=== PATIENT | female | born 1935 | race Caucasian/White ===

== ENCOUNTER 2016-10-31 17:08 | Inpatient (IN) | payer OTHER, MEDICARE ==
[~2016-10-31] VITALS: Ht 172.7 cm; Wt 87.2 kg
--- NOTE | 2016-10-31 17:15 | NUR ---
PT TO ED WITH DAUGHTER FOR EVAL OF LEFT FOOT WOUND, HYPOTENSION AND ADVANCING DIABETIC NEUROPATHY. SENT IN BY DR OCONNOR. PT HAS HAD 30 LB WEIGHT LOSS. BP 85/50, PT TAKEN TO POD 3 VIA W/C FOR PROVIDER EVAL. PT IS HARD OF HEARING.
--- NOTE | 2016-10-31 17:28 | NUR ---
APPRECIATE TRIAGE NOTE. PT TO ROOM 21 VIA WHEELCHAIR AND ASISTED ONTO STRETCHER. PT APPEARS PALE AND REPORTS WEAKNESS, REPOSITIONED FOR COMFORT. AWAITING PROVIDER EVAL AT THIS TIME.
--- NOTE | 2016-10-31 17:49 | NUR ---
PA BLACK TO BEDSIDE TO DISCUSS RESULTS AND POC.
--- NOTE | 2016-10-31 17:58 | ED ANKLE/FOOT INJURY COMPLAINT ---
History of Present Illness General Chief Complaint: General Adult Stated Complaint: SENT BY DR ELVIN MATTHEWS FOR EVAL OF L FOOT Source: patient, family Exam Limitations: no limitations Vital Signs & Intake/Output Vital Signs & Intake/Output Vital Signs Date Time Temp Pulse Resp B/P B/P Pulse O2 O2 Flow FiO2 Mean Ox Delivery Rate 11/01 0007 92 16 108/62 95 Room Air 10/31 2059 96.4 96 20 105/52 95 Room Air 10/31 1907 95 124/65 10/31 1807 98.5 92 18 109/57 98 Room Air Room Air 10/31 1712 98.2 98 20 85/50 97 Room Air ED Intake and Output 11/01 0000 10/31 1200 Intake Total 1000 Output Total 80 Balance 920 Intake, IV 1000 Output, Urine 80 Patient 158 lb Weight Weight Estimated Measurement Method Allergies Coded Allergies: No Known Allergies (10/31/16) Triage Note: PT TO ED WITH DAUGHTER FOR EVAL OF LEFT FOOT WOUND, HYPOTENSION AND ADVANCING DIABETIC NEUROPATHY. SENT IN BY DR OCONNOR. PT HAS HAD 30 LB WEIGHT LOSS. BP 85/50, PT TAKEN TO POD 3 VIA W/C FOR PROVIDER EVAL. PT IS HARD OF HEARING. Triage Nurses Notes Reviewed? yes Occurred: last week Duration: week(s): (1), constant, continues in ED, getting worse Timing: single episode today Severity: moderate, severe Severity Numbers: 10 Pain/Injury Location: Left: Foot. Method of Injury: unknown No Modifying Factors: none Associated Symptoms: swelling, redness LMP (ages 10-50): post menopausal : No Patient currently breastfeeds: No HPI: 80-year-old female with past medical history of diabetes, CHF, A. fib on Eliquis and hypotension sent in by her primary care doctor for evaluation of left foot cellulitis. Patient reports that over the last week she has noticed an ulceration on her left foot that has become red and swollen and painful. Pain is located on the dorsum of the left foot and is worse with movement or touching the area. She rates the pain as a 10 out of 10 and states the pain radiates up her leg. Associated soft tissue swelling in the left lower leg. She also reports swelling in the right lower leg and open lesions on the right foot. She denies any chest pain, shortness of breath, abdominal pain, fevers, dizziness, headaches, syncope, hemoptysis recent surgery, recent travel, estrogen use. She was seen by her doctor earlier today and was going to be started on Levaquin but she came right to the emergency department. Her daughter reports that one week ago she had a ultrasound of the bilateral lower extremities that was negative for DVT. Additionally patient's daughter reports that patient has been increasing her Lasix due to worsening lower extremity edema. She usually takes 20 mg once daily but has now been taking 40 mg. (SANTIAGO MANRIQUE PA-C) Reconcile Medications Apixaban (Eliquis) 2.5 MG TABLET 1 TAB PO BID BLOOD THINNER (Reported) Diltiazem HCl (Cardizem Cd) 240 MG CAP.ER.24H 1 CAP PO QHS HEART/BP (Reported ) Furosemide 20 MG TABLET 1 TAB PO EOD DIURETIC (Reported) Furosemide (Lasix) 40 MG TABLET 1 TAB PO AD DIURETIC (Reported) Levofloxacin (Unknown Strength) TABLET (Unknown Dose) UNKNOWN (Reported) Metformin HCl 500 MG TABLET 1 TAB PO QAM DM (Reported) Metformin HCl 500 MG TABLET 2 TAB PO QPM DM (Reported) Multivitamin (Multi-Day Vitamins) 1 EACH TABLET 1 TAB PO DAILY SUPPLEMENT ( Reported) Omeprazole 40 MG CAPSULE.DR 1 CAP PO DAILY AC GI (Reported) Oxycodone HCl/Acetaminophen (Oxycodone-Acetaminophen 5-325) 5 MG-325 MG TABLET 1 TAB PO 4XDAILY PRN PAIN (Reported) Ramipril 10 MG CAPSULE 1 CAP PO QAM BP (Reported) Simvastatin (Zocor*) 20 MG TABLET 1 TAB PO QPM CHOLESTEROL (Reported) (SALOME LÓPEZ,WIN) Past History Travel History Traveled to [place] past 21 day No Medical History Any Pertinent Medical History? see below for history Neurological: peripheral neuropathy Cardiovascular: AFIB, hypotension Endocrine: diabetes Blood Disorders: anemia Surgical History Surgical History: none Psychosocial History What is your primary language [place] Citizen Tobacco Use: Quit >30 days ago ETOH Use: denies use Illicit Drug Use: denies illicit drug use Family History Hx Contributory? Yes (SANTIAGO MANRIQUE PA-C) Review of Systems Review of Systems Constitutional: Reports: see HPI, malaise, weakness, unexplained weight loss. EENTM: Reports: no symptoms. Respiratory: Reports: no symptoms. Cardiovascular: Reports: no symptoms. GI: Reports: no symptoms. Genitourinary: Reports: no symptoms. Musculoskeletal: Reports: see HPI, joint pain, joint swelling, muscle pain. Skin: Reports: see HPI, lesions. Neurological/Psychological: Reports: no symptoms. Hematologic/Endocrine: Reports: no symptoms. Immunologic/Allergic: Reports: no symptoms. All Other Systems: Reviewed and Negative (HILARIA MCNALLY,SANTIAGO) Physical Exam Physical Exam General Appearance: well developed/nourished, alert, awake, anxious, moderate distress Head: atraumatic, normal appearance Eyes: Bilateral: normal appearance, PERRL, EOMI. Ears, Nose, Throat: normal pharynx, normal ENT inspection Neck: normal inspection, supple, full range of motion, no midline tenderness Cardiovascular/Respiratory: normal breath sounds, normal peripheral pulses, regular rate/rhythm, no respiratory distress Back: normal inspection, normal range of motion, no vertebral tenderness Leg/Knee/Thigh Left: normal range of motion Leg/Knee/Thigh Right: normal range of motion, normal inspection Ankle Left: normal range of motion, soft tissue tenderness, swelling Ankle Right: normal range of motion, soft tissue tenderness, swelling Foot Left: normal range of motion, infection, nail injury (great toe nail missing), soft tissue tenderness, swelling, there is a superficial ulceration approximately 2 cm in diameter located on the dorsum of the foot. There is some surrounding soft tissue swelling and erythema. No focal fluctuant areas or discharge. There are also multiple other smaller ulcerations located on the dorsum of the foot. Neurovascular supply is intact. No lymphatic streaking. Foot Right: normal range of motion, soft tissue tenderness, swelling, there are multiple superficial ulcerations and abrasions located on the right foot. No surrounding erythema or edema. Neurovascular supply is intact. Reflexes: 2+: knee (R), knee (L). Neuro/Vascular: normal motor function, normal sensation Tendon: normal tendon function Psychiatric: awake, alert, oriented x 3 Skin: intact, normal color, warm/dry (HILARIA MCNALLY,SANTIAGO) Progress Differential Diagnosis: DVT, cellulitis, septic arthritis, gout, fracture, dislocation, sprain, contusion, sepsis, septic shock, hypotension, dehydration Plan of Care: Orders Procedure Date/time Status PHOSPHORUS 11/01 599 Active MAGNESIUM 11/01 599 Active CBC WITHOUT DIFFERENTIAL 11/01 599 Active CALCIUM 11/01 599 Active BASIC ELECTROLYTES PLUS BUN&CR 07/04 0600 Active ECHOCARDIOGRAM 07/04 0600 Active LACTIC ACID 11/01 0143 Active LACTIC ACID 11/01 0000 Active Admit to inpatient 10/31 2157 Active Lab Add-on Test 10/31 2134 Active Lab Add-on Test 10/31 2133 Active Pathway - chart 11/01 2123 Active House Staff 11/01 2123 Active Patient Data 11/01 2123 Active Code Status 11/01 2123 Active Patient Data 10/31 2117 Active LACTIC ACID 10/31 205 Complete EKG 10/31 205 Active BLOOD CULTURE 10/31 181 Active VIT D 25 HYDROXY 10/31 181 Active PHOSPHORUS 10/31 181 Active MAGNESIUM 10/31 181 Active GLYCOSYLATED HGB 10/31 181 Active Telemetry/Computer Game Programmer 10/31 175 Active BLOOD CULTURE 10/31 175 Active URINALYSIS 10/31 175 Complete LACTIC ACID 10/31 175 Active C-REACTIVE PROTEIN 10/31 175 Active COMPREHENSIVE METABOLIC PANEL 10/31 175 Active CBC WITHOUT DIFFERENTIAL 10/31 175 Complete B-TYPE NATRIURETIC PEP (BNP) 10/31 1757 Active Intake & Output 10/31 1750 Active Weight 10/31 UNK Active VTE Mechanical Prophylaxis 10/31 UNK Active MISTAKE 10/31 UNK Active Intake & Output 10/31 UNK Active FingerStick- Glucose 10/31 UNK Active Howard, Insertion/Removal/Asses 10/31 UNK Active Elevate 10/31 UNK Active Current Medications Sig/Abundio Start time Last Medication Dose Stop Time Status Admin Diltiazem HCl 240 MG AT BEDTIME 11/01 2200 AC (Cardizem CD) Atorvastatin Calcium 20 MG 1700 11/01 1700 AC (Lipitor) Insulin Aspart 0 TIDAC 11/01 0800 AC (NovoLOG) Omeprazole 40 MG DAILY AC 11/01 0700 AC (Prilosec) Cefazolin Sodium 1,000 MG IQ8 11/01 0000 AC 11/01 (Kefzol-Ancef Inj) 0007 Apixaban 2.5 MG BID 10/31 2301 UNVr (Eliquis) Magnesium Sulfate 2 GM Q2H 10/31 2245 UNVr 11/01 (Mag Sulfate in D5) 11/01 0244 0023 Dextrose/Water 100 ML (D5W) Sodium Chloride 1,000 ML Q13H 10/31 2245 AC 10/31 (Normal Saline 0.9%) 2253 Acetaminophen 650 MG Q6P PRN 10/31 2129 AC (Tylenol) Acetaminophen/ 1 TAB Q6P PRN 10/31 2129 AC Hydrocodone Bitart (Vicodin) Hydromorphone HCl 1 MG Q6P PRN 10/31 2129 AC (Dilaudid) Laboratory Tests 10/31/167: Urine Color YEL, Urine Clarity HAZY H, Urine pH 6.0, Ur Specific [place] 1.020, Urine Protein 30 H, Urine Ketones TRACE H, Urine Nitrite NEG, Urine Bilirubin NEG, Urine Urobilinogen 0.2, Ur Leukocyte Esterase MOD H, Ur Microscopic SEDIMENT EXAMINED, Urine RBC 3-5, Urine WBC > 75 H, Ur Epithelial Cells FEW, Urine Bacteria PACKD H, Urine Hemoglobin SMALL H, Urine Glucose NEG 10/31/162054: Lactic Acid 6.6 H 10/31/161809: Anion Gap 18 H, Estimated GFR 23 L, BUN/Creatinine Ratio 10.5, Glucose 129 H, Hemoglobin A1c Pending, Lactic Acid 8.7 H, Calcium 6.2 L, Phosphorus 4.7 H, Magnesium 0.6 *L, Total Bilirubin 0.6, AST 32, ALT 32, Alkaline Phosphatase 101, C-Reactive Prot, Quant < 0.5, Mnm-W-Kfzmiijcydt Pept 3460 H, Total Protein 5.4 L, Albumin 2.5 L, Globulin 2.9, Albumin/Globulin Ratio 0.9 L, 25-OH Vitamin D Total 10.9 L, CBC w Diff NO MAN DIFF REQ, RBC 2.92 L, MCV 98.5, MCH 32.3 H, RDW 14.5, MPV 8.0, Gran % 80.5 H, Lymphocytes % 14.3 L, Monocytes % 5.0, Eosinophils % 0, Basophils % 0.2, Absolute Granulocytes 6.9 H, Absolute Lymphocytes 1.2, Absolute Monocytes 0.4, Absolute Eosinophils 0, Absolute Basophils 0, PUBS MCHC 32.8 L Microbiology 10/31 1818 BLOOD: Blood Culture - RECD 10/31 1809 BLOOD: Blood Culture - RECD 10/31 1756 BLOOD: Blood Culture - CAN Cancelled: Cancelled via OE: WRONG 6 PM: Patient seen and evaluated. There are multiple erythematous ulcerations located on the bilateral feet. She is hypotensive to the 80s over 50s. We'll give her a liter of normal saline an effort to bring up her blood pressure. Possible that her blood pressure may be so low due to increased Lasix. Blood cultures drawn lactic acid basic blood work. We'll then start her on ceftriaxone IV. Blood pressure is too low for pain medication. She'll be reassessed after a fluid bolus. 8PM: Pressure responded well to a fluid bolus. Last blood pressure was 120s over 60s. Lactic acid came back at 8.7 which may be due to the hypotension. Patient doesn't have a white blood cell count, she is afebrile, and left lower cellulitis does not look severe. It is unlikely that patient was in septic shock. Hypotension responded very well to fluids and was likely the result of increasing Lasix over the past few days. Calcium is also low and BUN and creatinine are elevated compared to previous. DISCUSSED findings with patient. Recommended patient be admitted for IV antibiotics, gentle hydration, serial labs, blood pressure monitoring, calcium repletion. As well as paged. Case discussed with Dr. Oconnor and she agrees the plan. (SANTIAGO MANRIQUE PA-C) Departure Departure Disposition: STILL A PATIENT Condition: Stable Clinical Impression Primary Impression: Hypotension Qualifiers: Hypotension type: unspecified hypotension type Qualified Code: I95.9 - Hypotension, unspecified Secondary Impressions: Foot ulcer, left Qualifiers: Non-pressure ulcer stage: limited to breakdown of skin Qualified Code: L97.521 - Non-pressure chronic ulcer of other part of left foot limited to breakdown of skin Hypocalcemia Lactic acidemia Referrals: ELVIN LÓPEZ,CELE Rivers (PCP/Family) Departure Forms: Customer Survey General Discharge Information Admission Note Spoke With: SHABNAM LÓPEZ,DALE Documentation of Exam: Documentation of any treatments & extenuating circumstances including Concerns Regarding Discharge (functional status, medication knowledge or non-compliance, living conditions, etc.) that warrant an admission rather than observation: Patient requires admission due to hypotension, hypocalcemia, lactic acidosis, and foot ulcerations. [Patient requires gentle iv hydration, serial labs, infectious disease consult, cardiology consult, calcium repletion, monitoring of vital signs, iv antibiotics] (SANTIAGO MANRIQUE PA-C) PA/MATE SHIP Co-Sign Statement Statement: ED Attending supervision documentation- [X] I saw and evaluated the patient. I have also reviewed all the pertinent lab results and diagnostic results. I agree with the findings and the plan of care as documented in the PA's/MATE SHIP's documentation. [X] I have reviewed the ED Record and agree with the PA's/MATE SHIP's documentation. [] Additions or exceptions (if any) to the PAs/MATE SHIP's note and plan are summarized below: [] (SALOME LÓPEZ,WIN)
--- NOTE | 2016-10-31 18:14 | NUR ---
BLOOD DRAWN AND SENT TO LAB. LAV,SST,BLUE,DUMONT, 1ST SET OF BLOOD CULTURES.
--- NOTE | 2016-10-31 18:27 | NUR ---
#22 EST. AND NS IVF BOLUS ADMINISTERED PER ORDER.
[2016-10-31 18:35] LABS: ABSOLUTE BASOPHIL COUNT 0 /CUMM (0.0-0.2); ABSOLUTE EOSINOPHIL COUNT 0 /CUMM (0.0-0.7); ABSOLUTE GRANULOCYTE CT 6.9 /CUMM (1.4-6.5); ABSOLUTE LYMPH COUNT 1.2 /CUMM (1.2-3.4); ABSOLUTE MONOCYTE COUNT 0.4 /CUMM (0.10-0.60); BASOPHIL % 0.2 % (0.0-2.0); EOSINOPHIL % 0 % (0-5); GRANULOCYTE % 80.5 % (42.2-75.2); HEMATOCRIT 28.7 % (37-47); MEAN CORPUSCULAR HGB 32.3 PG (27.0-31.0); MEAN CORPUSCULAR HGB CONC 32.8 G/DL (33.0-37.0); MEAN CORPUSCULAR VOLUME 98.5 FL (81.0-99.0); PLATELET COUNT 229 /CUMM (130-400); RBC DISTRIBUTION WIDTH 14.5 % (11.5-14.5); RED BLOOD CELL CT 2.92 /CUMM (4.20-5.40); WHITE BLOOD CELL COUNT 8.6 /CUMM (4.8-10.8)
--- NOTE | 2016-10-31 18:40 | NUR ---
PA BLACK TO BEDSIDE TO DISCUSS PLAN OF CARE
--- NOTE | 2016-10-31 19:06 | NUR ---
MED WITH ROCEPHIN PER eMAR. XEROFORM WOUND TO LEFT FOOT COVERED AND WRAPPED. R LATERAL FOOT ULCER RED, WARM AND ALSO COVERED
--- NOTE | 2016-10-31 19:46 | NUR ---
CRITICAL TEST RESULTS [id number] CATHERINE LEAL 80 F TESTS AND RESULTS: LACTIC 8.7 Results received and read back by: MARY URBANO Results received date and time: 10/31/161945 The following provider was notified of the results, and read the results back: YENNY HENDERSON Notified date and time: 10/31/16 at 1947
--- NOTE | 2016-10-31 19:55 | NUR ---
DR. MCMAHON TO BEDSIDE FOR EVALUATION.
--- NOTE | 2016-10-31 20:59 | NUR ---
REPEAT LACTIC ACID ORDAZ
--- NOTE | 2016-10-31 21:20 | NUR ---
RADIOLOGY TO BEDSIDE FOR PCXY.
--- NOTE | 2016-10-31 21:40 | History & Physical ---
GERARDO YANG MD 10/31/16 4542: General Information and HPI MD Statement: I have seen and personally examined CATHERINE LEAL and documented this H&P. The patient is a 80 year old F who presented with a patient stated chief complaint of left foot redness and pain. Presents with acute renal failure and hypotension. Source of Information: patient, family, old records Exam Limitations: no limitations History of Present Illness: 80 year old female with PMH of Afib on eliquis, DM with neuropathy, CHF with no recent cardiology follow up, presents to ER for hypotension after being evaluated at the doctors office for left foot cellulitis/wound care and her BP was in the 80s systolic. Patient has been complaining off lightheadedness intermittently for several weeks and complaints of increasing lower extremity edema. Her lasix dose was doubled from 20mg to 40mg four days ago. Otherwise, review of systems is negative. Patient is independent and lives alone. Former smoker. Allergies/Medications Allergies: Coded Allergies: No Known Allergies (10/31/16) Home Med list Apixaban (Eliquis) 2.5 MG TABLET 1 TAB PO BID BLOOD THINNER (Reported) Diltiazem HCl (Cardizem Cd) 240 MG CAP.ER.24H 1 CAP PO QHS HEART/BP (Reported ) Furosemide 20 MG TABLET 1 TAB PO EOD DIURETIC (Reported) Furosemide (Lasix) 40 MG TABLET 1 TAB PO AD DIURETIC (Reported) Levofloxacin (Unknown Strength) TABLET (Unknown Dose) UNKNOWN (Reported) Metformin HCl 500 MG TABLET 1 TAB PO QAM DM (Reported) Metformin HCl 500 MG TABLET 2 TAB PO QPM DM (Reported) Multivitamin (Multi-Day Vitamins) 1 EACH TABLET 1 TAB PO DAILY SUPPLEMENT ( Reported) Omeprazole 40 MG CAPSULE.DR 1 CAP PO DAILY AC GI (Reported) Oxycodone HCl/Acetaminophen (Oxycodone-Acetaminophen 5-325) 5 MG-325 MG TABLET 1 TAB PO 4XDAILY PRN PAIN (Reported) Ramipril 10 MG CAPSULE 1 CAP PO QAM BP (Reported) Simvastatin (Zocor*) 20 MG TABLET 1 TAB PO QPM CHOLESTEROL (Reported) Compliance With Home Meds: GOOD Past History Travel History Traveled to [place] past 21 day No Medical History Neurological: peripheral neuropathy Cardiovascular: AFIB, hypotension Endocrine: diabetes Blood Disorders: anemia Surgical History Surgical History: none Past Family/Social History Psychosocial History ETOH Use: denies use Illicit Drug Use: denies illicit drug use Review of Systems Review of Systems Constitutional: Reports: chills, unexplained weight loss (10 pounds in 5 months). Denies: fever , malaise. Cardiovascular: Reports: edema, peripheral edema. Denies: chest pain. Respiratory: Denies: no symptoms. GI: Denies: abdominal pain, diarrhea, nausea. Genitourinary: Denies: no symptoms. Musculoskeletal: Denies: no symptoms. Exam & Diagnostic Data Last 24 Hrs of Vital Signs/I&O Vital Signs Date Time Temp Pulse Resp B/P B/P Pulse O2 O2 Flow FiO2 Mean Ox Delivery Rate 10/31 2058 96.4 96 20 105/52 95 Room Air 10/31 1907 95 124/65 10/31 1807 98.5 92 18 109/57 98 Room Air Room Air 10/31 1712 98.2 98 20 85/50 97 Room Air Physical Exam General Appearance Alert, Oriented X3, Cooperative, No Acute Distress Skin breakdown on feet, loss of toenails Skin Temp/Moisture Exam: Warm/Dry Sepsis Skin Exam (color): Pale HEENT Atraumatic, PERRLA, EOMI, Mucous Membr. moist/pink Neck Supple, No JVD Lymphatic Cervical nl Cardiovascular irregular rhythm 2/6 systolic murmur Lungs Clear to Auscultation, Normal Air Movement Abdomen Normal Bowel Sounds, Soft, large midline abdominal mass/reported as hernia? Neurological Normal Speech, Normal Tone, Cranial Nerves 3-12 NL, diminished foot sensation Extremities 2+ pitting edema to knees b/l Body Front and Back (Adult) 1) LLE cellulitis 2) Left foot wound 3) no toenail Last 24 Hrs of Labs/Carlos: Laboratory Tests 10/31/162054: Lactic Acid 6.6 H 10/31/16 1810: Anion Gap 18 H, Estimated GFR 23 L, BUN/Creatinine Ratio 10.5, Glucose 129 H, Hemoglobin A1c Pending, Lactic Acid 8.7 H, Calcium 6.2 L, Phosphorus 4.7 H, Magnesium 0.6 *L, Total Bilirubin 0.6, AST 32, ALT 32, Alkaline Phosphatase 101, C-Reactive Prot, Quant < 0.5, [id number] Pept 3460 H, Total Protein 5.4 L, Albumin 2.5 L, Globulin 2.9, Albumin/Globulin Ratio 0.9 L, 25-OH Vitamin D Total Pending, CBC w Diff NO MAN DIFF REQ, RBC 2.92 L, MCV 98.5, MCH 32.3 H, RDW 14.5, MPV 8.0, Gran % 80.5 H, Lymphocytes % 14.3 L, Monocytes % 5.0, Eosinophils % 0, Basophils % 0.2, Absolute Granulocytes 6.9 H, Absolute Lymphocytes 1.2, Absolute Monocytes 0.4, Absolute Eosinophils 0, Absolute Basophils 0, PUBS MCHC 32.8 L Microbiology 10/31 1818 BLOOD: Blood Culture - RECD 10/31 1809 BLOOD: Blood Culture - RECD 10/31 175 BLOOD: Blood Culture - CAN Cancelled: Cancelled via OE: WRONG Diagnostic Data EKG Results atrial fibrillation and qs waves in v1 v2 CXR Results cardiomegaly and left lung base opacity Assessment/Plan Assessment: 80 year old female with PMH of Afib, CHF, DM presents to ER for hypotension after evaluation for left foot cellulitis/wound care at PCP. 1. Hypotension: patient had lasix dose recently doubled, hypotension secondary to hypovolemia and improved with IV fluid hydration. Admit to general medicine. Monitor vitals qshift 2. Acute Renal Failure: likely prerenal with history of recently increased diuretic, will place patel to rule out post renal causes and obtain urinalysis. NS@75cc/hr Follow up AM labs to reassess renal function 3. Lactic Acidosis: also related to hypovolemia and hypotension, inadequate perfusion in the setting of overdiuresis. Trend lactate levels and continue gentle IV fluid hydration until normal. 4. Atrial Fibrillation: Continue rate control with diltiazem XL 240mg QHs Eliquis 2.5mg BID for anticoagulation 5. CHF: patient has not followed up with cardiology, currently lungs are clear and clinically patient is hypovolemic rather than fluid overload, continue IV hydration cautiously, repeat CXR tomorrow. Check echocardiogram Consider cardiology consultation Check daily weights 6. Electrolyte disturbances: calcium repleted in the ER, Magnesium 2g IV x 2 ordered, critical value 0.6 7. Cellulitis-start IV Ancef follow up blood cultures drawn in ER Consider wound care consultation 8. Diabetes: Accucheck TIDAC/HS Sliding insulin scale Check hemoglobin a1c 9. Abdominal mass: patient is reluctant to have what she reports as a large hernia for many years investigated or repaired, will reassess if any GI symptoms or complaints of abdominal pain Diabetic diet DVT ppx-eliquis Full code-patient doesn't desire prolonged resuscitative effort As Ranked By This Provider Problem List: 1. Foot ulcer, left Qualifiers Non-pressure ulcer stage: limited to breakdown of skin Qualified Code: L97.521 - Non-pressure chronic ulcer of other part of left foot limited to breakdown of skin 2. Hypocalcemia 3. Hypotension Qualifiers Hypotension type: unspecified hypotension type Qualified Code: I95.9 - Hypotension, unspecified 4. Acute renal failure 5. Atrial fibrillation, chronic Core Measures/Miscellaneous Acute Coronary Syndrome ACS Diagnosis: No Cerebrovascular Accident CVA/TIA Diagnosis: No Congestive Heart Failure CHF Diagnosis: No VTE (View Protocol) VTE Risk Factors: Acute medical illness, Age > 40 No [facility] VTE prophylaxis d/t: No contraindications No VTE Pharm Prophylaxis d/t: No contraindications VTE Diagnosis: No VTE Type: NONE VTE Confirmed by (Test): NONE Sepsis (View Protocol) Severe Sepsis Present: No Septic Shock Septic Shock Present: No Miscellaneous Documentation Attending Case Discussed With: DALE HAQUE MD Primary Care Physician: CELE OCONNOR MD Patient sees these Specialists none Level of Patient Care: General Medicine PERRY LUDWIG 10/31/16 2300: Resident Review Statement Resident Statement: examined this patient, discussed with internet project manager, agreed with internet project manager Other Findings: Patient is 80-year-old female with past medical history significant for diabetes with diabetic neuropathies, hypertension, vitamin B12 deficiency anemia, atrial fibrillation and congestive heart failure came with chief complaint of worsening lower extremity edema and left lower extremity edema with being wounds for last couple of days. Patient endorses that she was very tired and noticed worsening lower extremity edema last 3 weeks. She had history of off-and-on lower extremity wounds and severe peripheral neuropathies but her left lower extremity wound was weeping for last couple of days for which she went to see her PCP and was advised to go to ER for evaluation of left lower extremity cellulitis and hypotension. Because of worsening lower extremity edema she was placed on high dose of Lasix than usual. She had intermittent lightheadedness but denies any fall or syncopal episode. She denied chest pain, palpitations, headache, fever, chills, cough, any urinary or bowel complaints. She is compliant with her medications and denied any polyuria lately. She does loss almost 10 pounds in 5-6 months. He hasn't been seen any tube inspector for a long time. She lives alone at home and independent with her ADLs and IADLs. Uses walker at home for ambulation. Vital signs on admission were temperature 98.2, pulse 88, respiratory rate 20, blood pressure 85/50. Her on 105/52, oxygen saturation 97% on room air. Labs were significant for WBC count 8.6, hemoglobin 9.4, hematocrit 28.7, platelet count 229, sodium 139, potassium 4.4, BUN/creatinine 22, creatinine 2.1 , lactic acid 8.7 came down to 6.6, calcium 6.2 corrected 7.0, phosphorus 4.7, magnesium 0.6, proBNP 3460, albumin 2.5. Had recent lower extremity Doppler on October 13 showed no evidence of DVT. X-ray showed cardiomegaly with intermediate patchy opacity of left lung base. ED showed atrial fibrillation with no acute ST-T wave changes Physical examination She is alert and oriented 3 Head atraumatic Neck supple no JVD Chest clear to auscultate CVS S1 and S2 normal with irregularly irregular heart rate Abdomen soft to prevent with large abdominal hernia/mass freely mobile, no suprapubic tenderness or fullness, normal bowel sounds Lower extremities showed bilateral moderate lower extremity edema up to knees, multiple small wounds with absent left big toenail, open wound 2X2cm dorsal surface of left foot covered with dressing and lower extremity was wrapped in Levi bandages. On neurological examination decreased sensations of bilateral lower extremities with loss of position sense Suspect and plan 80-year-old female with history of severe peripheral neuropathies with diabetes, atrial fibrillation, CHF, hypertension and worsening lower extremity edema with left-sided lower extremity erythema most likely cellulitis and acute kidney injury most likely due to dehydration and recent increase in her diuretics. Admit patient on general medical floor and will take care for the following problems Problem #1 worsening bilateral lower extremity edema with left lower extremity cellulitis 1. We'll start patient on cefazolin and will change it to Keflex later. 2. Leg elevation 3. Daily weight and intake output record 4. We'll consider 1 consultation in a.m. and daily dressings 4. Echocardiogram in a.m. Problem #2 lactic acidosis most likely due to hypotension 1. We'll hydrate patient with normal saline 2. Will trend lactic acidosis Problem #3 hypotension most likely due to increase in her diuretics 1. We will check orthostatics 2. IV hydration Problem #4 hypomagnesemia most likely due to increasing diuretics We will replete magnesium with 2 g IV magnesium time to use and will repeat back in a.m. Problem #5 hypocalcemia most likely chronic She had calcium of 6.2 with corrected 7.0 and was given oral calcium for now we will consider giving oral calcium on discharge but given her history of AK I we will hold further calcium for now Problem #6 abdominal hernia/mass Patient refused to consider any further workup including CAT scan/any imaging study. Problem #7 acute kidney injury most likely due to increase in her dose of Lasix and dehydration We will place Patel's catheter for intake output record and rule out any post renal obstruction We will hydrate patient and check kidney functions in a.m. Problem #8 history of atrial fibrillation We'll continue her home dose of Eliquis Will continue her diltiazem Problem #9 history of hypertension We will hold her lisinopril and Lasix Problem #10 history of diabetes We will hold her oral hypoglycemics Accu-Cheks We'll start her on NovoLog according to sliding scale Problem #11 history of peripheral/diabetic neuropathies Given her oxycodone when necessary Diabetic diet Pharmacological DVT prophylaxis with Eliquis Patient is full code SHABNAM LÓPEZ, [facility] 11/01/16 0503: Attending MD Review Statement Attending Statement Attending MD Statement: examined this patient, discuss w/resident/PA/EDITORIAL CARTOONIST, agreed w/resident/PA/EDITORIAL CARTOONIST, discussed with family Attending Assessment/Plan: 80 yo F with h/o Afib on eliquis, T2DM w/ neuropathy, HTN, B12 def anemia, CHF, is brought in for evaluation of hypotension. History as provided by daughter, who reports ongoing bilateral LE edema for the past 3 weeks associated with leg pain and left foot wounds. She was advised to double up on the dose of lasix by her PCP, so patient has been taking 40 mg daily for past 3-4 days. He also prescribed levofloxacin for left foot cellulitis, but this has not been initiated yet. Today, at PCP's office, patient was noted to have a BP 80/65 and was sent in for evaluation to [facility]. Patient reports fatigue, exertional dyspnea and intermittent lightheadedness in the past few days. Denies chest pain , LOC or palpitations. Of note, daughter reports about 30 lbs weight lostt over past 6 months. Vitals: afebrile, BP 85/50 --> 124/65 --> 105/52. Exam: AAO, pallor+, dry mucous membranes, Chest clear, Abdo: soft, NT, midline soft globular mass ?hernia of unclear etiology, LE: b/l 2+ pitting edema with open wounds to left foot dorsal aspect with surrounding erythema, left great toenail absent. Labs: no leukocytosis, H/H 9.4/28.7 (baseline), bicarb 15, AG 18, BUN 22, creat 2.1 ( baseline 0.9), glucose 129, lactic acid 8.7 --> 6.6 --> 5.8, Calcium 6.2 ( corrected calcium 7.4), Mag 0.6, vit D 10.9. Orthostats negative. EKG: Afib. CXR : cardiomegaly with patchy opacity left lung base. LE dopplers (October 13) were negative for DVT. 1. Hypotension with resultant lactic acidosis, MISTY with high AG metabolic acidosis in the setting of recent diuretic use. BP has responded to IV fluids. GM admit, continue IV fluids, monitor for fluid overload, trend lactic acid and renal functions. Hold lasix, metformin and ramipril. Patel placement to rule out urinary obstruction/post renal cause. Strict I/O's. If renal functions does not improve, would consider renal ultrasound and nephro consult. 2. B/l LE edema with left foot cellulitis and nonhealing ulcer. Elevate LE, panculture, IV cefazolin, wound consult. Obtain echo to assess LV function. Unclear cause for worsening LE edema in the past 3 weeks. 3. Hypomagnesemia. Replete and recheck. 4. Abdominal mass of unclear etiology. Patient refuses to undergo further investigation with CT imaging, reports no discomfort that it has been there for many years now. 5. B12 deficiency anemia. Patient is being followed by Dr. Najma Weston and is on repletion. DVT ppx Eliquis. Full code.
--- NOTE | 2016-10-31 21:45 | NUR ---
PT MEDICATED PER EMAR.
--- NOTE | 2016-10-31 21:54 | RADIOLOGY REPORT ---
EXAMINATION: XR PORTABLE CHEST CLINICAL INFORMATION: Shortness of breath with lower extremity edema. COMPARISON: 01/06/2006. TECHNIQUE: Portable frontal view of the chest was obtained. FINDINGS: The heart appears mildly enlarged with a tortuous descending thoracic aorta. There is patchy nodular opacity identified lateral to the left heart margin at the left lung base indeterminate in etiology. An evolving infiltrate and pneumonia in the proper clinical setting could have this appearance. An underlying pulmonary nodule and neoplasm is not excluded. The lungs and pleural spaces otherwise appear clear without evidence of congestion, consolidation, or significant appearing effusion or atelectasis. There is no evidence of pneumothorax or pulmonary edema. Included osseous structures appear largely unremarkable. IMPRESSION: Cardiomegaly with indeterminate patchy opacity left lung base for which follow-up imaging is recommended to clearing.
--- NOTE | 2016-10-31 21:58 | NUR ---
HOUSE STAFF TO BEDSIDE FOR EVALUATION.
[2016-10-31] MEDS ORDERED: FUROSEMIDE20 M1 PO (22:00)
[2016-10-31] MEDS ORDERED: METFORMIN HCL500 M3 PO ×2 (22:00)
[2016-10-31] MEDS ORDERED: ELIQUIS2.5 M1 PO (22:00)
[2016-10-31] MEDS ORDERED: CARDIZEM CD240 M1 PO (22:01)
[2016-10-31] MEDS ORDERED: OMEPRAZOLE40 M1 PO (22:01)
[2016-10-31] MEDS ORDERED: ZOCOR20 M1 PO (22:01)
[2016-10-31] MEDS ORDERED: MULTI-DAY VITA1 EACH PO (22:01)
[2016-10-31] MEDS ORDERED: RAMIPRIL10 M1 PO (22:02)
[2016-10-31] MEDS ORDERED: OXYCODONE-ACET1 EACH PO (22:02)
[2016-10-31] MEDS ORDERED: LEVOFLOXACIN500 M1 (22:05)
[2016-10-31] MEDS ORDERED: LASIX40 M1 PO (22:07)
--- NOTE | 2016-10-31 22:12 | NUR ---
CRITICAL TEST RESULTS [id number] CATHERINE LEAL 80 F TESTS AND RESULTS: MAGNESIUM 0.6 Results received and read back by: KAITLIN GARCIA Results received date and time: 10/31/16 2212 The following provider was notified of the results, and read the results back: HOUSE STAFF Notified date and time: 10/31/16 at 2212
--- NOTE | 2016-10-31 22:45 | NUR ---
CRITICAL TEST RESULTS [id number] CATHERINE LEAL 80 F TESTS AND RESULTS: LACTIC 6.6 Results received and read back by: KAITLIN GARCIA Results received date and time: 10/31/16 2300 The following provider was notified of the results, and read the results back: HOUSE STAFF Notified date and time: 10/31/16 at 2245
--- NOTE | 2016-10-31 22:48 | NUR ---
PT BED ASSIGNMENT 229-2
--- NOTE | 2016-10-31 22:53 | NUR ---
UNABLE TO GIVE REPORT AT THIS TIME. PER MINISTER OF RELIGION RN'S ARE IN REPORT AT THIS TIME.
--- NOTE | 2016-10-31 23:40 | NUR ---
MAGNESIUM 2G INFUSING PER EMAR. PT TOLERATING WELL. PT WAITING FOR RN REPORT TO BE TRANSPORTED UPSTAIRS.
--- NOTE | 2016-11-01 00:29 | NUR ---
REPORT CALLLED TO MIKAYLA DIXON
[2016-11-01 01:22] VITALS: BP 100/50
--- NOTE | 2016-11-01 05:03 | Admission Certification ---
Admission Certification Certification Statement - As attending physician, I certify that at the time of - admission, based on clinical presentation, severity of - symptoms, need for further diagnostic testing and - therapeutic interventions, and risk of adverse outcomes - without in-hospital treatment, in my clinical assessment, - this patient requires an acute hospital stay for a minimum - of two nights or longer. I have also considered psychsocial - factors such as support system, advanced age, financial - issues, cognitive issues, and failed out-patient treatments, - past re-admission history, safety of patient, and lack of - compliance as applicable. Specific rationale supporting this admission is: Hypotension, MISTY, lactic acidosis.
[2016-11-01 06:54] VITALS: BP 108/80
[2016-11-01 08:14] LABS: ABSOLUTE BASOPHIL COUNT 0 /CUMM (0.0-0.2); ABSOLUTE EOSINOPHIL COUNT 0 /CUMM (0.0-0.7); ABSOLUTE GRANULOCYTE CT 6.2 /CUMM (1.4-6.5); ABSOLUTE LYMPH COUNT 1.7 /CUMM (1.2-3.4); ABSOLUTE MONOCYTE COUNT 0.5 /CUMM (0.10-0.60); BASOPHIL % 0.2 % (0.0-2.0); EOSINOPHIL % 0.5 % (0-5); GRANULOCYTE % 73.9 % (42.2-75.2); HEMATOCRIT 27.2 % (37-47); MEAN CORPUSCULAR HGB 32.8 PG (27.0-31.0); MEAN CORPUSCULAR HGB CONC 33.5 G/DL (33.0-37.0); MEAN CORPUSCULAR VOLUME 97.9 FL (81.0-99.0); MEAN PLATELET VOLUME 8.2 FL (7.4-10.4); PLATELET COUNT 186 /CUMM (130-400); RBC DISTRIBUTION WIDTH 14.1 % (11.5-14.5); RED BLOOD CELL CT 2.78 /CUMM (4.20-5.40); WHITE BLOOD CELL COUNT 8.4 /CUMM (4.8-10.8)
--- NOTE | 2016-11-01 08:53 | PN- Housestaff ---
GILLIAN LÓPEZ,MONICA 11/01/16 0849: Subjective Follow-up For: Hypotension in the setting of diuretic use MISTY with anion gap acidosis Multiple electrolyte abnormalities Subjective: I saw and examined the patient today morning She is doing well, reports significant pain on both her lower extremities (leg region), denies any lightheadedness, dizziness. She reports intense fatigue and unable to sleep overnight otherwise stable. Review of Systems Constitutional: Reports: see HPI. Objective Last 24 Hrs of Vital Signs/I&O Vital Signs Date Time Temp Pulse Resp B/P B/P Pulse O2 O2 Flow FiO2 Mean Ox Delivery Rate 11/01 0654 97.7 79 20 108/80 94 Room Air 11/01 0122 97.8 83 20 100/50 93 Room Air 11/01 0007 92 16 108/62 95 Room Air 10/31 2059 96.4 96 20 105/52 95 Room Air 10/31 1907 95 124/65 10/31 1807 98.5 92 18 109/57 98 Room Air Room Air 10/31 1712 98.2 98 20 85/50 97 Room Air Intake & Output 11/01 1600 11/01 0800 11/01 0000 Intake Total 1400 1000 Output Total 500 80 Balance 900 920 Intake, IV 1300 1000 Intake, Oral 100 Number 1 1 Bowel Movements Output, Urine 500 80 Patient 73.936 kg 71.668 kg Weight Weight Estimated Estimated Measurement Method Physical Exam General Appearance: Alert, Oriented X3, Cooperative, No Acute Distress Skin: No Rashes, No Breakdown HEENT: Atraumatic, PERRLA, EOMI Neck: Supple Cardiovascular: Normal S1, Normal S2, systolic murmur present Lungs: Clear to Auscultation, Normal Air Movement, minimal basal crackles present Abdomen: Normal Bowel Sounds, Soft, No Tenderness Neurological: Normal Speech, Sensation Intact, Cranial Nerves 3-12 NL Extremities: No Clubbing, No Cyanosis, 4+ pitting edema right > left Current Medications: Current Medications Sig/Abundio Start time Last Medication Dose Route Stop Time Status Admin Acetaminophen 650 MG Q6P PRN 10/31 2130 AC PO Acetaminophen/ 1 TAB Q6P PRN 10/31 2130 AC Hydrocodone Bitart PO Apixaban 2.5 MG BID 11/01 0130 AC 11/01 PO 1047 Atorvastatin Calcium 20 MG 1700 11/01 1700 AC PO Calcium 600 MG BID 11/01 1000 AC 11/01 PO 11/01 2201 1047 Calcium Carbonate 1,250 MG ONCE ONE 10/31 2014 DC 10/31 PO 10/31 2016 2144 Cefazolin Sodium 0 .STK-MED ONE 11/01 0008 DC .ROUTE Cefazolin Sodium 1,000 MG IQ8 / 0000 AC 11/01 IV 0847 Ceftriaxone Sodium 0 .STK-MED ONE 10/31 1858 DC .ROUTE Ceftriaxone Sodium 1,000 MG ONCE ONE 10/31 1815 DC 10/31 IV 10/31 1816 1850 Diltiazem HCl 240 MG AT BEDTIME 11/01 2200 AC PO Heparin Sodium 0 .STK-MED ONE 10/31 2308 DC (Porcine) .ROUTE Heparin Sodium 5,000 UNIT Q8 10/31 2200 DC 10/31 (Porcine) SC 2254 Hydromorphone HCl 1 MG Q6P PRN 10/31 2130 AC 11/01 IV 0556 Insulin Aspart 0 TIDAC 11/01 0800 AC SC Magnesium Chloride 64 MG BID 11/01 1000 AC 11/01 PO 11/01 2201 1047 Magnesium Sulfate 1 GM ONCE ONE 11/01 0900 AC 11/01 Dextrose/Water 100 ML IV 11/01 1259 1047 Magnesium Sulfate 2 GM Q2H 10/31 2245 DC 11/01 Dextrose/Water 100 ML IV 11/01 0244 0023 Omeprazole 40 MG DAILY AC 11/01 0700 AC 11/01 PO 0552 Oxycodone/ 0 .STK-MED ONE 10/31 2145 DC Acetaminophen PO Oxycodone/ 1 TAB ONCE ONE 10/31 2100 DC 10/31 Acetaminophen PO 10/31 2101 2144 Potassium Chloride 40 MEQ ONCE ONE 11/01 0900 DC 11/01 PO 11/01 0901 1047 Sodium Chloride 1,000 ML Q13H 10/31 2245 AC 11/01 IV 0130 Sodium Chloride 1,000 ML BOLUS ONE 10/31 1815 DC 10/31 IV 10/31 1914 1825 Last 24 Hrs of Lab/Carlos Results Last 24 Hrs of Labs/Mics: Laboratory Tests 11/01/16 1110: Lactic Acid Pending 11/01/16 0640: Lactic Acid 3.6 H 11/01/16 0640: Anion Gap 13, Estimated GFR 29 L, BUN/Creatinine Ratio 11.2, Calcium 5.4 *L, Phosphorus 3.7, Magnesium 1.1 L, PTH Intact 184.6 H, CBC w Diff NO MAN DIFF REQ, RBC 2.78 L, MCV 97.9, MCH 32.8 H, RDW 14.1, MPV 8.2, Gran % 73.9, Lymphocytes % 19.7 L, Monocytes % 5.7, Eosinophils % 0.5, Basophils % 0.2, Absolute Granulocytes 6.2, Absolute Lymphocytes 1.7, Absolute Monocytes 0.5, Absolute Eosinophils 0, Absolute Basophils 0, PUBS MCHC 33.5 11/01/16 0300: Lactic Acid Cancelled 11/01/16 0143: Lactic Acid Cancelled 11/01/16 0050: Lactic Acid 5.8 H 10/31/16 2327: Urine Color YEL, Urine Clarity HAZY H, Urine pH 6.0, Ur Specific Odum 1.020, Urine Protein 30 H, Urine Ketones TRACE H, Urine Nitrite NEG, Urine Bilirubin NEG, Urine Urobilinogen 0.2, Ur Leukocyte Esterase MOD H, Ur Microscopic SEDIMENT EXAMINED, Urine RBC 3-5, Urine WBC > 75 H, Ur Epithelial Cells FEW, Urine Bacteria PACKD H, Urine Hemoglobin SMALL H, Urine Glucose NEG 10/31/16 2055: Lactic Acid 6.6 H 10/31/16 1810: Anion Gap 18 H, Estimated GFR 23 L, BUN/Creatinine Ratio 10.5, Glucose 129 H, Hemoglobin A1c Pending, Lactic Acid 8.7 H, Calcium 6.2 L, Phosphorus 4.7 H, Magnesium 0.6 *L, Total Bilirubin 0.6, AST 32, ALT 32, Alkaline Phosphatase 101, Troponin I < 0.01, C-Reactive Prot, Quant < 0.5, Sdh-S-Hglcbbidbez Pept 3460 H, Total Protein 5.4 L, Albumin 2.5 L, Globulin 2.9, Albumin/Globulin Ratio 0.9 L, 25-OH Vitamin D Total 10.9 L, CBC w Diff NO MAN DIFF REQ, RBC 2.92 L, MCV 98.5, MCH 32.3 H, RDW 14.5, MPV 8.0, Gran % 80.5 H, Lymphocytes % 14.3 L, Monocytes % 5.0, Eosinophils % 0, Basophils % 0.2, Absolute Granulocytes 6.9 H, Absolute Lymphocytes 1.2, Absolute Monocytes 0.4, Absolute Eosinophils 0, Absolute Basophils 0, PUBS MCHC 32.8 L Microbiology 10/31 1818 BLOOD: Blood Culture - RECD 10/31 1809 BLOOD: Blood Culture - RECD 10/31 1756 BLOOD: Blood Culture - CAN Cancelled: Cancelled via OE: WRONG Assessment/Plan Assessment: 80-year-old female with history of 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 Labs at admission significant for WBC count 8.6, H&H 9.4/28.7, platelet count 229, Na 139, K 4.4, BUN/Cr 22, Cr 2.1, lactic acid 8.7 --> 6.6, calcium 6.2 corrected 7.0, phosphorus 4.7, magnesium 0.6, proBNP 3460, albumin 2.5. Recent lower extremity Doppler on 10/13/16 showed no evidence of DVT. X-ray showed cardiomegaly with intermediate patchy opacity of left lung base. EKG A.Fib with no acute ST-T wave changes No previous ECHO records available - EF unknown for now. Admit patient on general medical floor and will take care for the following problems worsening bilateral lower extremity edema with left lower extremity cellulitis * Continue cefazolin 1gm Q8 with eventual transition to Keflex later. * Leg elevation * Daily weight and intake output record * wound consultation in a.m. and daily dressings * Echocardiogram in a.m. Lactic acidosis in the setting of MISTY/hyotension/metformin intake * Aggressively hydrated with 3L NS so far * Currently on NS @ 75ml/hr * Aniongap resolved * Lactic acid trending down 8.7 --> 6.6 --> 5.8-->3.6 * Holding lasix/metformin/ hypotension most likely secondary to dehydration (diuretic induced) * Orthostatics negative and asymptomatic * Continue hydration and monitor for signs of overload * EF unknown -- we will obtain an ECHO for a baseline ECHO * examination today is significant for good air entry into lungs with very minimal crackles and 3-4+ pitting edema Multiple electrolyte abnomalitis in the setting increased lasix dose * Mag of 0.6 at admission--> 1.1 today morning -- aggressively repleting * Calcium of 6.2 (corrected 7) at admission --> 5.4 today morning -- repleted * K of 4.4 at admission --> 3.3 today morning -- repleted * Recheck BEP at 4pm abdominal mass probably hernia * Patient refused to consider any further workup including CAT scan/any imaging study. MISTY * Cr 2.1 at admission --> 1.7 responding to fluids indicating prerenal * Howard's catheter in place * Monitor In's and Out's given EF unknown -- total urine output 1000ml * Holding lasix and lisinopril Chronic and stable conditions Atrial fibrillation: continue eliquis 2.5mg BID and diltiazem 240mg at bedtime HTN: Holding lisinopril and Lasix in the setting of MISTY and hypotension -- monitor BP Diabetes: Hold metformin; on atorvastatin 20mg- continue Accuchecks with sliding scale Pain management with Tylenol mild/Dilaudid IV Q6 PRN Diabetic diet DVT prophylaxis On Eliquis Code status full code Problem List: 1. Hypotension 2. Hypocalcemia 3. Foot ulcer, left 4. Lactic acidemia 5. Atrial fibrillation, chronic Pain Ratin Pain Location: both lower extrmities Pain Goal: Pain 4 or less Pain Plan: tylenol Dilaudid Tomorrow's Labs & Rationales: cbc to monitor white count bep to monitor electorlytes and Cr Lactic acid MICHAEL CHAIDEZ MD 11/01/16 1333: Attending MD Review Statement Attending Statement Attending MD Statement: examined this patient, discuss w/resident/PA/HEATING ELEMENT BUILDER, agreed w/resident/PA/HEATING ELEMENT BUILDER, reviewed EMR data (avail), discussed with nursing Attending Assessment/Plan: 80-year-old female multiple medical problems including A. fib on Eliquis, diabetes with diabetic neuropathy, history of chronic heart failure unclear what type and this masslike lesion in the abdominal area questionable hernia. She is here with hypotension, lactic acidosis in the setting of what appears to be an infection with a cellulitis of the lower extremity and ordered a UTI. We are hydrating her, correcting her hypokalemia hypomagnesemia which we think is all secondary to increased dose of diuretic. Her MISTY is already better with her creatinine going from 2.1-1.7. Will need all records tomorrow including reports of previous echo. Continue IV Ancef for now and watch pressure closely. Continue her Eliquis and diabetic coverage. Of note her chest x-ray shows an opacity in the left lung base that will need further follow-up
--- NOTE | 2016-11-01 11:44 | NUR ---
0055 ADMITTED FROM ER VIA STRETCHER TO ROOM 229 BED 1.ACCOMPANIED BY DAUGHTER. 80 YRS OLD WF FROM HOME.A&OX3 BUT RUBY.ASSISTED TO BED & MADE COMFORTABLE. DENIES PAIN.NS FROM ER INFUSING WELL IN RFA.HL IN LW.F/C DRAINING LIGHT ALFREDITO URINE.BLE ELEVATED UO ON 2 PILLOWS.DSGS TO TOP OF LT.FOOT & LEFT HEEL.ON RA.NO RESP DISTRESS NOTED.ORIENTED TO ROOM & SURROUNDINGS.CALL DOWNING IN REACH.
[2016-11-01 13:44] VITALS: BP 100/70
--- NOTE | 2016-11-01 16:34 | NUR ---
CALLED TO ROOM BY PT, C/O PAIN 12/08 TO POPLITEAL AREA OF RIGHT LEG, BEHIND THE KNEE "IT FEELS LIKE A LUMP HERE THAT I JUST NOTICED, AND IT HURTS REALLY BAD", THIS NURSE ABLE TO PALPATE HARDENED AREA/ LUMP TO AREA, C/O BILATERAL CALF PAIN STATES THAT "IT FEELS LIKE ITS GETTING WORSE" CALL PLACED TO BUYING INTERN AT THIS TIME TO MAKE AWARE. UNABLE TO PALPATE PULSES TO BILATERAL LE. DOPPLER PULSES FOUND, PEDAL, POPLITAL AND POST TIB. DENIES CP, DENIES SOB, LSCTA. AWAITING BUYING INTERN TO JOE PT.
--- NOTE | 2016-11-01 17:06 | NUR ---
LEONARD AND PROJECT COACH IN TO SEE PT AT THIS TIME. STATED THAT PAIN TO PTS CALVES AND RIGHT POPLITEAL AREA SEEMS TO BE MUSCULAR AND US IS NOT NEEDED AT THIS TIME. MEDICATED PT WITH PO VICODIN PER REQUEST OF PT FOR PAIN -11/07.
[2016-11-01 21:00] VITALS: BP 74/40
--- NOTE | 2016-11-01 21:08 | Event Note ---
Event Note Event Note: S: Informed that the patient was looking pale, her last BP was 74/40. B: A/R. Spoke with the nurse. The video production intern and I had seen Ms Gonzalez fifteen minutes prior, she was alert and oriented complaining of pain and discomfort in LLE. She continues to get electrolyte replacements. We will bolus the patient 1000ml at 500 ml/hr. I have asked the nurse to keep a close eye on the patient. No previous ECHO report avialable. Will conitinue to monitor. 9.56. PM .Re Visited the patient. She is AOx3. Feels overwhelmed with the amount of times she has been stuck for blood. Bolus continues to run. BP: 82/50. H/H Stable. Urine output is improved over the last hour. Nurse concerned that Calcium Gluconate might make the patient additionally hypotensive. Will conitnue to monitor. .20. Visited patient at bedside she is asleep. Inform nurse that we can run the calcium gluconate at a decreased rate. Patient has been getting magnesium boluses. Patient will be continued on maintenance fluids running at 100 mL per hour. We will continue to monitor pressure. A.m. cortisol has been ordered in addition to the above. Attending made aware.
--- NOTE | 2016-11-01 21:15 | NUR ---
PT APPEARS PALE AT THIS TIME, BP 74/40, DENIES DIZZINESS, HR 80, 94% ON RA, RR 16 CALL TO ABBEY AT THIS TIME, AT BEDSIDE, ORDER FOR IV NS BOLUS, STAT H/H. LAST CA 5.4, CA GLUCONATE INFUSING, PO CA GIVEN, LAST MAG 1.3, 2 IV BOLUSES ORDERED, PO MAG GIVEN PER EMAR. LAST LACTIC 4.5 REDRAW ORDERED, IVF INCREASED TO 100 ML/HR FROM 75.
[2016-11-01 21:30] VITALS: BP 82/50
--- NOTE | 2016-11-01 21:43 | NUR ---
RECHECK BP 82/50, HR 86, 96% ON RA, CONTINUES TO BE A/O X 3, DENIES DIZZINESS, IVF NS BOLUS CONTINUES TO INFUSE. CONTINES TO DENY CP/ SOB.
[2016-11-01 21:47] LABS: ABSOLUTE BASOPHIL COUNT 0 /CUMM (0.0-0.2); ABSOLUTE EOSINOPHIL COUNT 0 /CUMM (0.0-0.7); ABSOLUTE GRANULOCYTE CT 6.2 /CUMM (1.4-6.5); ABSOLUTE LYMPH COUNT 1.6 /CUMM (1.2-3.4); ABSOLUTE MONOCYTE COUNT 0.6 /CUMM (0.10-0.60); BASOPHIL % 0.4 % (0.0-2.0); EOSINOPHIL % 0.6 % (0-5); GRANULOCYTE % 73.1 % (42.2-75.2); HEMATOCRIT 27.4 % (37-47); MEAN CORPUSCULAR HGB 32.3 PG (27.0-31.0); MEAN CORPUSCULAR HGB CONC 32.7 G/DL (33.0-37.0); MEAN CORPUSCULAR VOLUME 98.8 FL (81.0-99.0); MEAN PLATELET VOLUME 7.8 FL (7.4-10.4); PLATELET COUNT 195 /CUMM (130-400); RBC DISTRIBUTION WIDTH 14.6 % (11.5-14.5); RED BLOOD CELL CT 2.77 /CUMM (4.20-5.40); WHITE BLOOD CELL COUNT 8.4 /CUMM (4.8-10.8)
--- NOTE | 2016-11-01 22:23 | Event Note ---
Event Note Event Note: S: Nurse paged and reported patient is complaining of increased calf pain and possible lump behind knee which was not previously felt by pt. Nurse reported she was unable to feel pulses and would do doppler of pulses. B: 80 year old female with PMH of Afib on eliquis, DM with neuropathy, CHF with no recent cardiology follow up currently admitted for hypotension and L foot cellulitis. Pt stated she has increased pain in both her legs. States she feels like there is a lump under her right knee. Pt denies SOB, chest pain, fever, chills, n/v. On examination: lower extremities were symmetrical with no edema, mild erythema and tenderness. Pt's knee was examined. No mass was felt under the knee. Nurse completed dopplers and was able to locate popliteal, tibial, and dorsal pulses. A/P: Pt is an 80 y/o female with PMH of Afib on eliquis present with hypotension and cellulitis. Cellulitis ruled out DVT: Pt mistook a tendon under her right knee as lump. Pulses were present and there was no increased or asymmetric swelling of R leg. No signs of symptoms indicative of DVT or PE at this time. Pt is on DVT prophylaixis. - recommend continuing eliquis - no further workup necessary at this time
[2016-11-01 22:52] VITALS: BP 90/50
--- NOTE | 2016-11-01 22:57 | NUR ---
LATE ENTRY: CALL PLACED TO BLEACHER S[employer] PULP PAGER [phone] REGARDING ORDER FOR IV CALCIUM GLUCONATE ? SIDE EFFECT OF CAUSING HYPOTENSION, PT'S BP HAS BEEN LOW- SEE PREVIOUS RECORDINGS, AWAITING RESPONSE FROM ABBEY AT THIS TIME.
--- NOTE | 2016-11-01 23:02 | NUR ---
SPOKE WITH ABBEY AT THIS TIME PLAN IS TO HOLD IV CALCIUM GLUCONATE R/T POTENTIAL SIDE EFFECT OF HYPOTENSION. WILL REPORT OFF TO ONCOMING NURSE REGARDING THIS.
[2016-11-02] VITALS (8 sets, daily range): BP systolic 88–106; BP diastolic 60
--- NOTE | 2016-11-02 07:25 | PN- Housestaff ---
LUBA LÓPEZ,SANTIAGO 11/02/16 0722: Subjective Follow-up For: Left foot cellulitis and hypotension Subjective: Last night, she was hypotensive to 74/40 (see event note). She was receiving calcium gluconate, and the nurse thought this made her hypotensive. She received 1L NS bolus and her BP went up to 94/60. She also had calf pain last night and felt a lump. On exam, she had pulses and the lump was a tendon but a doppler was placed which we will follow up (see event note). This morning, she is feeling ok , still having pain in the left foot. Also, her patel is uncomfortable. Review of Systems Constitutional: Denies: no symptoms. Cardiovascular: Denies: no symptoms. Respiratory: Denies: no symptoms. Gastrointestinal: Denies: no symptoms. Genitourinary: Denies: no symptoms. Musculoskeletal: Reports: see HPI. Objective Last 24 Hrs of Vital Signs/I&O Vital Signs Date Time Temp Pulse Resp B/P B/P Pulse O2 O2 Flow FiO2 Mean Ox Delivery Rate 11/02 0950 97.8 98 18 88/60 90 Room Air 07/ 0621 98.4 100 16 94/60 98 Room Air 07/05 0425 94/60 07/05 0317 90/60 07/05 0047 88 104/60 /04 2252 100 18 90/50 97 07/04 2130 86 16 82/50 96 07/04 2100 80 16 74/40 94 Intake & Output 07/05 1600 07/05 0800 07/05 0000 Intake Total 1000 1600 Output Total 1200 451 Balance 1000 -1200 1149 Intake, IV 400 1600 Intake, Oral 600 Output, Stool 1 Output, Urine 1200 450 Patient 171 lb Weight Weight Chair scale Measurement Method Physical Exam General Appearance: Alert, Oriented X3, Cooperative, No Acute Distress Cardiovascular: A fib. Lungs: Clear to Auscultation Abdomen: Soft, No Tenderness, No Masses Extremities: Swelling and erythema of left foot. Current Medications: Current Medications Sig/Abundio Start time Last Medication Dose Route Stop Time Status Admin Acetaminophen 650 MG Q6P PRN 10/310 AC 11/02 PO 1435 Acetaminophen/ 1 TAB Q6P PRN 10/31 2130 AC / Hydrocodone Bitart PO 1655 Ampicillin Sodium/ 3,000 MG Q12H 11/02 1200 AC Sulbactam Sodium IV Sodium Chloride 100 ML Ampicillin Sodium/ 3,000 MG Q12 11/02 0700 DC 11/02 Sulbactam Sodium IV 1126 Sodium Chloride 100 ML Ampicillin Sodium/ 3,000 MG Q6 11/02 0615 DC Sulbactam Sodium IV Sodium Chloride 100 ML Apixaban 2.5 MG BID 11/01 0130 AC 11/02 PO 1126 Atorvastatin Calcium 20 MG 1700 11/01 1700 AC 11/01 PO 1614 Calcitriol 0.25 MCG DAILY 11/02 1500 AC PO Calcium 600 MG BID 11/01 1000 DC 11/01 PO 11/01 2201 2054 Calcium Carbonate 1,250 MG Q8 11/02 1452 AC PO Calcium Gluconate 1 GM ONCE ONE 11/02 0115 DC 11/02 Sodium Chloride 100 ML IV 11/02 0214 0213 Calcium Gluconate 1 GM ONCE ONE 11/01 1900 DC Sodium Chloride 100 ML IV 11/01 1959 Cefazolin Sodium 1,000 MG IQ8 11/01 0000 DC 11/02 IV 0022 Diltiazem HCl 240 MG AT BEDTIME 11/01 2200 PO Ergocalciferol 50,000 IU ONCE A WEEK 11/02 1000 AC 11/02 PO 12/21 1001 1126 Hydromorphone HCl 1 MG Q6P PRN 10/31 2130 AC 11/01 IV 1913 Insulin Aspart 0 TIDAC 11/01 0800 AC 11/02 SC 1150 Magnesium Chloride 64 MG BID 11/01 1000 DC 11/01 PO 11/01 2200 205 Magnesium Sulfate 1 GM Q2H 11/01 1900 DC 11/02 Dextrose/Water 100 ML IV 11/01 2259 0022 Omeprazole 40 MG DAILY AC 11/01 0700 AC 11/01 PO 0552 Sodium Chloride 1,000 ML BOLUS ONE 11/01 2115 DC 11/01 IV 11/01 2314 2107 Sodium Chloride 1,000 ML Q13H 10/31 2245 AC 11/02 IV 1309 Last 24 Hrs of Lab/Carlos Results Last 24 Hrs of Labs/Mics: Laboratory Tests 11/02/16 0937: Hemoglobin A1c 5.0 11/02/16 0937: Anion Gap 10, Estimated GFR 36 L, BUN/Creatinine Ratio 11.4, Calcium 6.2 L, Magnesium 1.6, Cortisol AM Sample 20.7, CBC w Diff NO MAN DIFF REQ, RBC 2.68 L, MCV 97.0, MCH 32.3 H, RDW 14.3, MPV 7.7, Gran % 83.8 H, Lymphocytes % 11.7 L, Monocytes % 4.0, Eosinophils % 0.3, Basophils % 0.2, Absolute Granulocytes 6.0, Absolute Lymphocytes 0.8 L, Absolute Monocytes 0.3, Absolute Eosinophils 0, Absolute Basophils 0, PUBS MCHC 33.3 11/01/16 2130: Lactic Acid 2.6 H 11/01/16 2130: Anion Gap 10, Estimated GFR 31 L, BUN/Creatinine Ratio 11.3, Calcium 5.6 *L, Magnesium 1.3 L, TSH 3.400, Free T4 1.51, CBC w Diff NO MAN DIFF REQ, RBC 2.77 L, MCV 98.8, MCH 32.3 H, RDW 14.6 H, MPV 7.8, Gran % 73.1, Lymphocytes % 19.3 L, Monocytes % 6.6, Eosinophils % 0.6, Basophils % 0.4, Absolute Granulocytes 6.2, Absolute Lymphocytes 1.6, Absolute Monocytes 0.6, Absolute Eosinophils 0, Absolute Basophils 0, PUBS MCHC 32.7 L 11/01/16 1735: Anion Gap 11, Estimated GFR 31 L, BUN/Creatinine Ratio 10.6, Lactic Acid 4.5 H , Calcium 5.7 *L, Magnesium 1.3 L 11/01/16 1600: Calcium Cancelled Assessment/Plan Assessment: 80-year-old female with history of 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 Labs at admission significant for WBC count 8.6, H&H 9.4/28.7, platelet count 229, Na 139, K 4.4, BUN/Cr 22, Cr 2.1, lactic acid 8.7 --> 6.6, calcium 6.2 corrected 7.0, phosphorus 4.7, magnesium 0.6, proBNP 3460, albumin 2.5. Recent lower extremity Doppler on 10/13/16 showed no evidence of DVT. X-ray showed cardiomegaly with intermediate patchy opacity of left lung base. EKG A.Fib with no acute ST-T wave changes. She is here with left lower extremity celllulitis and electrolyte abrnomalities. She has been intermittently hypotensive to 74/40 last night, responding to fluid boluses. 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 Recently increased lasix dose, but likely not the cause of her issues. This is probably caused by a vitamin D deficiency -Replete vitamin D [id number] Qweekly -Replete calcium with Ca gluconate -Endocrine, nephrology consult #Hypotension -Give 500mL NS bolus now -Monitor BP MISTY. Cr 2.1 at admission --> 1.7 responding to fluids indicating prerenal. We will continue fluid therapy. -D/c patel -Monitor In's and Out's -Gentle hydration -Holding lasix and lisinopril Chronic and stable conditions Atrial fibrillation: continue eliquis 2.5mg BID and diltiazem 240mg at bedtime HTN: Holding lisinopril and Lasix in the setting of MISTY and hypotension -- monitor BP Diabetes: Hold metformin; on atorvastatin 20mg- continue Accuchecks with sliding scale Pain management with Tylenol mild/Dilaudid IV Q6 PRN Diabetic diet DVT prophylaxis On Eliquis Code status full code Problem List: 1. Hypocalcemia 2. Hypotension 3. Cellulitis Pain Ratin Pain Location: Left foot. Pain Goal: Remain pain free Pain Plan: dilaudid Tomorrow's Labs & Rationales: CBC, BEP, caclium, LAREGLA MD,ZAHRAA 11/02/16 1316: Attending MD Review Statement Attending Statement Attending MD Statement: examined this patient, discuss w/resident/PA/ACUTE CARE SURGEON, agreed w/resident/PA/ACUTE CARE SURGEON, reviewed EMR data (avail) Attending Assessment/Plan: 80F PMH Afib on eliquis, T2DM w/ neuropathy, HTN, B12 def anemia, CHF admitted initially for LLE cellulitis, has had persistent hypotension since admission with metabolic derangement including hypocalcemia, hypomagnesemia, lactic acidosis, MISTY. Patient reports she is not fatigued and weak and overall feels well. All she cares about is if we are going to fix her foot. 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 Pituitary function appears intact. Morning cortisol levels have been normal, however the question of whether the patient is experiencing adrenal insufficiency and thsi is the cause for hypotension is still at hand. Renal function is steadily improving, and creatinine is 1.4 today. AFVSS NAD Anicteric, MMM Supple RRR no m/r/g CTAB Soft, NTND Left first toe erythema and swelling Pulses intact A&Ox3 no focal deficits 1. LLE cellulitis 2. Persistent hypotension 3. Hypocalcemia 4. Secondary hyperparathyroidism 5. Vitamin D deficiency 6. Hypomagnesemia 7. MISTY 8. Lactic acidosis Plan - Continue on general medicine - May give 500mL normal saline bolus and monitor BP - Replete calcium with calcium gluconate - Continue Ergocalciferol, may require Vitamin D3 infusion - Obtain endocrine, nephrology, and podiatry consults - Magnesium repletion with Slo-Mag - Continue Unasyn - Follow cultures - Monitor urine output - Continue home medications - DVT PPx - Trend lactate every 4 hours until normal - Daily CMP, Mg, Phos, CBC
--- NOTE | 2016-11-02 07:33 | RADIOLOGY REPORT ---
EXAMINATION: XR FOOT, LEFT CLINICAL INFORMATION: Osteomyelitis. COMPARISON: None TECHNIQUE: AP, lateral, and oblique views of the left foot. FINDINGS: There is no definite fracture. No dislocation. The soft tissue surrounding the first digit is swollen. There is no cutaneous ulceration identified. There are vascular calcifications. IMPRESSION: No fracture or dislocation. Soft tissue surrounding the first digit is swollen. No definite cutaneous ulcer is seen. Vascular calcifications. If there is continued concern for osteomyelitis of the foot MRI examination is recommended.
--- NOTE | 2016-11-02 07:57 | NUR ---
UPON COMING ONTO SHIFT IT WAS REPORTED THAT MY PATIENT IN WAS ORDERED CALCIUM 1MG IV. IT WAS HELD BECAUSE HER PRESSURE WAS 70/40. SHE WAS GIVIEN NS AT 100 ML/HR AND AT 0200 HER PRESSURE WAS 104/60. DR ABBEY ISLAS WAS PAGED AND 1GM CALCIUM GLUCONATE IN 110 ML IV PIGGYBACK WAS ORDERED AND TO RUN IN SLOWLY AT 60 ML/HR. I WAS TO RECHECK HER PRESSURE IN ONE HOUR. AT 0315 HER PRESSURE WAS CHECKED AND WAS 90/60. DR ABBEY ISLAS WAS PAGED AND HE SAID TO RUN NS AT 100 ML/HR FOR ONE HOUR AND RECHECK PRESSURE. AT 0415 PRESSURE WAS CHECKED AND WAS 94/60. DR ABBEY ISLAS INSTRUCTED ME TO RUN REST OF CALCIUM GLUCONATE OUT AT 60 ML/HR AND THEN RUN NS AT 100 ML/HR AND TO CONSTANTLY CHECK ON HER WHILE CALCIUM WAS RUNNING. CALCIUM FINISHED AND NS RESUMED AT 100 ML/HR. PATIENT WAS ALERT AND ORIENTED AND PRESSURE AT 0600 WAS 90/60. WAS NOTIFIED. WILL CONTINUE TO MONITOR.
--- NOTE | 2016-11-02 09:11 | NUR ---
INTO SEE PATIENT DURING AM REPORT, [facility] HAD JUST CHANGED DRESSING, THEY ARE CDI, NO DRAINAGE NOTED, PATIENT WITH C/O DISCOMFORT ON BOTTOM, ROLLED TO SIDE TO INSPECT SKIN, COCCYX FOUND TO BE NONBLANCHABLE RED, WITH A BOOGY FEEL WHEN PUSHED, PATIENT WITH PAIN WHEN TOUCHED IN THIS AREA, [facility] RN WAS NOTIFIED AND WILL SEE PATIENT COCCYX TO ASSIST IN TREATMENT PLAN, SPECIALTY MATTRESS ORDERED AT THIS TIME, REFUSING ORTHOSTATIC B/P'S CLARIFYING ORDER WITH MD IT IS Q SHIFT, AND HAS BEEN NEGATIVE, B/P IS LOW WILL RECHECK AND MONITOR APPROPRIATE, MANISHA IS BOTHERING PATIENT C/O PAIN AND BURNING, DISCUSSED WITH MD CONTINUED NEED, WILL FOLLOW ORDERS. NEEDS IN REACH, SAFETY MAINTAINED.
[2016-11-02 09:50] LABS: ABSOLUTE BASOPHIL COUNT 0 /CUMM (0.0-0.2); ABSOLUTE EOSINOPHIL COUNT 0 /CUMM (0.0-0.7); ABSOLUTE LYMPH COUNT 0.8 /CUMM (1.2-3.4); ABSOLUTE MONOCYTE COUNT 0.3 /CUMM (0.10-0.60); BASOPHIL % 0.2 % (0.0-2.0); EOSINOPHIL % 0.3 % (0-5); MEAN CORPUSCULAR HGB 32.3 PG (27.0-31.0); MEAN CORPUSCULAR HGB CONC 33.3 G/DL (33.0-37.0); MEAN PLATELET VOLUME 7.7 FL (7.4-10.4); PLATELET COUNT 203 /CUMM (130-400); RBC DISTRIBUTION WIDTH 14.3 % (11.5-14.5); RED BLOOD CELL CT 2.68 /CUMM (4.20-5.40); WHITE BLOOD CELL COUNT 7.2 /CUMM (4.8-10.8)
--- NOTE | 2016-11-02 10:12 | NUR ---
WOUND CARE: REQUESTED BY NURSING STAFF TO EVAL PT FOR SKIN ALTERATIONS PRESENT ON ADMISSION TO LEFT HEEL AND FOOT - HX OBTAINED FROM PT AND CHART REVIEW - PT STATED DM WITH STABLE GLUCOSE CONTROL AT HOME - MONOFILAMENT TEST ABNORMAL WITH MINIMAL RESPONSE TO SENSATION - C/O PAIN WITH PALPATION TO LEFT FOOT - UPON ASSESSMENT, PT IS NOTED WTIH MULTIPLE WOUNDS TO THE LEFT FOOT AND DIGITS FOLLOWS: ELFT DORSAL FOOT 3.5 X 2.7 CM DRY DESICATED FULL THCNKESS WOUND 100% YELLOW FILL NON DRNG AND 1.5 X 1.5 CM DRY CASTRO SCABBED AREA NON DRNG - PERIWOUND 1 CM ERYTHEMA - LEFT GREAT TOE AVULSION OF NAIL BED WITH DARK PINK HYPERGRANULAR FILL - SCANT SEROPURULENT DRNG - LEFT 4TH AND 2ND TOE NOTED WTIH DRIED SCABBED AREAS 0.8 X 0.8 CM AND 0.4 X 0.4 CM - LEFT HEEL EVOLVING DTI 3X5 CM WITH 0.5 X 0.4 CM SCABBED OPEN AREA AT PROXIMAL MARGIN NEAR ACHILLIES - + PALPABLE DORSALIS PEDIS PULSES RIGHT - UNABLE TO PALPATE DP LEFT FOOT - PT STATED SHE SEES [facility] AND LAST SEEN 3 WEEKS PRIOR- RIGHT LATERAL FOOT EDMOND GRADE 1 DFU 1 CM SCABBED AREA IMPRESSION: CELLULITIS LEFT FOOT - EDMOND GRADE 2 DFU LEFT DORSAL FOOT AND DIGITIS - PTS VASCULAR STATUS UNKNOWN AT THIS TIME, AND WOUNDS MAY BE COMPLICATED BY VASCULAR COMPONENT RECOMMEDNATION: CONSIDER XRAY (DONE TODAY) - CLEANSE LEFT FOOT WOUNDS WITH NS FB XEROFORM GAUZE AND KERLIX DAILY - PAINT TOE WOUNDS WITH BETADINE - MONITOR HEEL QS - OFFLOAD FOOT AT ALL TIMES - PLEASE CONSIDER PODIATRY AND VASCULAR CONSULT TO NOTE, PT HAS SKIN ALTERATION TO BUTTOCKS WELL - UNABLE TO EXAMINE AT THIS TIME - WILL REASSESS PT WAS UNAVAILABLE AT THIS TIME
--- NOTE | 2016-11-02 10:21 | NUR ---
patient b/p still 88 stystolic spoke with md team, no wish for additional fluids at this time, awaiting labs, will follow orders as appropriate.
[2016-11-02 10:47] LABS: GRANULOCYTE % 83.8 % (42.2-75.2)
--- NOTE | 2016-11-02 14:41 | NUR ---
DYER REMOVED AT 1440, DTV [id number].
--- NOTE | 2016-11-02 17:23 | Cons- Infect Disease ---
General Information and HPI Consulting Request Date of Consult: 11/02/16 Requested By: KELLY ARAUZ MD Reason for Consult: Cellulitis of the left leg Source of Information: patient History of Present Illness: This is an 80-year-old woman with a history of atrial fibrillation, on Eliquis, Diabetes, with a neuropathy, and CHF admitted on October 31 with a several week history of left foot pain, with a nonhealing ulcer over the dorsum of her foot, bilateral calf pain and increased lower extremity edema, for which her dose of Lasix had been doubled, associated with fatigue, exertional dyspnea and intermittent lightheadedness, with no associated fevers or chills. On admission she was afebrile. Blood pressure was 85/50. Laboratory data revealed a white blood cell count of 9000, BUN/creatinine 22 and 2.1, CO2 15, lactic acid 8.7, with normal liver enzymes. Urinalysis 3-5 RBCs/greater than 75 WBCs. Chest x- ray revealed cardiomegaly with a patchy opacity at the left base. She was given a dose of Ceftriaxone in the emergency room and then placed on Cefazolin. She was given IV fluids with blood pressure on the evening of November 01 down to 74/40 but with some improvement overnight. This morning she was changed to Unasyn. She has remained afebrile and white blood cell count has remained normal since admission. At present she complains of pain in both feet and both calves. Allergies/Medications Allergies: Coded Allergies: No Known Allergies (10/31/16) Home Med List: Apixaban (Eliquis) 2.5 MG TABLET 1 TAB PO BID BLOOD THINNER (Reported) Diltiazem HCl (Cardizem Cd) 240 MG CAP.ER.24H 1 CAP PO QHS HEART/BP (Reported ) Furosemide 20 MG TABLET 1 TAB PO EOD DIURETIC (Reported) Furosemide (Lasix) 40 MG TABLET 1 TAB PO AD DIURETIC (Reported) Levofloxacin (Unknown Strength) TABLET (Unknown Dose) UNKNOWN (Reported) Metformin HCl 500 MG TABLET 1 TAB PO QAM DM (Reported) Metformin HCl 500 MG TABLET 2 TAB PO QPM DM (Reported) Multivitamin (Multi-Day Vitamins) 1 EACH TABLET 1 TAB PO DAILY SUPPLEMENT ( Reported) Omeprazole 40 MG CAPSULE.DR 1 CAP PO DAILY AC GI (Reported) Oxycodone HCl/Acetaminophen (Oxycodone-Acetaminophen 5-325) 5 MG-325 MG TABLET 1 TAB PO 4XDAILY PRN PAIN (Reported) Ramipril 10 MG CAPSULE 1 CAP PO QAM BP (Reported) Simvastatin (Zocor*) 20 MG TABLET 1 TAB PO QPM CHOLESTEROL (Reported) Past History Travel History Traveled to [place] past 21 day No Medical History Blood Transfusion Hx: No Neurological: peripheral neuropathy EENT: hearing loss Cardiovascular: AFIB Respiratory: NONE Gastrointestinal: constipation Hepatic: NONE Renal: NONE Musculoskeletal: NONE Psychiatric: NONE Endocrine: diabetes Blood Disorders: anemia Cancer(s): NONE CORRAL BOSS/Reproductive: NONE History of MRSA: No History of VRE: No History of CDIFF: No Isolation History: Standard Surgical History Surgical History: none Psychosocial History Where Do You Live? Home Services at Home: None Smoking Status: Never Smoked ETOH Use: denies use Illicit Drug Use: denies illicit drug use Review of Systems Review of Systems All Other Systems: Reviewed and Negative Exam & Diagnostic Data Last 24 Hrs of Vital Signs/I&O Vital Signs Date Time Temp Pulse Resp B/P B/P Pulse O2 O2 Flow FiO2 Mean Ox Delivery Rate / 1441 97.8 99 18 100/60 99 Room Air 07/05 0950 97.8 98 18 88/60 90 Room Air 07/05 0621 98.4 100 16 94/60 98 Room Air 07/05 0425 94/60 07/05 0317 90/60 07/05 0047 88 104/60 07/04 2252 100 18 90/50 97 07/04 2130 86 16 82/50 96 07/04 2100 80 16 74/40 94 Intake & Output 07/05 1600 07/05 0800 07/05 0000 Intake Total 1000 1600 Output Total 1200 451 Balance 1000 -1200 1149 Intake, IV 400 1600 Intake, Oral 600 Output, Stool 1 Output, Urine 1200 450 Patient 171 lb Weight Weight Chair scale Measurement Method Physical Exam Other Physical Findings: She is awake and alert in no acute distress. She is afebrile. Skin reveals no rash. HEENT exam is negative. Neck is supple with no adenopathy. Lungs are clear. Heart irregular rhythm with a 2/6 systolic ejection murmur. Abdomen is soft, with an umbilical hernia in the midline, nontender with positive bowel sounds. Back no CVA tenderness; Stage 2 decubitus over the coccyx. Extremities both feet cool with decreased pulses; ulcer on the dorsal aspect of her left foot with no surrounding erythema; ulcer on the lateral aspect of the right foot with no surrounding erythema; tenderness over both calves, right greater than left, with no cyanosis, clubbing or edema. Neuro neuropathy both lower extremities. Last 24 Hours of Lab Results: Laboratory Tests 11/02 11/02 11/01 0937 0937 2130 Chemistry Sodium (137 - 145 mmol/L) 138 Potassium (3.5 - 5.1 mmol/L) 4.2 Chloride (98 - 107 mmol/L) 111 H Carbon Dioxide (22 - 30 mmol/L) 17 L Anion Gap (5 - 16) 10 BUN (7 - 17 mg/dL) 16 Creatinine (0.5 - 1.0 mg/dL) 1.4 H Estimated GFR (>60 ml/min) 36 L BUN/Creatinine Ratio (7 - 25 %) 11.4 Hemoglobin A1c (4.2 - 5.8 %) 5.0 Lactic Acid (0.7 - 2.1 mmol/L) 2.6 H Calcium (8.4 - 10.2 mg/dL) 6.2 L Magnesium (1.6 - 2.3 mg/dL) 1.6 Cortisol AM Sample (4.46 - 22.7 ug/dL) 20.7 Hematology CBC w Diff NO MAN DIFF REQ WBC (4.8 - 10.8 /CUMM) 7.2 RBC (4.20 - 5.40 /CUMM) 2.68 L Hgb (12.0 - 16.0 G/DL) 8.6 L Hct (37 - 47 %) 26.0 L MCV (81.0 - 99.0 FL) 97.0 MCH (27.0 - 31.0 PG) 32.3 H RDW (11.5 - 14.5 %) 14.3 Plt Count (130 - 400 /CUMM) 203 MPV (7.4 - 10.4 FL) 7.7 Gran % (42.2 - 75.2 %) 83.8 H Lymphocytes % (20.5 - 51.1 %) 11.7 L Monocytes % (1.7 - 9.3 %) 4.0 Eosinophils % (0 - 5 %) 0.3 Basophils % (0.0 - 2.0 %) 0.2 Absolute Granulocytes (1.4 - 6.5 /CUMM) 6.0 Absolute Lymphocytes (1.2 - 3.4 /CUMM) 0.8 L Absolute Monocytes (0.10 - 0.60 /CUMM) 0.3 Absolute Eosinophils (0.0 - 0.7 /CUMM) 0 Absolute Basophils (0.0 - 0.2 /CUMM) 0 PUBS MCHC (33.0 - 37.0 G/DL) 33.3 0711/01 2130 1735 Chemistry Sodium (137 - 145 mmol/L) 138 138 Potassium (3.5 - 5.1 mmol/L) 3.8 3.7 Chloride (98 - 107 mmol/L) 111 H 110 H Carbon Dioxide (22 - 30 mmol/L) 17 L 17 L Anion Gap (5 - 16) 10 11 BUN (7 - 17 mg/dL) 18 H 17 Creatinine (0.5 - 1.0 mg/dL) 1.6 H 1.6 H Estimated GFR (>60 ml/min) 31 L 31 L BUN/Creatinine Ratio (7 - 25 %) 11.3 10.6 Lactic Acid (0.7 - 2.1 mmol/L) 4.5 H Calcium (8.4 - 10.2 mg/dL) 5.6 *L 5.7 *L Magnesium (1.6 - 2.3 mg/dL) 1.3 L 1.3 L TSH (0.270 - 4.200 uIU/mL) 3.400 Free T4 (0.85 - 1.93 ng/dL) 1.51 Hematology CBC w Diff NO MAN DIFF REQ WBC (4.8 - 10.8 /CUMM) 8.4 RBC (4.20 - 5.40 /CUMM) 2.77 L Hgb (12.0 - 16.0 G/DL) 8.9 L Hct (37 - 47 %) 27.4 L MCV (81.0 - 99.0 FL) 98.8 MCH (27.0 - 31.0 PG) 32.3 H RDW (11.5 - 14.5 %) 14.6 H Plt Count (130 - 400 /CUMM) 195 MPV (7.4 - 10.4 FL) 7.8 Gran % (42.2 - 75.2 %) 73.1 Lymphocytes % (20.5 - 51.1 %) 19.3 L Monocytes % (1.7 - 9.3 %) 6.6 Eosinophils % (0 - 5 %) 0.6 Basophils % (0.0 - 2.0 %) 0.4 Absolute Granulocytes (1.4 - 6.5 /CUMM) 6.2 Absolute Lymphocytes (1.2 - 3.4 /CUMM) 1.6 Absolute Monocytes (0.10 - 0.60 /CUMM) 0.6 Absolute Eosinophils (0.0 - 0.7 /CUMM) 0 Absolute Basophils (0.0 - 0.2 /CUMM) 0 PUBS MCHC (33.0 - 37.0 G/DL) 32.7 L Last 24 Hours of Carlos Results: Blood cultures October 31 negative Urine culture November 01 negative Diagnostic Data Recent Imaging Findings: Chest x-ray October 31 reveals cardiomegaly with indeterminate patchy opacity at the left lung base X-ray of the left foot November 02 revealed soft tissue swelling around the first digit with no evidence for osteomyelitis Assessment/Plan Assessment/Plan Impression: This is an 80-year-old woman with a history of A. fib, CHF and diabetes, with neuropathy, admitted on October 31 with a several week history of left foot pain and bilateral lower extremity pain, found on admission to be hypotensive with acute renal failure, likely related to the increased dose of Lasix, with no fever or leukocytosis, treated with antibiotics for a cellulitis. I do not see any evidence for cellulitis, particularly with her normal temperatures and white blood cell count and, therefore, do not see any role for antibiotics at this time. She appears to have poor perfusion of both feet and I suspect that most of her pain may be ischemic in nature, though she may also have an element of neuropathic pain. She does have ulcerations on the dorsal aspect of her left foot and lateral aspect of her right foot, of unclear duration, and the possibility of underlying osteomyelitis could be considered, though do not suspect this. She is to be evaluated by Podiatry and will await their evaluation. Of note recent Dopplers of the lower extremities obtained 2 weeks prior to admission were negative for any DVT. Suggestion: 1. Vascular surgery evaluation 2. Await Podiatry evaluation 3. X-ray of the right foot 4. Discontinue Unasyn and follow off antibiotics Consult Acknowledgment - Thank you for your consult request.
--- NOTE | 2016-11-02 20:25 | Cons- Endocrinology ---
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 On admission, BP was in the 80s systolic. Random cortisol was checked and it was 20.7. However, blood work showed calcium 5.4, albumin 2.5 and PTH 184.6, 25 OH vitamin D 10.9, Mg 1.1 and Phos 3.7. She was treated with vitamin d2 50,000 units once a week, calcium gluconate iv supplement. Her calcium level has been improving. Repeat calcium was 6.2 this morning. Patient complains of having muscle cramps on her legs. Allergies/Medications Allergies: Coded Allergies: No Known Allergies (10/31/16) Home Med List: Apixaban (Eliquis) 2.5 MG TABLET 1 TAB PO BID BLOOD THINNER (Reported) Diltiazem HCl (Cardizem Cd) 240 MG CAP.ER.24H 1 CAP PO QHS HEART/BP (Reported ) Furosemide 20 MG TABLET 1 TAB PO EOD DIURETIC (Reported) Furosemide (Lasix) 40 MG TABLET 1 TAB PO AD DIURETIC (Reported) Levofloxacin (Unknown Strength) TABLET (Unknown Dose) UNKNOWN (Reported) Metformin HCl 500 MG TABLET 1 TAB PO QAM DM (Reported) Metformin HCl 500 MG TABLET 2 TAB PO QPM DM (Reported) Multivitamin (Multi-Day Vitamins) 1 EACH TABLET 1 TAB PO DAILY SUPPLEMENT ( Reported) Omeprazole 40 MG CAPSULE.DR 1 CAP PO DAILY AC GI (Reported) Oxycodone HCl/Acetaminophen (Oxycodone-Acetaminophen 5-325) 5 MG-325 MG TABLET 1 TAB PO 4XDAILY PRN PAIN (Reported) Ramipril 10 MG CAPSULE 1 CAP PO QAM BP (Reported) Simvastatin (Zocor*) 20 MG TABLET 1 TAB PO QPM CHOLESTEROL (Reported) Review of Systems Review of Systems Constitutional: Reports: see HPI. Cardiovascular: Denies: chest pain. Respiratory: Denies: short of breath. GI: Denies: abdominal pain. Genitourinary: Denies: dysuria. Musculoskeletal: Reports: muscle pain (muscle cramps). Hematologic/Endocrine: Reports: see HPI. 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 Home Services at Home: None Smoking Status: Never Smoked ETOH Use: denies use Illicit Drug Use: denies illicit drug use Exam & Diagnostic Data Last 24 Hrs of Vital Signs/I&O Vital Signs Date Time Temp Pulse Resp B/P B/P Pulse O2 O2 Flow FiO2 Mean Ox Delivery Rate 11/02 1441 97.8 99 18 100/60 99 Room Air 07/05 0950 97.8 98 18 88/60 90 Room Air 07/05 0621 98.4 100 16 94/60 98 Room Air 07/05 0425 94/60 07/05 0317 90/60 07/05 0047 88 104/60 07/04 2252 100 18 90/50 97 07/04 2130 86 16 82/50 96 07/04 2100 80 16 74/40 94 Intake & Output 07/05 1600 07/05 0800 07/05 0000 Intake Total 1000 1600 Output Total 1200 451 Balance 1000 -1200 1149 Intake, IV 400 1600 Intake, Oral 600 Output, Stool 1 Output, Urine 1200 450 Patient 171 lb Weight Weight Chair scale Measurement Method Assessment/Plan Assessment/Plan 80 year old female with PMH of Afib on eliquis, 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 Her BP has improved. Hypocalcemia/ vitamin D deficiency/ secondary hyperparathyroidism: 1. continue vitamin d2 50,000 units once a week 2. start calcitriol 0.25 mcg daily 3. start calcium oral supplement-- calcium carbonate 1250 mg ( elemental calcium 500 mg) x 3 times a day 4. monitor calcium, albumin, Mg and phos tomorrow. will follow. Consult Acknowledgment - Thank you for your consult request.
[2016-11-03 06:36] VITALS: BP 98/60
--- NOTE | 2016-11-03 08:42 | PN- Housestaff ---
LUBA LÓPEZ,SANTIAGO 11/03/16 0840: Subjective Follow-up For: Left foot pain, secondary hyperparathyroidism Subjective: She is not feeling well today. She has a lot of pain, 9/10 in her left foot/ ankle. She describes it as throbbing. She is very upset about the level of pain she has, it keeps her from sleeping and doing things. She was also very cold and says she "can't get warm." Her right foot is not currently painful, but occasionally she does have throbbing of the right big toe. She is asking for an answer for her pain. Review of Systems Constitutional: Reports: chills, malaise. Cardiovascular: Denies: no symptoms. Respiratory: Denies: no symptoms. Gastrointestinal: Denies: no symptoms. Genitourinary: Denies: no symptoms. Musculoskeletal: Reports: see HPI. Objective Last 24 Hrs of Vital Signs/I&O Vital Signs Date Time Temp Pulse Resp B/P B/P Pulse O2 O2 Flow FiO2 Mean Ox Delivery Rate 11/03 0636 98.6 84 18 98/60 99 Room Air 11/02 2231 98.8 89 18 102/60 100 Room Air 11/02 2030 97.5 101 18 106/60 97 Room Air 11/02 1441 97.8 99 18 100/60 99 Room Air / 0950 97.8 98 18 88/60 90 Room Air Intake & Output 11/03 1600 06 0800 11/03 0000 Intake Total 1160 1160 Output Total 450 400 Balance 710 760 Intake, IV 800 800 Intake, Oral 360 360 Output, Urine 450 400 Patient 179 lb Weight Weight Chair scale Measurement Method Physical Exam General Appearance: Alert, Oriented X3, Cooperative, Tired looking. Cardiovascular: Regular Rate, systolic murmur Lungs: Clear to Auscultation Abdomen: No Tenderness Extremities: I could not feel DP pulses bilaterally, Left foot is red, but not hot. Skin is glossy. Current Medications: Current Medications Sig/Abundio Start time Last Medication Dose Route Stop Time Status Admin Acetaminophen 650 MG .STK-MED ONE 11/02 1434 DC PO 11/02 1435 Acetaminophen 650 MG Q6P PRN 10/31 2130 AC 11/02 PO 1435 Acetaminophen/ 1 TAB Q6P PRN 10/31 213 AC 11/03 Hydrocodone Bitart PO 0451 Ampicillin Sodium/ 3,000 MG Q12H 11/02 1200 DC Sulbactam Sodium IV Sodium Chloride 100 ML Ampicillin Sodium/ 3,000 MG Q12 11/02 0700 DC 11/02 Sulbactam Sodium IV 1126 Sodium Chloride 100 ML Apixaban 2.5 MG BID 11/01 0130 AC 11/02 PO 2035 Atorvastatin Calcium 20 MG 1700 11/01 1700 AC 11/02 PO 1600 Calcitriol 0.25 MCG DAILY 11/02 1500 AC 11/02 PO 1559 Calcium Carbonate 1,250 MG Q8 11/02 1452 AC 11/03 PO 0451 Diltiazem HCl 240 MG AT BEDTIME 11/01 2200 AC 11/02 PO 203 Ergocalciferol 50,000 IU ONCE A WEEK 11/02 1000 AC 11/02 PO 12/21 1001 1126 Hydromorphone HCl 1 MG Q6P PRN 10/31 2130 AC 11/03 IV 0223 Insulin Aspart 0 TIDAC 11/01 0800 AC 11/02 SC 1646 Omeprazole 40 MG DAILY AC 11/01 0700 AC 11/03 PO 0451 Sodium Chloride 1,000 ML Q13H 10/31 2245 AC 11/02 IV 2331 Last 24 Hrs of Lab/Carlos Results Last 24 Hrs of Labs/Mics: Laboratory Tests 11/03/16 0845: Sodium Pending, Potassium Pending, Chloride Pending, Carbon Dioxide Pending, Anion Gap Pending, BUN Pending, Creatinine Pending, BUN/Creatinine Ratio Pending , Lactic Acid Pending, Calcium Pending, Phosphorus Pending, Magnesium Pending, Albumin Pending, CBC w Diff Pending, WBC Pending, RBC Pending, Hgb Pending, Hct Pending, MCV Pending, MCH Pending, RDW Pending, Plt Count Pending, MPV Pending, PUBS MCHC Pending 11/02/16 0937: Hemoglobin A1c 5.0 11/02/16 0937: Anion Gap 10, Estimated GFR 36 L, BUN/Creatinine Ratio 11.4, Calcium 6.2 L, Magnesium 1.6, Cortisol AM Sample 20.7, CBC w Diff NO MAN DIFF REQ, RBC 2.68 L, MCV 97.0, MCH 32.3 H, RDW 14.3, MPV 7.7, Gran % 83.8 H, Lymphocytes % 11.7 L, Monocytes % 4.0, Eosinophils % 0.3, Basophils % 0.2, Absolute Granulocytes 6.0, Absolute Lymphocytes 0.8 L, Absolute Monocytes 0.3, Absolute Eosinophils 0, Absolute Basophils 0, PUBS MCHC 33.3 Assessment/Plan Assessment: 80-year-old female with history of 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 However it may also beclaudication. She also has an MISTY most likely due to dehydration secondary to recent increase in her diuretics that is imprving but not resolved. Her baseline Cr is 0.8. Vital signs on admission were temperature 98.2, pulse 88, respiratory rate 20, blood pressure 85/50 --> 105/52, oxygen saturation 97% on room air. Labs at admission significant for WBC count 8.6, H&H 9.4/28.7, platelet count 229, Na 139, K 4.4, BUN/Cr 22, Cr 2.1, lactic acid 8.7 --> 6.6, calcium 6.2 corrected 7.0, phosphorus 4.7, magnesium 0.6, proBNP 3460, albumin 2.5. Recent lower extremity Doppler on 10/13/16 showed no evidence of DVT. X-ray showed cardiomegaly with intermediate patchy opacity of left lung base. EKG A.Fib with no acute ST-T wave changes. #Left lower extremity pain: The ID doctor came and saw her yesterday. He does not believe that it is infected, and that this is more likely to be claudication secondary to PVD. The foot is red but not hot. She describes the pain as throbbing, which is more likely claudication. The ID doctor does mention that an MRI may be useful to rule out osteomyelitis. We will discontinue antibtiotics at this point and consult the vascular surgeon. Of note, the PCP called this morning to report a positive wound culture he took. It grew pseudomonas. We will call him today to confirm and get these notes. 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 Recently increased lasix dose, but likely not the cause of her issues. This is probably caused by a vitamin D deficiency. With this, she has also been hypocalcemic and hypomagnesic. -Replete vitamin D [id number] Qweekly -Calcitrol 0.25 g by mouth daily -Decrease Calcium carbonate 1250 mg by mouth twice a day -Endocrine, nephrology consult #Hypotension: Her pressures have be good lately. -Monitor BP MISTY. Cr 2.1 at admission --> 1.1 responding to fluids indicating prerenal. We will continue fluid therapy. -Encourage by mouth intake -Holding lasix and lisinopril Chronic and stable conditions Atrial fibrillation: continue eliquis 2.5mg BID and diltiazem 240mg at bedtime HTN: Holding lisinopril and Lasix in the setting of MISTY and hypotension -- monitor BP Diabetes: Hold metformin; on atorvastatin 20mg- continue Accuchecks with sliding scale GERD: Continue omeprazole Pain management with Tylenol mild/Dilaudid IV Q6 PRN Diabetic diet DVT prophylaxis On Eliquis Code status full code Problem List: 1. Hypocalcemia 2. Left foot pain Pain Ratin Pain Location: Left foot. Pain Goal: Remain pain free Pain Plan: Dilaudid Tomorrow's Labs & Rationales: BEP, Ca, Mg, Phos, CBC KELLY ARAUZ MD 11/03/16 1232: Attending MD Review Statement Attending Statement Attending MD Statement: examined this patient, discuss w/resident/PA/PRODUCTION FLOATER, agreed w/resident/PA/PRODUCTION FLOATER, reviewed EMR data (avail) Attending Assessment/Plan: 80F PMH Afib on eliquis, T2DM w/ neuropathy, HTN, B12 def anemia, CHF admitted initially for LLE cellulitis, has had persistent hypotension since admission with metabolic derangement including hypocalcemia, hypomagnesemia, lactic acidosis, MISTY. 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 Pituitary function appears intact. Renal function is improving. The patient is now off antibiotics. AFVSS NAD Anicteric, MMM Supple RRR no m/r/g CTAB Soft, NTND Left first toe erythema and swelling Pulses intact A&Ox3 no focal deficits 1. LLE cellulitis 2. Persistent hypotension 3. Hypocalcemia 4. Secondary hyperparathyroidism 5. Vitamin D deficiency 6. Hypomagnesemia 7. MISTY 8. Lactic acidosis Plan - Continue on general medicine - Vascular consult - Follow up arterial dopplers - Follow endocrine, nephrology, and podiatry consults - Magnesium repletion with Slo-Mag - Continue Calcitriol, Ergocalciferol, calcium carbonate - Follow cultures - Monitor urine output - Continue home medications - DVT PPx - Can check daily lactate levels - Daily CMP, Mg, Phos, CBC
[2016-11-03 09:32] LABS: ABSOLUTE BASOPHIL COUNT 0 /CUMM (0.0-0.2); ABSOLUTE EOSINOPHIL COUNT 0.1 /CUMM (0.0-0.7); ABSOLUTE GRANULOCYTE CT 5.9 /CUMM (1.4-6.5); ABSOLUTE LYMPH COUNT 1.5 /CUMM (1.2-3.4); ABSOLUTE MONOCYTE COUNT 0.5 /CUMM (0.10-0.60); BASOPHIL % 0.1 % (0.0-2.0); EOSINOPHIL % 1.2 % (0-5); MEAN CORPUSCULAR HGB 32.8 PG (27.0-31.0); MEAN CORPUSCULAR HGB CONC 33.2 G/DL (33.0-37.0); MEAN CORPUSCULAR VOLUME 98.9 FL (81.0-99.0); PLATELET COUNT 211 /CUMM (130-400); RBC DISTRIBUTION WIDTH 14.3 % (11.5-14.5); RED BLOOD CELL CT 2.73 /CUMM (4.20-5.40)
--- NOTE | 2016-11-03 12:50 | PN- Endocrinology ---
Assessment/Plan Assessment: 80 year old female with PMH of Afib on eliquis, 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 Her BP has improved. Patient was found to have severe hypocalcemia, vitamin D deficiency and secondary hyperparathyroidism. She was put on vitamin d2 50,000 units once a week, calcitriol 0.25 mcg daily and calcium carbonate 1250 mg ( elemental calcium 500 mg) x 3 times a day Repeat am lab showed calcium 6.8, Mg 1.5, albumin 2.2 and phos 2.3 ( corrected calcium 8.2) Plan: Her calcium level is improving; 1. continue vitamin D2 50,000 units once a week; 2. decrease calcium carbonate to 1250 mg twice a day; 3. continue calcitriol 0.25 mcg daily for now; 4. calcitriol can be discontinued if her calcium level continues improving tomorrow. will follow. Subjective Subjective: She still have borderline BP. Objective Last 24 Hrs of Vital Signs/I&O Vital Signs Date Time Temp Pulse Resp B/P B/P Pulse O2 O2 Flow FiO2 Mean Ox Delivery Rate 11/03 0636 98.6 84 18 98/60 99 Room Air / 2231 98.8 89 18 102/60 100 Room Air / 2030 97.5 101 18 106/60 97 Room Air 07/05 1441 97.8 99 18 100/60 99 Room Air Intake & Output 11/03 1600 07/06 0800 07/06 0000 Intake Total 1160 1160 Output Total 450 400 Balance 710 760 Intake, IV 800 800 Intake, Oral 360 360 Output, Urine 450 400 Patient 179 lb Weight Weight Chair scale Measurement Method Results Pertinent Lab/Carlos Results: Laboratory Tests 11/03 0845 Chemistry Sodium (137 - 145 mmol/L) 140 Potassium (3.5 - 5.1 mmol/L) 4.6 Chloride (98 - 107 mmol/L) 115 H Carbon Dioxide (22 - 30 mmol/L) 19 L Anion Gap (5 - 16) 7 BUN (7 - 17 mg/dL) 12 Creatinine (0.5 - 1.0 mg/dL) 1.1 H Estimated GFR (>60 ml/min) 48 L BUN/Creatinine Ratio (7 - 25 %) 10.9 Lactic Acid (0.7 - 2.1 mmol/L) 2.7 H Calcium (8.4 - 10.2 mg/dL) 6.8 L Phosphorus (2.5 - 4.5 mg/dL) 2.3 L Magnesium (1.6 - 2.3 mg/dL) 1.5 L Albumin (3.5 - 5.0 g/dL) 2.2 L Hematology CBC w Diff NO MAN DIFF REQ WBC (4.8 - 10.8 /CUMM) 8.0 RBC (4.20 - 5.40 /CUMM) 2.73 L Hgb (12.0 - 16.0 G/DL) 9.0 L Hct (37 - 47 %) 27.0 L MCV (81.0 - 99.0 FL) 98.9 MCH (27.0 - 31.0 PG) 32.8 H RDW (11.5 - 14.5 %) 14.3 Plt Count (130 - 400 /CUMM) 211 MPV (7.4 - 10.4 FL) 8.0 Gran % (42.2 - 75.2 %) 74.0 Lymphocytes % (20.5 - 51.1 %) 19.1 L Monocytes % (1.7 - 9.3 %) 5.6 Eosinophils % (0 - 5 %) 1.2 Basophils % (0.0 - 2.0 %) 0.1 Absolute Granulocytes (1.4 - 6.5 /CUMM) 5.9 Absolute Lymphocytes (1.2 - 3.4 /CUMM) 1.5 Absolute Monocytes (0.10 - 0.60 /CUMM) 0.5 Absolute Eosinophils (0.0 - 0.7 /CUMM) 0.1 Absolute Basophils (0.0 - 0.2 /CUMM) 0 PUBS MCHC (33.0 - 37.0 G/DL) 33.2
[2016-11-03 14:05] VITALS: BP 102/62
--- NOTE | 2016-11-03 14:39 | Event Note ---
Event Note Event Note: S: This morning the nurse informed us that her PCPs office called to report a positive wound culture that grew pseudomonas. B: Ms. Gonzalez is an 80-year-old female here with right lower extremity pain that was initially thought to be cellulitis but may also be claudication secondary to atherosclerosis. She was on Unasyn but this was discontinued after Dangelo Platt MD saw her. The wound culture was taken superficially of the pus that was oozing on the day of admission. It was collected by Dr. Rosario, her PCP. A/P: She is currently doing ok and the infectious disease doctor has seen her. Because this is a superficial wound culture, it could be a contaminant. We will monitor her blood pressure, white count, and temperature. If she becomes unstable or shows signs of sepsis we will consider starting antibiotics that cover for Pseudomonas. For now we will continue to monitor off antibiotics.
--- NOTE | 2016-11-03 15:28 | RADIOLOGY REPORT ---
EXAMINATION: XR FOOT, RIGHT CLINICAL INFORMATION: Osteomyelitis COMPARISON: None TECHNIQUE: AP and lateral views of the right foot. FINDINGS: There is minimal arthrosis of the first metatarsophalangeal joint manifested by small subchondral cystic change. There is mild arthrosis of the first tarsometatarsal joint manifested by small marginal osteophytes. There is a moderate-sized plantar calcaneal spur and a small posterior calcaneal spur. Prominent arterial calcification present. No areas of bone destruction or erosion. IMPRESSION: There are no radiographic signs of osteomyelitis. Mild arthrosis. Prominent calcific atherosclerotic disease.
--- NOTE | 2016-11-03 15:46 | ULTRASOUND REPORT ---
EXAMINATION: US NONINVASIVE ASSESSMENT OF THE ARTERIES OF LOWER EXTREMITIES, BILATERAL INTERPRETING VASCULAR \T\ INTERVENTIONAL RADIOLOGIST: Darrell Hinkle MD CLINICAL INFORMATION: Ulcer on dorsum of left foot with claudication and pain. TECHNIQUE: Bilateral lower extremity duplex ultrasound was performed with velocity measurements and waveform analysis in the common femoral arteries, profunda femoris arteries, proximal mid and distal superficial femoral arteries, popliteal arteries and tibial vessels. This study was performed only at rest. COMPARISON: None FINDINGS: Velocities in cm/sec and phasicity as well as the presence of plaque are reported below. Scattered areas of plaquing are noted. RIGHT LEG: Common Femoral: 51 biphasic Profunda Femoris: 55 biphasic Proximal SFA: 106 biphasic Mid SFA: 88 biphasic Distal SFA: 65 biphasic Popliteal: 32 biphasic Anterior Tibial: 53 monophasic LEFT LEG: Common Femoral: 57 biphasic Profunda Femoris: 36 biphasic Proximal SFA: 37 monophasic Mid SFA: 73 biphasic Distal SFA: 122 monophasic Popliteal: 44 monophasic Posterior Tibial: 27 monophasic IMPRESSION: On the left, there is evidence of disease on the left with monophasic flow from the mid SFA downward with some mild velocity elevations distally. On the right, there is probably some distal tibial disease as evidenced by monophasic flow distally.
--- NOTE | 2016-11-03 17:44 | PN- Infect Dx ---
Subjective Subjective: Afebrile. She complains of pain in both calves and feet. Objective Last 24 Hrs of Vital Signs/I&O Vital Signs Date Time Temp Pulse Resp B/P B/P Pulse O2 O2 Flow FiO2 Mean Ox Delivery Rate 11/03 1405 98.0 88 18 102/62 98 Room Air 11/03 0636 98.6 84 18 98/60 99 Room Air 11/02 2231 98.8 89 18 102/60 100 Room Air 11/02 2030 97.5 101 18 106/60 97 Room Air Intake & Output 11/03 1600 11/03 0800 07 0000 Intake Total 1200 1160 1160 Output Total 450 450 400 Balance 750 710 760 Intake, IV 500 800 800 Intake, Oral 700 360 360 Output, Urine 450 450 400 Patient 179 lb Weight Weight Chair scale Measurement Method Physical Exam Other Physical Findings: She appears comfortable in no acute distress Extremities dressings intact over both feet; left calf with no erythema, questionable tenderness on palpation, Results Last 24 Hours of Lab Results: Laboratory Tests 11/03 0845 Chemistry Sodium (137 - 145 mmol/L) 140 Potassium (3.5 - 5.1 mmol/L) 4.6 Chloride (98 - 107 mmol/L) 115 H Carbon Dioxide (22 - 30 mmol/L) 19 L Anion Gap (5 - 16) 7 BUN (7 - 17 mg/dL) 12 Creatinine (0.5 - 1.0 mg/dL) 1.1 H Estimated GFR (>60 ml/min) 48 L BUN/Creatinine Ratio (7 - 25 %) 10.9 Lactic Acid (0.7 - 2.1 mmol/L) 2.7 H Calcium (8.4 - 10.2 mg/dL) 6.8 L Phosphorus (2.5 - 4.5 mg/dL) 2.3 L Magnesium (1.6 - 2.3 mg/dL) 1.5 L Albumin (3.5 - 5.0 g/dL) 2.2 L Vitamin B12 (239 - 931 pg/mL) 447 Hematology CBC w Diff NO MAN DIFF REQ WBC (4.8 - 10.8 /CUMM) 8.0 RBC (4.20 - 5.40 /CUMM) 2.73 L Hgb (12.0 - 16.0 G/DL) 9.0 L Hct (37 - 47 %) 27.0 L MCV (81.0 - 99.0 FL) 98.9 MCH (27.0 - 31.0 PG) 32.8 H RDW (11.5 - 14.5 %) 14.3 Plt Count (130 - 400 /CUMM) 211 MPV (7.4 - 10.4 FL) 8.0 Gran % (42.2 - 75.2 %) 74.0 Lymphocytes % (20.5 - 51.1 %) 19.1 L Monocytes % (1.7 - 9.3 %) 5.6 Eosinophils % (0 - 5 %) 1.2 Basophils % (0.0 - 2.0 %) 0.1 Absolute Granulocytes (1.4 - 6.5 /CUMM) 5.9 Absolute Lymphocytes (1.2 - 3.4 /CUMM) 1.5 Absolute Monocytes (0.10 - 0.60 /CUMM) 0.5 Absolute Eosinophils (0.0 - 0.7 /CUMM) 0.1 Absolute Basophils (0.0 - 0.2 /CUMM) 0 PUBS MCHC (33.0 - 37.0 G/DL) 33.2 Last 24 Hours of Carlos Results: Blood cultures October 31 negative Urine culture November 01 negative Recent Imaging Studies: X-ray of the right foot November 03 no areas of bone destruction or erosion Arterial Dopplers both feet November 03 reveal evidence of disease on the left with monophasic flow from the mid SFA downward and probable distal tibial disease on the right Assessment/Plan Impression: Stable off antibiotics with temperatures and white blood cell count remaining normal. The report of a positive superficial wound culture for Pseudomonas is noted but is of unclear significance as this likely represents skin contamination. Her pain is most likely ischemic in nature, with a possible neuropathic component as well. She has been evaluated by Vascular surgery, with tentative plans for an angiogram in the a.m. Suggestion: 1. Await possible angiogram in the a.m. 2. Continue to follow off antibiotics
--- NOTE | 2016-11-03 18:22 | Cons- Vascular Surgery ---
General Information and HPI Consulting Request Date of Consult: 11/03/16 Requested By: KELLY ARAUZ MD History of Present Illness: 80-year-old lady with history of A. fib on Eliquis, CHF, and neuropathy presented to the hospital with left foot pain. She quit smoking about 30 years ago. She was found to have bilateral ulcers of the feet. On the left foot, she lost the great toe nail. There is some nonpurulent drainage. Arterial ultrasound of bilateral lower extremity showed diffuse disease. Plain x-ray of the foot, has not shown any evidence of osteomyelitis. I was asked to see the patient regarding adequacy of blood flow to the foot. Allergies/Medications Allergies: Coded Allergies: No Known Allergies (10/31/16) Home Med List: Apixaban (Eliquis) 2.5 MG TABLET 1 TAB PO BID BLOOD THINNER (Reported) Diltiazem HCl (Cardizem Cd) 240 MG CAP.ER.24H 1 CAP PO QHS HEART/BP (Reported ) Furosemide 20 MG TABLET 1 TAB PO EOD DIURETIC (Reported) Furosemide (Lasix) 40 MG TABLET 1 TAB PO AD DIURETIC (Reported) Levofloxacin (Unknown Strength) TABLET (Unknown Dose) UNKNOWN (Reported) Metformin HCl 500 MG TABLET 1 TAB PO QAM DM (Reported) Metformin HCl 500 MG TABLET 2 TAB PO QPM DM (Reported) Multivitamin (Multi-Day Vitamins) 1 EACH TABLET 1 TAB PO DAILY SUPPLEMENT ( Reported) Omeprazole 40 MG CAPSULE.DR 1 CAP PO DAILY AC GI (Reported) Oxycodone HCl/Acetaminophen (Oxycodone-Acetaminophen 5-325) 5 MG-325 MG TABLET 1 TAB PO 4XDAILY PRN PAIN (Reported) Ramipril 10 MG CAPSULE 1 CAP PO QAM BP (Reported) Simvastatin (Zocor*) 20 MG TABLET 1 TAB PO QPM CHOLESTEROL (Reported) Past History Medical History Blood Transfusion Hx: No Neurological: peripheral neuropathy EENT: hearing loss Cardiovascular: AFIB Respiratory: NONE Gastrointestinal: constipation Hepatic: NONE Renal: NONE Musculoskeletal: NONE Psychiatric: NONE Endocrine: diabetes Blood Disorders: anemia Cancer(s): NONE NEUROLOGICAL SURGEON/Reproductive: NONE Surgical History Pertinent Surgical History: none Psychosocial History Where Do You Live? Home Services at Home: None Smoking Status: Never Smoked ETOH Use: denies use Illicit Drug Use: denies illicit drug use Review of Systems Review of Systems: Patient denies headache, dizziness, cough, palpitation, diarrhea or constipation Exam & Diagnostic Data Vital Signs and I&O Vital Signs Date Time Temp Pulse Resp B/P B/P Pulse O2 O2 Flow FiO2 Mean Ox Delivery Rate 11/03 1405 98.0 88 18 102/62 98 Room Air 11/03 0636 98.6 84 18 98/60 99 Room Air 11/02 2231 98.8 89 18 102/60 100 Room Air 11/02 2030 97.5 101 18 106/60 97 Room Air Intake & Output 11/03 1600 11/03 0800 11/03 0000 11/02 1600 11/02 0800 11/02 0000 Intake Total 1200 1160 1160 1000 1600 Output Total 450 604 878 5170 451 Balance 750 146 367 8566 -1200 1149 Intake, IV 500 800 529 726 5814 Intake, Oral 700 360 360 600 Output, Stool 1 Output, Urine 450 404 227 0095 450 Patient 179 lb 171 lb Weight Weight Chair scale Chair scale Measurement Method Physical Exam: Patient is alert and oriented 3 Lungs: Clear to auscultation bilaterally Heart: Irregular Abdomen: Soft, nontender nondistended Extremities: There are palpable femoral pulses bilaterally. I am unable to palpate pedal pulses bilaterally. The right foot has an ulcer on the medial aspect. There is a ulcer on the lateral aspect of the left foot. The left first toe is erythematous with drainage. Assessment/Plan Assessment/Plan 80-year-old lady with bilateral feet nonhealing ulcers with the left foot became worse. Left first toe has lost its nail. Arterial ultrasound showed diffuse disease bilaterally. Her creatinine is normal. She will benefit from left leg angiogram and possible intervention. I am hoping to perform this tomorrow afternoon. I will find out tomorrow morning whether this is a possibility or not. Please hold her Eliquis dose for tonight and tomorrow morning. Nothing by mouth after midnight. Surgical PA aware Consult Acknowledgment - Thank you for your consult request. Attending MD Review Statement Attending Statement Attending MD Statement: examined this patient, discuss w/resident/PA/WOOD TANK ERECTOR
--- NOTE | 2016-11-03 18:29 | Discharge Summary ---
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 She had doubled her baseline dose of Lasix 20 mg up to 40 mg 4 days prior to presentation with no noticeable improvement. She also endorsed a toenail falling off a few days prior to her admission. Additional information obtained from family members indicate that she has a long -standing history of lower extremity pain most prominent with ambulation for which she has not followed up with a vascular surgeon. VS on admission: BP 85/50, HR 98, RR 20, SPO2 97% on RA, T 98.2 Pertinent physical exam findings on admission: Absent toenails on left foot, superficial ulceration to the dorsum of the foot at least stage II ulceration, AAO 3, no acute distress. Irregularly irregular rhythm, 2/6 systolic murmur. Lungs CTA BL. Abdomen normal bowel sounds with a large midline abdominal hernia. Difficulty assessing dorsalis pedis/posterior tibial pulses. VS on admission: WBC 8.6, H&H 9.4/28.7, platelets 229K, sodium 139, potassium 4.4, chloride 107, bicarbonate 15, BUN/CR 22/2.1, glucose 129 Lactic acid 8.7 Calcium 6.2 Vitamin D Magnesium: 0.6 EKG Results atrial fibrillation and qs waves in v1 v2 CXR Results cardiomegaly and left lung base opacity X-ray of the left foot: No fracture or dislocation. Soft tissue surrounding the first digit is swollen. No definite cutaneous ulcer is seen. Vascular calcifications. If there is continued concern for osteomyelitis of the foot MRI examination is recommended. Additional information obtained from the patient's PCP Dr. Oconnor indicates that a superficial wound culture a few days prior did have heavy growth of Pseudomonas. We admitted the patient to general medicine and managed her for the following problems: 1. Cellulitis/skin ulceration of left foot 2. Peripheral artery disease 3. History of claudication 4. Attention/lactic acidosis 5. Acute kidney injury 6. Hypocalcemia, hypomagnesemia, vitamin D deficiency 7. Acute blood loss anemia Hospital course: 1. Cellulitis/skin ulceration of left foot in the context of peripheral artery/ vascular disease with history of claudication * In addition presentation for physical exam findings were of concern for cellulitis for which we started her on Unasyn and discontinued it after a couple of days in the context of a normal white count. * Arterial dupplex ultrasound: On the left, there is evidence of disease on the left with monophasic flow from the mid SFA downward with some mild velocity elevations distally. On the right, there is probably some distal tibial disease as evidenced by monophasic flow distally. * She was evaluated by our vascular surgeon Dr. Leonardo, underwent an angioplasty to the left anterior tibial artery on 11/08/2016. Post procedure hypotension and anemia s/p 1 PRBC transfusion and requiring telemetry monitoring the rest of her hospital stay * Noticeable weight gain throughout the hospital course in the context of aggressive fluid hydration which was managed with restarting furosemide once blood pressure remained stable 2. Hypotension with lactic acidosis * On presentation she did have an elevated lactic acid that was felt to be secondary to metformin toxicity precipitated by increased furosemide from 20-40 mg daily prior to admission * Blood pressure remained stable with fluid hydration and adjustment of her antihypertensive medications 3. Acute kidney injury * Elevation in creatinine on admission as indicated above was thought to be secondary to overdiuresis prior to her admission. Renal function returned to baseline at discharge (1.0) 4. 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 We started the patient on high-dose vitamin D supplementation with 50,000 IU once weekly to be continued for total of 8 weeks and follow-up maintenance with 1000/2000 international units * Additionally, we obtained endocrinology recommendations for further management. She was started on Calcitrol 0.25 g, and calcium carbonate 1250 mg ( elemental calcium 500 mg) x 3 times a day initially. Her calcium level improved throughout the hospital course and will plan to discharge her on vitamin D2 50,000 units once weekly and calcium carbonate 650 mg daily 5. Hypomagnesemia * Low magnesium on admission was supplemented with IV, PPI was discontinued in context of potential to induce hypomagnesemia. Plan to discharge the patient on H2 emanuel for reflux management 6. Shortness of breath * In the context of aggressive fluid hydration due to hypotension the patient was noted to become slightly hypoxic requiring restarting of furosemide. Chest x -ray did not show any effusion or infiltrate. From a pulmonary standpoint she remains stable the rest of the hospital course 8. Acute blood loss anemia * Transient drop in H&H status post angiogram to 6.9/21.1 for which she received one unit transfusion. H&H remained stable the rest of the hospital course * anemia of chronic disease with a low TIBC and normal iron and normal ferritin. Bilirubin and LDH has been normal. Her vitamin B12 was normal. 9. Atrial fibrillation * Wel maintained the patient on Eliquis 2.5 mg BID there was transiently held prior to the angiogram. Bridging with heparin drip restarted her home dose at discharge. Stable * diltiazem 240mg at bedtime 10. Hypertension * Blood pressure remained stable the rest of the hospital course. He started her on a regular dose of antihypertensives. 11. Left shoulder pain * The patient did complain of intermittent episodes of left shoulder pain worse with movement. X-rays obtained did show evidence of osteopenia but no acute fracture or focal lesions. Supportive therapy moving forward Allergies: Coded Allergies: No Known Allergies (10/31/16) Significant Procedures: Aortogram, ultrasound-guided right femoral artery access Third order left leg angiogram Angioplasty of left anterior tibial artery Disposition Summary Disposition Principal Diagnosis: Peripheral artery disease with chronic skin changes/ulceration to dorsum of left foot Cellulitis Additional Diagnosis: Hypotension with lactic acidosis Acute kidney injury Hypocalcemia Hypomagnesemia Vitamin D deficiency Acute blood loss anemia Discharge Disposition: SNF Discharge Instructions General Discharge Information Code Status: Full Code Patient's Diet: Diabetic diet Patient's Activity: As tolerated Follow-Up Instructions/Appts: Please take all medications as directed Please follow-up with her PCP within 1-2 weeks after discharge Please follow-up with the vascular surgeon within 2 weeks after discharge Medications at Discharge Discharge Medications: Stop taking the following medications: Furosemide (Furosemide) 20 MG TABLET ORAL Every other day Qty = 15 Levofloxacin (Levofloxacin) (Unknown Strength) TABLET Qty = 7 Furosemide (Lasix) 40 MG TABLET ORAL As Directed Continue taking these medications: Metformin HCl (Metformin HCl) 500 MG TABLET 1 Tablet ORAL Every Morning Qty = 270 Comments: NOT GIVEN IN HOSPITAL Metformin HCl (Metformin HCl) 500 MG TABLET 2 Tablet ORAL Every night Comments: NOT GIVEN IN HOSPITAL Apixaban (Eliquis) 2.5 MG TABLET 1 Tablet ORAL TWICE DAILY Qty = 60 Comments: Last Taken: 11/11/16 Time: 9:45 AM Simvastatin (Zocor*) 20 MG TABLET 1 Tablet ORAL Every night Comments: [facility] Last Taken: 11/10/16 Time: 4:00 PM Diltiazem HCl (Cardizem Cd) 240 MG CAP.ER.24H 1 Capsule ORAL TAKE AT BEDTIME Qty = 45 Comments: Last Taken: 11/10/16 Time: 9:00 PM Omeprazole (Omeprazole) 40 MG CAPSULE.DR 1 Capsule ORAL DAILY BEFORE BREAKFAST Qty = 45 Multivitamin (Multi-Day Vitamins) 1 EACH TABLET 1 Tablet ORAL DAILY Comments: NOT GIVEN IN HOSPITAL Ramipril (Ramipril) 10 MG CAPSULE 1 Capsule ORAL Every Morning Qty = 90 Comments: NOT GIVEN IN HOSPITAL Oxycodone HCl/Acetaminophen (Oxycodone-Acetaminophen 5-325) 5 MG-325 MG TABLET 1 Tablet ORAL 4XDAILY as needed for PAIN Qty = 105 Comments: NOT GIVEN IN HOSPITAL Start taking the following new medications: Furosemide (Lasix) 40 MG TABLET 1 Tablet ORAL TWICE DAILY Days = 30 No Refills Comments: Last Taken: 11/11/16 Time: 9:45 AM Magnesium Chloride (Slow-Mag) 71.5 MG TABLET.DR 1 Tablet ORAL TWICE DAILY Days = 30 No Refills Comments: Last Taken: 11/11/16 Time: 9:50 AM Calcium Carbonate (Calcium Carbonate) 650 MG CALCIUM (1,625 MG) TABLET 1 Tablet ORAL DAILY Days = 30 No Refills Comments: Last Taken: 11/11/16 Time: 9:45 AM Ergocalciferol (Vitamin D2) (Vitamin D2) 50,000 UNIT CAPSULE 1 Capsule ORAL Once a Week Qty = 4 No Refills Comments: Last Taken: 11/09/16 Time: 10:00 AM Copies To: EDWINA LÓPEZ,HAMMAD Pizano; CONNOR LÓPEZ,MARLYS Padilla; JAMIR OLEARY DPM; ROULA LÓPEZ,SMITH Ivan; JOON LÓPEZ,ROBERT; NEO LÓPEZ,CARLEE Calcium Carbonate (Calcium Carbonate) 650 MG CALCIUM (1,625 MG) TABLET 1 Tablet ORAL DAILY Days = 30 No Refills Comments: Last Taken: 11/11/16 Time: 9:45 AM Ergocalciferol (Vitamin D2) (Vitamin D2) 50,000 UNIT CAPSULE 1 Capsule ORAL Once a Week Qty = 4 No Refills Comments: Last Taken: 11/09/16 Time: 10:00 AM
[2016-11-03 22:30] VITALS: BP 100/62
[2016-11-03 23:39] VITALS: BP 114/60
[2016-11-04 02:06] VITALS: BP 112/76
[2016-11-04 06:53] VITALS: BP 108/60
[2016-11-04 08:25] LABS: ABSOLUTE BASOPHIL COUNT 0 /CUMM (0.0-0.2); ABSOLUTE EOSINOPHIL COUNT 0.1 /CUMM (0.0-0.7); ABSOLUTE GRANULOCYTE CT 5.5 /CUMM (1.4-6.5); ABSOLUTE LYMPH COUNT 1.4 /CUMM (1.2-3.4); ABSOLUTE MONOCYTE COUNT 0.5 /CUMM (0.10-0.60); BASOPHIL % 0.1 % (0.0-2.0); EOSINOPHIL % 1.4 % (0-5); GRANULOCYTE % 73.8 % (42.2-75.2); HEMATOCRIT 22.9 % (37-47); MEAN CORPUSCULAR HGB 32.5 PG (27.0-31.0); MEAN CORPUSCULAR HGB CONC 32.5 G/DL (33.0-37.0); MEAN CORPUSCULAR VOLUME 100.1 FL (81.0-99.0); MEAN PLATELET VOLUME 8.1 FL (7.4-10.4); PLATELET COUNT 173 /CUMM (130-400); RBC DISTRIBUTION WIDTH 14.9 % (11.5-14.5); RED BLOOD CELL CT 2.29 /CUMM (4.20-5.40); WHITE BLOOD CELL COUNT 7.4 /CUMM (4.8-10.8)
--- NOTE | 2016-11-04 09:01 | PN- Housestaff ---
LUBA LÓPEZ,SANTIAGO 11/04/16 0844: Subjective Follow-up For: Left foot pain, electrolyte abrnomalities, MISTY Subjective: She received 500 mL bolus last night for hypotension. Her blood pressure was in the 100 systolic. She is complaining of some dyspnea this morning that started last night. No chest pain. She has received +2 L in the last 24 hours. This morning she is still in a lot of pain in her left foot. She is asking for the angiogram to be done early. She says the pain medications used to help but no longer do. Review of Systems Constitutional: Denies: no symptoms. Cardiovascular: Denies: no symptoms, see HPI. Respiratory: Reports: see HPI. Gastrointestinal: Denies: no symptoms. Genitourinary: Denies: no symptoms. Musculoskeletal: Reports: see HPI. Objective Last 24 Hrs of Vital Signs/I&O Vital Signs Date Time Temp Pulse Resp B/P B/P Pulse O2 O2 Flow FiO2 Mean Ox Delivery Rate 11/04 0653 98.3 82 20 108/60 91 Room Air 11/04 0206 97 112/76 11/03 2339 106 114/60 98 Room Air 11/03 2230 97.9 89 19 100/62 99 Room Air 11/03 1405 98.0 88 18 102/62 98 Room Air Intake & Output 11/04 1600 11/04 0800 11/04 0000 Intake Total 500 1000 Output Total 250 150 Balance 250 850 Intake, IV 500 500 Intake, Oral 500 Output, Urine 250 150 Physical Exam General Appearance: Alert, Oriented X3, Cooperative, Mild Distress Cardiovascular: Regular Rate, Normal S1, Normal S2 Lungs: bibasilar crackles Abdomen: Normal Bowel Sounds, No Tenderness, large abdominal hernia/mass freely mobile. Neurological: Normal Speech Extremities: DP pulses absent bilaterally. Feet are not erythematous today. Current Medications: Current Medications Sig/Abundio Start time Last Medication Dose Route Stop Time Status Admin Acetaminophen 650 MG .STK-MED ONE 11/03 171 DC PO 11/03 1718 Acetaminophen 650 MG Q6P PRN 10/31 2129 AC 11/03 PO 171 Acetaminophen/ 1 TAB Q6P PRN 10/31 2130 AC 11/04 Hydrocodone Bitart PO 0515 Apixaban 2.5 MG BID 11/01 0130 DC 11/03 PO 0850 Atorvastatin Calcium 20 MG 1700 11/01 1700 AC 11/03 PO 1719 Calcitriol 0.25 MCG DAILY 11/02 1500 AC 11/03 PO 0850 Calcium Carbonate 1,250 MG BID 11/03 2200 AC 11/03 PO 2156 Calcium Carbonate 1,250 MG Q8 11/02 1452 NV 11/03 PO 0451 Dextrose/Sodium 1,000 ML Q13H 11/04 0200 DC 11/04 Chloride IV 11/04 1159 0151 Diltiazem HCl 240 MG AT BEDTIME 11/01 2200 11/03 PO 2356 Ergocalciferol 50,000 IU ONCE A WEEK 11/02 1000 AC 11/02 PO 12/21 1001 1126 Hydromorphone HCl 1 MG Q6P PRN 10/31 2130 11/04 IV 0302 Insulin Aspart 0 TIDAC 11/01 0800 NV 11/03 OK 1719 Insulin Human Regular 0 Q6 11/03 2359 11/04 SC 0619 Magnesium Oxide 800 MG ONCE ONE 11/03 1914 NV 11/03 PO 11/03 191 215 Omeprazole 40 MG DAILY AC 11/01 0700 11/04 PO 0619 Phosphate 250 MG ONCE ONE 11/03 191 NV 11/03 PO 11/03 191 2157 Phosphate 250 MG ONCE ONE 11/03 191 NV 11/03 PO 11/03 191 215 Sodium Chloride 500 ML BOLUS ONE 11/03 2215 NV 11/03 IV 11/03 2314 2210 Sodium Chloride 1,000 ML Q13H 10/31 2245 NV 11/03 IV 0851 Last 24 Hrs of Lab/Carlos Results Last 24 Hrs of Labs/Mics: Laboratory Tests 11/04/16 0715: CBC w Diff Pending, WBC Pending, RBC Pending, Hgb Pending, Hct Pending, MCV Pending, MCH Pending, RDW Pending, Plt Count Pending, MPV Pending, PUBS MCHC Pending 11/04/16 0650: Anion Gap 7, Estimated GFR 53 L, BUN/Creatinine Ratio 10.0, Lactic Acid 1.0, Calcium 6.8 L, Phosphorus 2.6, Magnesium 1.3 L 11/03/16 2105: Urine Color YEL, Urine Clarity HAZY H, Urine pH 6.0, Ur Specific Glen 1.020, Urine Protein TRACE H, Urine Ketones NEG, Urine Nitrite NEG, Urine Bilirubin NEG, Urine Urobilinogen 0.2, Ur Leukocyte Esterase MOD H, Ur Microscopic SEDIMENT EXAMINED, Urine WBC 25-50 H, Ur Epithelial Cells MOD H, Urine Bacteria FEW H, Urine Hemoglobin SMALL H, Urine Glucose NEG 11/03/16 2105: Ur Random Creatinine 96.8, Ur Random Sodium 19 L, Ur Random Potassium 14.7, Fraction Sodium Excret 0.2 Orders Radiology Findings: Duplex ultrasound: On the left there is evidence of disease with some mild callosity elevations distally. On the right there is some distal tibial disease. X-ray of the right foot done yesterday: There are no radiographic signs of osteomyelitis. Mild arthrosis and prominent calcific atherosclerotic disease. 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 However it may also be claudication. When she arrived she had an MISTY that has since resolved with hydration and her creatinine is now 1.0. She likely had a metformin induced lactic acidosis. Her lactic acid has come down from 8.7 on October 31 to 1.0 on November 04. Her other electrolytes have continued to improve. I called her PCP, Dr. Rosario, on 11/03/2016 and confirmed a superficial wound culture that grew Pseudomonas. It was taken the day of admission. Because it was a superficial wound culture it is possible that this is a contaminant. #Dyspnea: She is complaining of some shortness of breath that started last night. No chest pain. She is +2 L the past 24 hours. We want to be careful with the fluids and not push her into CHF exacerbation. Other potential causes include PE and infection. Blood pressure in the low 100s over 60-70. Pulse ox 91% on room air. She was briefly tachycardic to 106 last night but heart rate was 82 this morning. She has been afebrile. We will stop her fluids and get a chest x-ray. If dyspnea worsens or vitals signs worsen we will consider getting a CTA. -Monitor vitals. If she becomes tachycardic or hypoxic consider CTA -Discontinue fluids -Chest x-ray -Oxygen therapy #Left lower extremity pain: The vascular surgeon saw her yesterday. He believes that she will benefit from a left leg angiogram and possible intervention. We' re hoping this will happen this morning. We will continue to monitor for signs of infection. Her pain is quite severe. However she does not like to take pain medications. -Continue to monitor off antibiotics. 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 Recently increased lasix dose, but likely not the cause of her issues. This is probably caused by a vitamin D deficiency. With this, she has also been hypocalcemic and hypomagnesic. Today her corrected calcium is 7.8. -Replete vitamin D 41524O Qweekly -Calcitrol 0.25 g by mouth daily -Calcium carbonate 1250 mg by mouth twice a day -Endocrine, nephrology consult -Replete magnesium with IV and by mouth magnesium #Normocytic anemia. Her hemoglobin has been slowly declining. On October 31 it was 9.4 today it is 7.7. Most likely anemia of chronic disease with a low TIBC and normal iron and normal ferritin. We will monitor for blood loss. -Daily CBCs -Stool guaiac #Hypotension: Her pressures have be good lately. -Monitor BP MISTY. Creatinine around 1.0. Resolved. -Holding lasix and lisinopril Chronic and stable conditions Atrial fibrillation: continue eliquis 2.5mg BID and diltiazem 240mg at bedtime HTN: Holding lisinopril and Lasix in the setting of normotension. Diabetes: Hold metformin; on atorvastatin 20mg- continue Accuchecks with sliding scale GERD: Stop omeprazole. Start an H2 emanuel instead because PPIs can waste magnesium. Pain management with Tylenol mild/Dilaudid IV Q6 PRN Diabetic diet DVT prophylaxis On Eliquis Code status full code Problem List: 1. Left foot pain 2. Atrial fibrillation, chronic Pain Ratin Pain Location: Left leg/foot Pain Goal: Remain pain free Pain Plan: Dilaudid Tomorrow's Labs & Rationales: CBC, BEP, calcium, mag, phosphorus KELLY ARAUZ MD 11/04/16 1120: Attending Review Statement Attending Statement Attending Statement: examined this patient, discuss w/resident/PA/TOP CAGER, agreed w/resident/PA/TOP CAGER, reviewed EMR data (avail) Attending Assessment/Plan: 80F PMH Afib on eliquis, T2DM w/ neuropathy, HTN, B12 def anemia, CHF admitted initially for LLE cellulitis, has had persistent hypotension since admission with metabolic derangement including hypocalcemia, hypomagnesemia, lactic acidosis, MISTY. 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 Pituitary function appears intact. Renal function is improving. The patient is now off antibiotics. She complains of continued pain to the foot particularly when moving around. 1. LLE cellulitis 2. Persistent hypotension 3. Hypocalcemia 4. Secondary hyperparathyroidism 5. Vitamin D deficiency 6. Hypomagnesemia 7. MISTY (resolved) 8. Lactic acidosis (resolved) Plan - Continue on general medicine - Will go for arteriogram today - Follow endocrine, nephrology, vascular, and podiatry consults - Magnesium repletion with Slo-Mag - Continue Calcitriol, Ergocalciferol, calcium carbonate - Follow cultures - Monitor urine output - Continue home medications - DVT PPx - Daily CMP, Mg, Phos, CBC ADDENDUM: Patient went down for angiography and became short of breath in pre- op, requiring 3L NC. She reports shortness of breath but otherwise has no complaints. Lung exam reveals bilateral lower crackles. Suspect volume overload. Will give Lasix 20mg IV and monitor fluid status.
--- NOTE | 2016-11-04 10:34 | Cons- Nephrology ---
General Information and HPI Consulting Request Date of Consult: 11/04/16 Requested By: KELLY ARAUZ MD Reason for Consult: HypoCa, HypoMg, MISTY, lactic acidosis Source of Information: patient, old records Exam Limitations: no limitations History of Present Illness: 80 yr old WF w mult med problems including DM, HTN, A fib, neuropathy, & PVD admit 10/31/16 w hypotension & L leg ulcer/cellulitis. Found hypotensive w lactic acidosis, hypocalcemia, & hypomagnesemia. Baseline renal function unavailable but BUN/Cr also elevated 22/2.1 in face of outpt Lasix & ACEI. Other outpt meds included metformin & PPI but denies NSAIDs. Begun on IV NS, antibiotics, IV Ca, & IV Mg. Nonoliguric w improving Cr to 1.0 today. Had transient vomiting & diarrhea @ home but none since. Found Vit D deficient & begun on oral supplement , including calcitriol. Denies previous hypocalcemia or hypomagnesemia; no EtOH abuse. No sz, paresthesia, muscle cramps. Now scheduled for lower extremity A gram w possible PCI. Allergies/Medications Allergies: Coded Allergies: No Known Allergies (10/31/16) Home Med List: Apixaban (Eliquis) 2.5 MG TABLET 1 TAB PO BID BLOOD THINNER (Reported) Diltiazem HCl (Cardizem Cd) 240 MG CAP.ER.24H 1 CAP PO QHS HEART/BP (Reported ) Furosemide 20 MG TABLET 1 TAB PO EOD DIURETIC (Reported) Furosemide (Lasix) 40 MG TABLET 1 TAB PO AD DIURETIC (Reported) Levofloxacin (Unknown Strength) TABLET (Unknown Dose) UNKNOWN (Reported) Metformin HCl 500 MG TABLET 1 TAB PO QAM DM (Reported) Metformin HCl 500 MG TABLET 2 TAB PO QPM DM (Reported) Multivitamin (Multi-Day Vitamins) 1 EACH TABLET 1 TAB PO DAILY SUPPLEMENT ( Reported) Omeprazole 40 MG CAPSULE.DR 1 CAP PO DAILY AC GI (Reported) Oxycodone HCl/Acetaminophen (Oxycodone-Acetaminophen 5-325) 5 MG-325 MG TABLET 1 TAB PO 4XDAILY PRN PAIN (Reported) Ramipril 10 MG CAPSULE 1 CAP PO QAM BP (Reported) Simvastatin (Zocor*) 20 MG TABLET 1 TAB PO QPM CHOLESTEROL (Reported) Current Medications: Current Medications Sig/Abundio Start time Last Medication Dose Route Stop Time Status Admin Acetaminophen 650 MG .STK-MED ONE 11/03 1718 NM PO 11/03 171 Acetaminophen 650 MG Q6P PRN 10/31 2130 11/04 PO 0909 Acetaminophen/ 1 TAB Q6P PRN 10/31 2130 11/04 Hydrocodone Bitart PO 0515 Apixaban 2.5 MG BID 11/01 0130 NM 11/03 PO 0850 Atorvastatin Calcium 20 MG 1700 11/01 1700 11/03 PO 1719 Calcitriol 0.25 MCG DAILY 11/02 1500 11/04 PO 0909 Calcium Carbonate 1,250 MG BID 11/03 2200 11/04 PO 0909 Calcium Carbonate 1,250 MG Q8 11/02 1452 NM 11/03 PO 0451 Dextrose/Sodium 1,000 ML Q13H 11/04 0200 NM 11/04 Chloride IV 11/04 1159 0151 Diltiazem HCl 240 MG AT BEDTIME 11/01 2200 11/03 PO 2356 Ergocalciferol 50,000 IU ONCE A WEEK 11/02 1000 11/02 PO 12/21 1001 1126 Hydromorphone HCl 1 MG Q6P PRN 10/31 2130 11/04 IV 0302 Insulin Aspart 0 TIDAC 11/01 0800 NM 11/03 PR 1719 Insulin Human Regular 0 Q6 11/03 2359 11/04 SC 0619 Magnesium Oxide 800 MG ONCE ONE 11/03 1914 NM 11/03 PO 11/03 191 2156 Omeprazole 40 MG DAILY AC 11/01 0700 11/04 PO 0619 Phosphate 250 MG ONCE ONE 11/03 191 NM 11/03 PO 11/03 191 2157 Phosphate 250 MG ONCE ONE 11/03 191 NM 11/03 PO 11/03 191 2157 Sodium Chloride 500 ML BOLUS ONE 11/03 2215 NM 11/03 IV 11/03 2314 2210 Sodium Chloride 1,000 ML Q13H 10/31 2245 NM 11/03 IV 0851 Review of Systems Review of Systems Constitutional: Denies: malaise. EENTM: Reports: no symptoms. Cardiovascular: Reports: no symptoms. Respiratory: Reports: no symptoms. GI: Reports: diarrhea, vomiting. Genitourinary: Reports: no symptoms. Musculoskeletal: Reports: no symptoms. Skin: Reports: no symptoms. Neurological/Psychological: Reports: no symptoms. Hematologic/Endocrine: Reports: no symptoms. Immunologic/Allergic: Reports: no symptoms. 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 Home Services at Home: None Smoking Status: Never Smoked ETOH Use: denies use Illicit Drug Use: denies illicit drug use Exam & Diagnostic Data Vital Signs and I&O Vital Signs Date Time Temp Pulse Resp B/P B/P Pulse O2 O2 Flow FiO2 Mean Ox Delivery Rate 11/04 0800 Nasal 1.0L Cannula 11/04 0653 98.3 82 20 108/60 91 Room Air 11/04 0206 97 112/76 11/03 2339 106 114/60 98 Room Air 11/03 2230 97.9 89 19 100/62 99 Room Air 11/03 1405 98.0 88 18 102/62 98 Room Air Intake & Output 11/04 1600 07 0400 11/03 1600 11/03 0400 / 1600 11/02 0400 Intake Total 500 1000 2360 1160 1000 1600 Output Total 250 150 505 645 2142 451 Balance 084 161 2541 760 -200 1149 Intake, IV 198 759 8130 489 392 3796 Intake, Oral 500 1060 360 600 Output, Stool 1 Output, Urine 250 150 401 508 0876 450 Patient 178 lb 179 lb 171 lb Weight Weight Chair scale Chair scale Measurement Method Physical Exam General Appearance: well developed/nourished, no apparent distress, alert Head: atraumatic, normal appearance Eyes: Bilateral: normal appearance. Ears, Nose, Throat: normal ENT inspection Neck: normal inspection Respiratory: normal breath sounds, no respiratory distress, quiet respiration, lungs clear Cardiovascular: regular rate/rhythm Gastrointestinal: soft, non-tender, no organomegaly, large abd wal hernia Extremities: swelling, L ft dressed; superficial lateral R ft ulcer Neurologic/Psych: no motor/sensory deficits, awake, alert, oriented x 3, transformation consultant II- XII nml as tested Skin: intact, normal color, warm/dry Lymphatic: adenopathy, no anterior cervical laron, no axillary adenoapthy Results Pertinent Lab Results: Laboratory Tests 11/04 11/04 0715 0650 Chemistry Sodium (137 - 145 mmol/L) 142 Potassium (3.5 - 5.1 mmol/L) 4.3 Chloride (98 - 107 mmol/L) 115 H Carbon Dioxide (22 - 30 mmol/L) 19 L Anion Gap (5 - 16) 7 BUN (7 - 17 mg/dL) 10 Creatinine (0.5 - 1.0 mg/dL) 1.0 Estimated GFR (>60 ml/min) 53 L BUN/Creatinine Ratio (7 - 25 %) 10.0 Lactic Acid (0.7 - 2.1 mmol/L) 1.0 Calcium (8.4 - 10.2 mg/dL) 6.8 L Phosphorus (2.5 - 4.5 mg/dL) 2.6 Magnesium (1.6 - 2.3 mg/dL) 1.3 L Hematology CBC w Diff NO MAN DIFF REQ WBC (4.8 - 10.8 /CUMM) 7.4 RBC (4.20 - 5.40 /CUMM) 2.29 L Hgb (12.0 - 16.0 G/DL) 7.4 *L Hct (37 - 47 %) 22.9 L MCV (81.0 - 99.0 FL) 100.1 H MCH (27.0 - 31.0 PG) 32.5 H RDW (11.5 - 14.5 %) 14.9 H Plt Count (130 - 400 /CUMM) 173 MPV (7.4 - 10.4 FL) 8.1 Gran % (42.2 - 75.2 %) 73.8 Lymphocytes % (20.5 - 51.1 %) 18.2 L Monocytes % (1.7 - 9.3 %) 6.5 Eosinophils % (0 - 5 %) 1.4 Basophils % (0.0 - 2.0 %) 0.1 Absolute Granulocytes (1.4 - 6.5 /CUMM) 5.5 Absolute Lymphocytes (1.2 - 3.4 /CUMM) 1.4 Absolute Monocytes (0.10 - 0.60 /CUMM) 0.5 Absolute Eosinophils (0.0 - 0.7 /CUMM) 0.1 Absolute Basophils (0.0 - 0.2 /CUMM) 0 PUBS MCHC (33.0 - 37.0 G/DL) 32.5 L 11/03 Urines Urine Color (YEL,AMB,STR) YEL Urine Clarity (CLEAR) HAZY H Urine pH (5.0 - 8.0) 6.0 Ur Specific [place] (1.001 - 1.035) 1.020 Urine Protein (NEG,<30 MG/DL) TRACE H Urine Ketones (NEG) NEG Urine Nitrite (NEG) NEG Urine Bilirubin (NEG) NEG Urine Urobilinogen (0.1 - 1.0 EU/dl) 0.2 Ur Leukocyte Esterase (NEG) MOD H Ur Microscopic SEDIMENT EXAMINED Urine WBC (0 - 2 /HPF) 25-50 H Ur Epithelial Cells (NONE,FEW) MOD H Urine Bacteria (NEG/NONE) FEW H Urine Hemoglobin (NEG) SMALL H Ur Random Creatinine (mg/dL) 96.8 Ur Random Sodium (30 - 90 mmol/L) 19 L Ur Random Potassium (mmol/L) 14.7 Fraction Sodium Excret (<1% %) 0.2 Urine Glucose (N MG/DL) NEG 11/03 11/02 0845 0937 Chemistry Sodium (137 - 145 mmol/L) 140 Potassium (3.5 - 5.1 mmol/L) 4.6 Chloride (98 - 107 mmol/L) 115 H Carbon Dioxide (22 - 30 mmol/L) 19 L Anion Gap (5 - 16) 7 BUN (7 - 17 mg/dL) 12 Creatinine (0.5 - 1.0 mg/dL) 1.1 H Estimated GFR (>60 ml/min) 48 L BUN/Creatinine Ratio (7 - 25 %) 10.9 Hemoglobin A1c (4.2 - 5.8 %) 5.0 Lactic Acid (0.7 - 2.1 mmol/L) 2.7 H Calcium (8.4 - 10.2 mg/dL) 6.8 L Phosphorus (2.5 - 4.5 mg/dL) 2.3 L Magnesium (1.6 - 2.3 mg/dL) 1.5 L Iron (37 - 170 ug/dL) 61 TIBC (265 - 497 ug/dL) 150 L Ferritin (11.1 - 264 ng/mL) 134.0 Albumin (3.5 - 5.0 g/dL) 2.2 L Vitamin B12 (239 - 931 pg/mL) 447 Hematology CBC w Diff NO MAN DIFF REQ WBC (4.8 - 10.8 /CUMM) 8.0 RBC (4.20 - 5.40 /CUMM) 2.73 L Hgb (12.0 - 16.0 G/DL) 9.0 L Hct (37 - 47 %) 27.0 L MCV (81.0 - 99.0 FL) 98.9 MCH (27.0 - 31.0 PG) 32.8 H RDW (11.5 - 14.5 %) 14.3 Plt Count (130 - 400 /CUMM) 211 MPV (7.4 - 10.4 FL) 8.0 Gran % (42.2 - 75.2 %) 74.0 Lymphocytes % (20.5 - 51.1 %) 19.1 L Monocytes % (1.7 - 9.3 %) 5.6 Eosinophils % (0 - 5 %) 1.2 Basophils % (0.0 - 2.0 %) 0.1 Absolute Granulocytes (1.4 - 6.5 /CUMM) 5.9 Absolute Lymphocytes (1.2 - 3.4 /CUMM) 1.5 Absolute Monocytes (0.10 - 0.60 /CUMM) 0.5 Absolute Eosinophils (0.0 - 0.7 /CUMM) 0.1 Absolute Basophils (0.0 - 0.2 /CUMM) 0 PUBS MCHC (33.0 - 37.0 G/DL) 33.2 11/02 11/02 11/01 7943 9935 2130 Chemistry Sodium (137 - 145 mmol/L) 138 Potassium (3.5 - 5.1 mmol/L) 4.2 Chloride (98 - 107 mmol/L) 111 H Carbon Dioxide (22 - 30 mmol/L) 17 L Anion Gap (5 - 16) 10 BUN (7 - 17 mg/dL) 16 Creatinine (0.5 - 1.0 mg/dL) 1.4 H Estimated GFR (>60 ml/min) 36 L BUN/Creatinine Ratio (7 - 25 %) 11.4 Lactic Acid (0.7 - 2.1 mmol/L) Cancelled 2.6 H Calcium (8.4 - 10.2 mg/dL) 6.2 L Magnesium (1.6 - 2.3 mg/dL) 1.6 Cortisol AM Sample (4.46 - 22.7 ug/dL) 20.7 Hematology CBC w Diff NO MAN DIFF REQ WBC (4.8 - 10.8 /CUMM) 7.2 RBC (4.20 - 5.40 /CUMM) 2.68 L Hgb (12.0 - 16.0 G/DL) 8.6 L Hct (37 - 47 %) 26.0 L MCV (81.0 - 99.0 FL) 97.0 MCH (27.0 - 31.0 PG) 32.3 H RDW (11.5 - 14.5 %) 14.3 Plt Count (130 - 400 /CUMM) 203 MPV (7.4 - 10.4 FL) 7.7 Gran % (42.2 - 75.2 %) 83.8 H Lymphocytes % (20.5 - 51.1 %) 11.7 L Monocytes % (1.7 - 9.3 %) 4.0 Eosinophils % (0 - 5 %) 0.3 Basophils % (0.0 - 2.0 %) 0.2 Absolute Granulocytes (1.4 - 6.5 /CUMM) 6.0 Absolute Lymphocytes (1.2 - 3.4 /CUMM) 0.8 L Absolute Monocytes (0.10 - 0.60 /CUMM) 0.3 Absolute Eosinophils (0.0 - 0.7 /CUMM) 0 Absolute Basophils (0.0 - 0.2 /CUMM) 0 PUBS MCHC (33.0 - 37.0 G/DL) 33.3 11/01 11/01 11/01 2130 1735 1600 Chemistry Sodium (137 - 145 mmol/L) 138 138 Potassium (3.5 - 5.1 mmol/L) 3.8 3.7 Chloride (98 - 107 mmol/L) 111 H 110 H Carbon Dioxide (22 - 30 mmol/L) 17 L 17 L Anion Gap (5 - 16) 10 11 BUN (7 - 17 mg/dL) 18 H 17 Creatinine (0.5 - 1.0 mg/dL) 1.6 H 1.6 H Estimated GFR (>60 ml/min) 31 L 31 L BUN/Creatinine Ratio (7 - 25 %) 11.3 10.6 Lactic Acid (0.7 - 2.1 mmol/L) 4.5 H Calcium (8.4 - 10.2 mg/dL) 5.6 *L 5.7 *L Cancelled Magnesium (1.6 - 2.3 mg/dL) 1.3 L 1.3 L TSH (0.270 - 4.200 uIU/mL) 3.400 Free T4 (0.85 - 1.93 ng/dL) 1.51 Hematology CBC w Diff NO MAN DIFF REQ WBC (4.8 - 10.8 /CUMM) 8.4 RBC (4.20 - 5.40 /CUMM) 2.77 L Hgb (12.0 - 16.0 G/DL) 8.9 L Hct (37 - 47 %) 27.4 L MCV (81.0 - 99.0 FL) 98.8 MCH (27.0 - 31.0 PG) 32.3 H RDW (11.5 - 14.5 %) 14.6 H Plt Count (130 - 400 /CUMM) 195 MPV (7.4 - 10.4 FL) 7.8 Gran % (42.2 - 75.2 %) 73.1 Lymphocytes % (20.5 - 51.1 %) 19.3 L Monocytes % (1.7 - 9.3 %) 6.6 Eosinophils % (0 - 5 %) 0.6 Basophils % (0.0 - 2.0 %) 0.4 Absolute Granulocytes (1.4 - 6.5 /CUMM) 6.2 Absolute Lymphocytes (1.2 - 3.4 /CUMM) 1.6 Absolute Monocytes (0.10 - 0.60 /CUMM) 0.6 Absolute Eosinophils (0.0 - 0.7 /CUMM) 0 Absolute Basophils (0.0 - 0.2 /CUMM) 0 PUBS MCHC (33.0 - 37.0 G/DL) 32.7 L 11/01 07/ 1320 1110 Chemistry Lactic Acid (0.7 - 2.1 mmol/L) 4.2 H 3.8 H PTH 185 on 11/02/16 Imaging/Other Studies: CXR: IMPRESSION: Cardiomegaly with indeterminate patchy opacity left lung base for which follow-up imaging is recommended to clearing. Assessment/Plan Assessment/Recommendations Assessment: 1. MISTY: improved prerenal due to volume contraction, hypotension, & sepsis in face of AGATA interruption. Improvement w IV fluids speaks against ATN, however prob higher risk for additional MISTY/ATN w anticiapted A gram today. 2. Met Acid: primarily lactic acidosis on admit now improved --> due to combination of hypotension/sepsis & metformin use in setting MISTY. Also likely had component mild DKA on admit w + urine ketones since resolved. Would continue off metformin for now, especially w upcoming Agram. 3. HypoMg: likely due to lasix & PPI; needs additional po & IV supplement as PPI stopped. 4. HypoCa: improved; now mild --> corrected Ca for hypoalbuminemia ~ 8.2 w/o sx. Due to combination hypoMg & profound Vit D deficiency. No evidence for hypoPTH, but rather secondary hyperPTH that will likely resolve as Ca & Mg correct. Recommendations: 1. watch renal function post A-gram 2. stop PPI - can use H2 emanuel instead 3. IV & po Mg 4. continue po Ca & Vit D
--- NOTE | 2016-11-04 11:04 | RADIOLOGY REPORT ---
EXAMINATION: XR PORTABLE CHEST CLINICAL INFORMATION: Hypoxia with increased crackles. COMPARISON: 10/31/2016 TECHNIQUE: Portable frontal view of the chest was obtained. FINDINGS: The patient is slightly rotated to the right. The persistent hazy opacity in the left lung base is probably due to lingular atelectasis adjacent to the paracardiac fat pad. There is minimal linear opacity of atelectasis or scarring in the right lateral lung base. There is no convincing airspace opacification. No interstitial pulmonary edema, pneumothorax or overt pleural effusion observed on this single view exam. Again noted is the large cardiac silhouette and ectatic appearance of the uncoiled atherosclerotic aortic arch. Bones appear diffusely osteopenic. IMPRESSION: 1. Cardiomegaly without evidence of cephalization of venous flow or interstitial edema. 2. Hazy opacity in the left lung base is probably due to atelectasis adjacent to the paracardiac fat pad. No new pulmonary findings compared to 10/31/2016.
[2016-11-04 11:06] LABS: ABSOLUTE BASOPHIL COUNT 0 /CUMM (0.0-0.2); ABSOLUTE EOSINOPHIL COUNT 0.1 /CUMM (0.0-0.7); ABSOLUTE GRANULOCYTE CT 5.9 /CUMM (1.4-6.5); ABSOLUTE LYMPH COUNT 0.9 /CUMM (1.2-3.4); ABSOLUTE MONOCYTE COUNT 0.3 /CUMM (0.10-0.60); BASOPHIL % 0.2 % (0.0-2.0); EOSINOPHIL % 1.2 % (0-5); MEAN CORPUSCULAR HGB 32.6 PG (27.0-31.0); MEAN CORPUSCULAR HGB CONC 33.3 G/DL (33.0-37.0); MEAN CORPUSCULAR VOLUME 97.9 FL (81.0-99.0); MEAN PLATELET VOLUME 7.7 FL (7.4-10.4); PLATELET COUNT 187 /CUMM (130-400); RBC DISTRIBUTION WIDTH 14.5 % (11.5-14.5); RED BLOOD CELL CT 2.35 /CUMM (4.20-5.40); WHITE BLOOD CELL COUNT 7.2 /CUMM (4.8-10.8)
--- NOTE | 2016-11-04 11:49 | NUR ---
WOUND CARE: PT SEEN FOR SKIN ALTERATION PRESENT ON ADMISSION TO COCCYX / BUTTOCKS - AREA OF HYPERPIGMENTATION TO COCCYX AND BUTTOCKS AND STAGE 1 SKIN ALTERATION - 4X4 CM - INTACT RECOMMEDNATION: CONT WITH PREVENTATIVE SKIN CARE PER FACILTY POLICY - APPLY MOISTURE BARRIER QS AND PRN
--- NOTE | 2016-11-04 12:22 | PN- Endocrinology ---
Assessment/Plan Assessment: 80 year old female with PMH of Afib on eliquis, 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 Her BP has improved. Patient was found to have severe hypocalcemia, vitamin D deficiency and secondary hyperparathyroidism. She was put on vitamin d2 50,000 units once a week, calcitriol 0.25 mcg daily and calcium carbonate 1250 mg ( elemental calcium 500 mg) x 3 times a day Repeat am lab showed calcium 6.8, Mg 1.3, albumin 2.2 and phos 2.6 ( corrected calcium 8.2). Calcium carbonate was decreased to 1250 mg twice a day. Plan: Her calcium level is improving; 1. continue vitamin D2 50,000 units once a week; 2. continue calcium carbonate 1250 mg twice a day; 3. continue calcitriol 0.25 mcg daily for now; 4. replete Mg. 5. calcitriol can be discontinued if her corrected calcium level is > 9.0. will follow. Subjective Subjective: She is waiting for the vasular procedure done. Objective Last 24 Hrs of Vital Signs/I&O Vital Signs Date Time Temp Pulse Resp B/P B/P Pulse O2 O2 Flow FiO2 Mean Ox Delivery Rate 11/04 08 Nasal 1.0L Cannula 11/04 0653 98.3 82 20 108/60 91 Room Air 11/04 0206 97 112/76 11/03 2339 106 114/60 98 Room Air 11/03 2230 97.9 89 19 100/62 99 Room Air 11/03 1405 98.0 88 18 102/62 98 Room Air Intake & Output 11/04 1600 11/04 0800 11/04 0000 Intake Total 500 1000 Output Total 250 150 Balance 250 850 Intake, IV 500 500 Intake, Oral 500 Output, Urine 250 150 Patient 178 lb Weight Results Pertinent Lab/Carlos Results: Laboratory Tests 11/04 11/04 1050 0715 Hematology CBC w Diff NO MAN DIFF REQ NO MAN DIFF REQ WBC (4.8 - 10.8 /CUMM) 7.2 7.4 RBC (4.20 - 5.40 /CUMM) 2.35 L 2.29 L Hgb (12.0 - 16.0 G/DL) 7.7 L 7.4 *L Hct (37 - 47 %) 23.0 L 22.9 L MCV (81.0 - 99.0 FL) 97.9 100.1 H MCH (27.0 - 31.0 PG) 32.6 H 32.5 H RDW (11.5 - 14.5 %) 14.5 14.9 H Plt Count (130 - 400 /CUMM) 187 173 MPV (7.4 - 10.4 FL) 7.7 8.1 Gran % (42.2 - 75.2 %) 82.0 H 73.8 Lymphocytes % (20.5 - 51.1 %) 12.3 L 18.2 L Monocytes % (1.7 - 9.3 %) 4.3 6.5 Eosinophils % (0 - 5 %) 1.2 1.4 Basophils % (0.0 - 2.0 %) 0.2 0.1 Absolute Granulocytes (1.4 - 6.5 /CUMM) 5.9 5.5 Absolute Lymphocytes (1.2 - 3.4 /CUMM) 0.9 L 1.4 Absolute Monocytes (0.10 - 0.60 /CUMM) 0.3 0.5 Absolute Eosinophils (0.0 - 0.7 /CUMM) 0.1 0.1 Absolute Basophils (0.0 - 0.2 /CUMM) 0 0 PUBS MCHC (33.0 - 37.0 G/DL) 33.3 32.5 L / 07/06 07/06 0650 2105 2105 Chemistry Sodium (137 - 145 mmol/L) 142 Potassium (3.5 - 5.1 mmol/L) 4.3 Chloride (98 - 107 mmol/L) 115 H Carbon Dioxide (22 - 30 mmol/L) 19 L Anion Gap (5 - 16) 7 BUN (7 - 17 mg/dL) 10 Creatinine (0.5 - 1.0 mg/dL) 1.0 Estimated GFR (>60 ml/min) 53 L BUN/Creatinine Ratio (7 - 25 %) 10.0 Lactic Acid (0.7 - 2.1 mmol/L) 1.0 Calcium (8.4 - 10.2 mg/dL) 6.8 L Phosphorus (2.5 - 4.5 mg/dL) 2.6 Magnesium (1.6 - 2.3 mg/dL) 1.3 L Urines Urine Color (YEL,AMB,STR) YEL Urine Clarity (CLEAR) HAZY H Urine pH (5.0 - 8.0) 6.0 Ur Specific [place] (1.001 - 1.035) 1.020 Urine Protein (NEG,<30 MG/DL) TRACE H Urine Ketones (NEG) NEG Urine Nitrite (NEG) NEG Urine Bilirubin (NEG) NEG Urine Urobilinogen (0.1 - 1.0 EU/dl) 0.2 Ur Leukocyte Esterase (NEG) MOD H Ur Microscopic SEDIMENT EXAMINED Urine WBC (0 - 2 /HPF) 25-50 H Ur Epithelial Cells (NONE,FEW) MOD H Urine Bacteria (NEG/NONE) FEW H Urine Hemoglobin (NEG) SMALL H Ur Random Creatinine (mg/dL) 96.8 Ur Random Sodium (30 - 90 mmol/L) 19 L Ur Random Potassium (mmol/L) 14.7 Fraction Sodium Excret (<1% %) 0.2 Urine Glucose (N MG/DL) NEG
--- NOTE | 2016-11-04 12:40 | NUR ---
THIS RN DID NOT BEGIN MAG SULFATE INFUSION PT IS SCHEDULED TO GO TO OR AT 1 PM. WILL HANG WHEN PT BACK TO FLOOR.
--- NOTE | 2016-11-04 12:57 | NUR ---
PT TO OR AT 1250 VIA STRETCHER. 1135 FAMOTIDINE NOT GIVEN, NOT UP FROM PHARMACY BEFORE PT TO OR. PT WILL RECIEVE WHEN RETURNS TO FLOOR.
--- NOTE | 2016-11-04 14:09 | RADIOLOGY REPORT ---
EXAMINATION: XR PORTABLE CHEST CLINICAL INFORMATION: Dyspnea. COMPARISON: Earlier the same day. TECHNIQUE: Portable AP semierect view of the chest was obtained. Image is labeled 1:36 PM FINDINGS: Chest is stable appearing with cardiomegaly without development of underlying infiltrate, significant effusion, or pneumothorax. Minimal basilar atelectasis is again suggested. Osseous structures are osteopenic. IMPRESSION: Stable appearing chest x-ray.
[2016-11-04 14:30] VITALS: BP 118/80
--- NOTE | 2016-11-04 16:36 | NUR ---
PT BACK FROM OR 20 MINS AFTER PT WENT DOWN. PER PACU NURSE PT C/O SOB AND NEEDED TO BE PLACED ON 3L. WAS STABLIZED THEN SENT BACK TO FLOOR. SURGERY CANCELLED. PT ARRIVED BACK TO FLOOR SAT 99% ON 2L. DENIES SOB AT THIS TIME. DENIES PAIN, C/O HUNGER. CONTACTED TO ORDER DIET. WILL MONITOR.
[2016-11-04 21:52] VITALS: BP 122/65
--- NOTE | 2016-11-05 04:39 | PN- Housestaff ---
See Addendum Subjective Follow-up For: Left foot pain, electrolyte abnormalities Subjective: No overnight events. She is still in pain this morning, in her right leg. The IV sticks also hurt her a lot. Her breathing has been ok. She is upset that she has been here for a long time and "nothing" has been done. Review of Systems Constitutional: Denies: no symptoms. Cardiovascular: Denies: no symptoms. Respiratory: Denies: no symptoms. Gastrointestinal: Denies: no symptoms. Genitourinary: Denies: no symptoms. Musculoskeletal: Reports: see HPI. Objective Last 24 Hrs of Vital Signs/I&O Vital Signs Date Time Temp Pulse Resp B/P B/P Pulse O2 O2 Flow FiO2 Mean Ox Delivery Rate 11/04 2152 97.7 77 19 122/65 96 11/04 1600 Nasal 2.0L Cannula 11/04 1430 98.2 67 18 118/80 97 Nasal 2.0L Cannula 11/04 0800 Nasal 1.0L Cannula 11/04 0653 98.3 82 20 108/60 91 Room Air Intake & Output 11/05 0800 11/05 0000 11/04 1600 Intake Total 680 110 Output Total 402 300 Balance 278 -190 Intake, IV 200 100 Intake, Oral 480 10 Output, Stool 2 Output, Urine 400 300 Patient 178 lb Weight Physical Exam General Appearance: Alert, Oriented X3, Cooperative, Mild Distress Cardiovascular: Regular Rate, Normal S1, Normal S2 Lungs: Clear to Auscultation Abdomen: Soft, hernia Extremities: No DP pulses bialterally Current Medications: Current Medications Sig/Abundio Start time Last Medication Dose Route Stop Time Status Admin Acetaminophen 650 MG .STK-MED ONE 11/04 0903 DC PO 11/04 0904 Acetaminophen 650 MG Q6P PRN 10/31 2130 AC 11/04 PO 0909 Acetaminophen/ 1 TAB Q4P PRN 11/04 1200 AC Hydrocodone Bitart PO Acetaminophen/ 1 TAB Q6P PRN 10/31 2130 DC 11/04 Hydrocodone Bitart PO 0515 Atorvastatin Calcium 20 MG 1700 11/01 1700 AC 11/04 PO 1700 Calcitriol 0.25 MCG DAILY 11/02 1500 AC 11/04 PO 0909 Calcium Carbonate 1,250 MG BID 11/03 2200 AC 11/04 PO 2239 Dextrose/Sodium 1,000 ML Q13H 11/04 0200 DC 11/04 Chloride IV 11/04 1159 0151 Diltiazem HCl 240 MG AT BEDTIME 11/01 2200 AC 11/04 PO 2239 Ergocalciferol 50,000 IU ONCE A WEEK 11/02 1000 AC 11/02 PO 12/21 1001 1126 Famotidine 20 MG DAILY 11/04 1136 AC PO Hydromorphone HCl 1 MG Q6P PRN 10/31 2130 AC 11/05 IV 0351 Insulin Aspart 0 TIDAC 11/04 1700 AC SC Insulin Human Regular 1 UNITS .STK-MED ONE 11/04 0619 DC IV 11/04 0620 Insulin Human Regular 0 Q6 11/03 2359 DC 11/04 SC 0619 Magnesium Sulfate 1 GM Q2H 11/04 1145 DC 11/04 Dextrose/Water 100 ML IV 11/04 1544 2115 Omeprazole 40 MG DAILY AC 11/01 0700 DC 11/04 PO 0619 Last 24 Hrs of Lab/Carlos Results Last 24 Hrs of Labs/Mics: Laboratory Tests 11/04/16 1050: CBC w Diff NO MAN DIFF REQ, RBC 2.35 L, MCV 97.9, MCH 32.6 H, RDW 14.5, MPV 7.7, Gran % 82.0 H, Lymphocytes % 12.3 L, Monocytes % 4.3, Eosinophils % 1.2, Basophils % 0.2, Absolute Granulocytes 5.9, Absolute Lymphocytes 0.9 L, Absolute Monocytes 0.3, Absolute Eosinophils 0.1, Absolute Basophils 0, PUBS MCHC 33.3 11/04/16 0715: CBC w Diff NO MAN DIFF REQ, RBC 2.29 L, MCV 100.1 H, MCH 32.5 H, RDW 14.9 H, MPV 8.1, Gran % 73.8, Lymphocytes % 18.2 L, Monocytes % 6.5, Eosinophils % 1.4, Basophils % 0.1, Absolute Granulocytes 5.5, Absolute Lymphocytes 1.4, Absolute Monocytes 0.5, Absolute Eosinophils 0.1, Absolute Basophils 0, PUBS MCHC 32.5 L 11/04/16 0650: Anion Gap 7, Estimated GFR 53 L, BUN/Creatinine Ratio 10.0, Lactic Acid 1.0, Calcium 6.8 L, Phosphorus 2.6, Magnesium 1.3 L Assessment/Plan Assessment: 80-year-old female with history of 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 However it may also be claudication. When she arrived she had an MISTY that has since resolved with hydration and her creatinine is now 1.0. She likely had a metformin induced lactic acidosis. Her lactic acid has come down from 8.7 on October 31 to 1.0 on November 04. Her other electrolytes have continued to improve. I called her PCP, Dr. Rosario, on 11/03/2016 and confirmed a superficial wound culture that grew Pseudomonas. It was taken the day of admission. Because it was a superficial wound culture and she does not show signs of infection this is likely a contaminant. On 11/04/2016, she was supposed to go for an angiogram. However when she went down for the procedure she started experiencing shortness of breath with crackles on exam. Because of this she was unable to receive angiogram. Unfortunately the vascular surgeon will not be able to perform this until Monday now. Chest x-ray did not show any effusion or infiltrate. She was given Lasix and her dyspnea improved. #Dyspnea: This has improved s/p lasix. She feels like she is breathing better, though she is still on oxygen. -Monitor vitals. If she becomes tachycardic or hypoxic consider CTA -Oxygen therapy -Consider Lasix if she seems overloaded #Left lower extremity pain: The vascular surgeon will perform the angiogram on Monday. We will continue to monitor for signs of infection. Cultures no growth so far. Her pain is quite severe. -Continue to monitor off antibiotics. 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 Recently increased lasix dose, but likely not the cause of her issues. This is probably caused by a vitamin D deficiency. With this, she has also been hypocalcemic and hypomagnesic. -Replete vitamin D 20701Y Qweekly -Calcitrol 0.25 g by mouth daily -Calcium carbonate 1250 mg by mouth twice a day -Endocrine, nephrology consult -Replete magnesium with IV and by mouth magnesium #Normocytic anemia. Her hemoglobin has been slowly declining. Hemoglobin 7.7 on 11/04/2016. Most likely anemia of chronic disease with a low TIBC and normal iron and normal ferritin. We will monitor for blood loss. -Daily CBCs #Hypotension: Her pressures have be good lately. -Monitor BP MISTY. Creatinine around 1.0. Resolved. -Holding lasix and lisinopril Chronic and stable conditions Atrial fibrillation: continue eliquis 2.5mg BID and diltiazem 240mg at bedtime HTN: Holding lisinopril and Lasix in the setting of normotension. Diabetes: Hold metformin; on atorvastatin 20mg- continue Accuchecks with sliding scale GERD: Stop omeprazole. Start an H2 emanuel instead because PPIs can waste magnesium. Pain management with Tylenol mild/Dilaudid IV Q6 PRN Diabetic diet DVT prophylaxis On Eliquis Code status full code Problem List: 1. Left foot pain Pain Ratin Pain Location: Left foot Pain Goal: Remain pain free Pain Plan: Dilaudid Tomorrow's Labs & Rationales: CBC, BEP, Mg, phos, ca
[2016-11-05 06:49] VITALS: BP 110/60
[2016-11-05 08:41] LABS: ABSOLUTE BASOPHIL COUNT 0 /CUMM (0.0-0.2); ABSOLUTE EOSINOPHIL COUNT 0.1 /CUMM (0.0-0.7); ABSOLUTE GRANULOCYTE CT 6.8 /CUMM (1.4-6.5); ABSOLUTE LYMPH COUNT 1.1 /CUMM (1.2-3.4); ABSOLUTE MONOCYTE COUNT 0.5 /CUMM (0.10-0.60); BASOPHIL % 0.3 % (0.0-2.0); EOSINOPHIL % 0.8 % (0-5); GRANULOCYTE % 79.7 % (42.2-75.2); HEMATOCRIT 27.7 % (37-47); MEAN CORPUSCULAR HGB 32.5 PG (27.0-31.0); MEAN CORPUSCULAR HGB CONC 32.7 G/DL (33.0-37.0); MEAN CORPUSCULAR VOLUME 99.4 FL (81.0-99.0); MEAN PLATELET VOLUME 8.2 FL (7.4-10.4); PLATELET COUNT 187 /CUMM (130-400); RBC DISTRIBUTION WIDTH 14.7 % (11.5-14.5); RED BLOOD CELL CT 2.78 /CUMM (4.20-5.40); WHITE BLOOD CELL COUNT 8.6 /CUMM (4.8-10.8)
--- NOTE | 2016-11-05 13:20 | PN- Endocrinology ---
Assessment/Plan Assessment: 80 year old female with PMH of Afib on eliquis, 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 Her BP has improved. Patient was found to have severe hypocalcemia, vitamin D deficiency and secondary hyperparathyroidism. She was put on vitamin d2 50,000 units once a week, calcitriol 0.25 mcg daily and calcium carbonate 1250 mg ( elemental calcium 500 mg) x 3 times a day Repeat am lab showed calcium 6.8, Mg 1.3, albumin 2.2 and phos 2.6 ( corrected calcium 8.2). Calcium carbonate was decreased to 1250 mg twice a day. Repeat lab this morning showed calcium 7.6, phos 3.0 and Mg 1.9. Plan: Her calcium level is improving; 1. continue vitamin D2 50,000 units once a week; 2. continue calcium carbonate 1250 mg twice a day; 3. stop calcitriol 0.25 mcg daily for now; 4. continue monitoring calcium, albumin. will follow. Subjective Subjective: She has no special complaints this morning. Objective Last 24 Hrs of Vital Signs/I&O Vital Signs Date Time Temp Pulse Resp B/P B/P Pulse O2 O2 Flow FiO2 Mean Ox Delivery Rate 11/06 799 Nasal 2.0L Cannula 11/05 0649 97.4 79 20 110/60 97 Nasal Cannula 11/05 0000 96 Nasal 2.0L Cannula 11/04 2152 97.7 77 19 122/65 96 11/04 1600 Nasal 2.0L Cannula 11/04 1430 98.2 67 18 118/80 97 Nasal 2.0L Cannula Intake & Output 11/05 1600 11/05 0811/05 0000 Intake Total 680 Output Total 100 402 Balance -100 278 Intake, IV 200 Intake, Oral 480 Output, Stool 2 Output, Urine 100 400 Patient 183 lb Weight Weight Chair scale Measurement Method Results Pertinent Lab/Carlos Results: Laboratory Tests 11/05 06 Chemistry Sodium (137 - 145 mmol/L) 142 Potassium (3.5 - 5.1 mmol/L) 4.6 Chloride (98 - 107 mmol/L) 115 H Carbon Dioxide (22 - 30 mmol/L) 19 L Anion Gap (5 - 16) 7 BUN (7 - 17 mg/dL) 11 Creatinine (0.5 - 1.0 mg/dL) 1.1 H Estimated GFR (>60 ml/min) 48 L BUN/Creatinine Ratio (7 - 25 %) 10.0 Calcium (8.4 - 10.2 mg/dL) 7.6 L Phosphorus (2.5 - 4.5 mg/dL) 3.0 Magnesium (1.6 - 2.3 mg/dL) 1.9 Hematology CBC w Diff NO MAN DIFF REQ WBC (4.8 - 10.8 /CUMM) 8.6 RBC (4.20 - 5.40 /CUMM) 2.78 L Hgb (12.0 - 16.0 G/DL) 9.1 L Hct (37 - 47 %) 27.7 L MCV (81.0 - 99.0 FL) 99.4 H MCH (27.0 - 31.0 PG) 32.5 H RDW (11.5 - 14.5 %) 14.7 H Plt Count (130 - 400 /CUMM) 187 MPV (7.4 - 10.4 FL) 8.2 Gran % (42.2 - 75.2 %) 79.7 H Lymphocytes % (20.5 - 51.1 %) 13.4 L Monocytes % (1.7 - 9.3 %) 5.8 Eosinophils % (0 - 5 %) 0.8 Basophils % (0.0 - 2.0 %) 0.3 Absolute Granulocytes (1.4 - 6.5 /CUMM) 6.8 H Absolute Lymphocytes (1.2 - 3.4 /CUMM) 1.1 L Absolute Monocytes (0.10 - 0.60 /CUMM) 0.5 Absolute Eosinophils (0.0 - 0.7 /CUMM) 0.1 Absolute Basophils (0.0 - 0.2 /CUMM) 0 PUBS MCHC (33.0 - 37.0 G/DL) 32.7 L
[2016-11-05 14:06] VITALS: BP 102/70
[2016-11-05 22:33] VITALS: BP 100/60
[2016-11-06 06:35] VITALS: BP 100/60
[2016-11-06 08:05] LABS: ABSOLUTE BASOPHIL COUNT 0 /CUMM (0.0-0.2); ABSOLUTE EOSINOPHIL COUNT 0.1 /CUMM (0.0-0.7); ABSOLUTE GRANULOCYTE CT 5.8 /CUMM (1.4-6.5); ABSOLUTE LYMPH COUNT 0.9 /CUMM (1.2-3.4); ABSOLUTE MONOCYTE COUNT 0.5 /CUMM (0.10-0.60); BASOPHIL % 0.2 % (0.0-2.0); EOSINOPHIL % 1.1 % (0-5); GRANULOCYTE % 79.2 % (42.2-75.2); HEMATOCRIT 23.6 % (37-47); MEAN CORPUSCULAR HGB 32.6 PG (27.0-31.0); MEAN CORPUSCULAR HGB CONC 32.6 G/DL (33.0-37.0); MEAN CORPUSCULAR VOLUME 100.1 FL (81.0-99.0); MEAN PLATELET VOLUME 8.1 FL (7.4-10.4); PLATELET COUNT 190 /CUMM (130-400); RBC DISTRIBUTION WIDTH 14.5 % (11.5-14.5); RED BLOOD CELL CT 2.36 /CUMM (4.20-5.40); WHITE BLOOD CELL COUNT 7.3 /CUMM (4.8-10.8)
--- NOTE | 2016-11-06 08:33 | PN- Housestaff ---
Subjective Follow-up For: Left foot pain, electrolyte abnormalities Subjective: No overnight events. She still complains of pain in her right leg. Otherwise stable. Denies any overnight events. Review of Systems Constitutional: Denies: see HPI. Objective Last 24 Hrs of Vital Signs/I&O Vital Signs Date Time Temp Pulse Resp B/P B/P Pulse O2 O2 Flow FiO2 Mean Ox Delivery Rate 11/06 1600 Nasal 2.0L Cannula 11/06 1445 98.5 90 20 118/80 99 Nasal 2.0L Cannula 11/06 0800 Nasal 2.0L Cannula 11/06 0635 98.1 78 20 100/60 96 Nasal 2.0L Cannula 11/06 0000 Nasal 2.0L Cannula 11/05 2233 98.0 100 20 100/60 20 Intake & Output 11/06 1600 11/06 0811/06 0000 Intake Total 600 120 160 Output Total 400 450 220 Balance 200 -330 -60 Intake, IV 20 Intake, Oral 600 120 140 Output, Urine 400 450 220 Patient 189 lb Weight Physical Exam General Appearance: Alert, Oriented X3, Cooperative Other Physical Findings: General Appearance: Alert, Oriented X3, Cooperative, Mild Distress Cardiovascular: Regular Rate, Normal S1, Normal S2 Lungs: Clear to Auscultation Abdomen: Soft, hernia Extremities: No DP pulses bialterally Current Medications: Current Medications Sig/Abundio Start time Last Medication Dose Route Stop Time Status Admin Acetaminophen 650 MG Q6P PRN 10/31 2130 AC 11/04 PO 0909 Acetaminophen/ 2 TAB Q4P PRN 11/06 0930 AC 11/06 Hydrocodone Bitart PO 1933 Acetaminophen/ 1 TAB Q4P PRN 11/04 1200 DC 11/06 Hydrocodone Bitart PO 0858 Atorvastatin Calcium 20 MG 1700 11/01 1700 AC 11/06 PO 1700 Calcium Carbonate 650 MG DAILY 11/07 1000 AC PO Calcium Carbonate 1,250 MG BID 11/03 2200 DC 11/06 PO 0900 Diltiazem HCl 240 MG AT BEDTIME 11/01 2200 AC 11/05 PO 2109 Ergocalciferol 50,000 IU ONCE A WEEK 11/02 1000 AC 11/02 PO 12/21 1001 1126 Famotidine 20 MG DAILY 11/04 1136 AC 11/06 PO 0900 Hydromorphone HCl 1 MG Q6P PRN 10/31 2130 AC 11/06 IV 1740 Insulin Aspart 0 TIDAC 11/04 1700 AC 11/06 SC 1218 Magnesium Oxide 800 MG ONCE ONE 11/06 1215 CAN PO 11/06 1216 Magnesium Sulfate 1 GM Q2H 11/06 1245 DC 11/06 Dextrose/Water 100 ML IV 11/06 1644 1740 Last 24 Hrs of Lab/Carlos Results Last 24 Hrs of Labs/Mics: Laboratory Tests 11/06/16 0638: Anion Gap 6, Estimated GFR 53 L, BUN/Creatinine Ratio 11.0, Calcium 7.5 L, Magnesium 1.5 L, Albumin 1.9 L, CBC w Diff NO MAN DIFF REQ, RBC 2.36 L, MCV 100.1 H, MCH 32.6 H, RDW 14.5, MPV 8.1, Gran % 79.2 H, Lymphocytes % 12.4 L, Monocytes % 7.1, Eosinophils % 1.1, Basophils % 0.2, Absolute Granulocytes 5.8, Absolute Lymphocytes 0.9 L, Absolute Monocytes 0.5, Absolute Eosinophils 0.1, Absolute Basophils 0, PUBS MCHC 32.6 L Assessment/Plan Assessment: 80-year-old female with history of 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 However it may also be claudication. When she arrived she had an MISTY that has since resolved with hydration and her creatinine is now 1.0. She likely had a metformin induced lactic acidosis. Her lactic acid has come down from 8.7 on October 31 to 1.0 on November 04. Her other electrolytes have continued to improve. I called her PCP, Dr. Rosario, on 11/03/2016 and confirmed a superficial wound culture that grew Pseudomonas. It was taken the day of admission. Because it was a superficial wound culture and she does not show signs of infection this is likely a contaminant. On 11/04/2016, she was supposed to go for an angiogram. However when she went down for the procedure she started experiencing shortness of breath with crackles on exam. Because of this she was unable to receive angiogram. Unfortunately the vascular surgeon will not be able to perform this until Monday now. Chest x-ray did not show any effusion or infiltrate. She was given Lasix and her dyspnea improved. #Dyspnea: This has improved s/p lasix. She feels like she is breathing better, though she is still on oxygen. -Monitor vitals. If she becomes tachycardic or hypoxic consider CTA -Oxygen therapy -Consider Lasix if she seems overloaded #Left lower extremity pain: The vascular surgeon will perform the angiogram on Monday. We will continue to monitor for signs of infection. Cultures no growth so far. Her pain is quite severe. -Continue to monitor off antibiotics. -Leg elevation -Daily weight and intake output record -ID, podiatry, vascular consults -Leg angiogram on Monday -Vicodin increased to 2 tabs Q4H PRN. 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 Recently increased lasix dose, but likely not the cause of her issues. This is probably caused by a vitamin D deficiency. With this, she has also been hypocalcemic and hypomagnesic. -Replete vitamin D 11519H Qweekly -Calcitrol 0.25 g by mouth daily -Calcium carbonate 1250 mg by mouth twice a day -Endocrine, nephrology consult -Replete magnesium with IV and by mouth magnesium #Normocytic anemia. Her hemoglobin has been slowly declining. Hemoglobin 7.7 on 11/04/2016. Most likely anemia of chronic disease with a low TIBC and normal iron and normal ferritin. We will monitor for blood loss. -Daily CBCs -Check stool guaiac. #Hypotension: Her pressures have be good lately. -Monitor BP MISTY. Creatinine around 1.0. Resolved. -Holding lasix and lisinopril Hypomagnesimeia; -Recieved magnesium intravenously. Will repeat magnesium level in a.m. Chronic and stable conditions Atrial fibrillation: continue eliquis 2.5mg BID and diltiazem 240mg at bedtime HTN: Holding lisinopril and Lasix in the setting of normotension. Diabetes: Hold metformin; on atorvastatin 20mg- continue Accuchecks with sliding scale GERD: Stop omeprazole. Start an H2 emanuel instead because PPIs can waste magnesium. Pain management with Tylenol mild/Dilaudid IV Q6 PRN Diabetic diet DVT prophylaxis On Eliquis. Refused ALPS Code status full code Problem List: 1. Left foot pain 2. Atrial fibrillation, chronic Pain Ratin Pain Location: Left leg/foot Pain Goal: Pain 4 or less Pain Plan: Dilaudid Tomorrow's Labs & Rationales: CBC,BEP, Mg
--- NOTE | 2016-11-06 09:30 | PN- Att Addend ---
Attending Addendum Attending Brief Note Patient seen and examined. Sitting in the chair. Complains of lower extremity pain. She reports suboptimal improvement with use of Vicodin. Nursing staff reports that she gets confuse the use of IV Dilaudid. She remains afebrile. Her pressure remains borderline. No reports of bloody bowel movements. Vital Signs Date Time Temp Pulse Resp B/P B/P Pulse O2 O2 Flow FiO2 Mean Ox Delivery Rate 11/06 0635 98.1 78 20 100/60 96 Nasal 2.0L Cannula 11/06 0000 Nasal 2.0L Cannula 11/05 2233 98.0 100 20 100/60 20 /08 1600 Nasal 2.0L Cannula 11/05 1406 98.0 81 20 102/70 92 Nasal 2.0L Cannula Gen. appearance: Well-developed. Heart: S1-S2 regular Lungs: Good entry bilaterally, clear to auscultation Abdomen: Soft and nontender with normal bowel sounds Extremities: Bilateral lower extremity edema left greater than right Laboratory Tests 11/06/16 0638: Anion Gap 6, Estimated GFR 53 L, BUN/Creatinine Ratio 11.0, Calcium 7.5 L, Magnesium 1.5 L, Albumin 1.9 L, CBC w Diff NO MAN DIFF REQ, RBC 2.36 L, MCV 100.1 H, MCH 32.6 H, RDW 14.5, MPV 8.1, Gran % 79.2 H, Lymphocytes % 12.4 L, Monocytes % 7.1, Eosinophils % 1.1, Basophils % 0.2, Absolute Granulocytes 5.8, Absolute Lymphocytes 0.9 L, Absolute Monocytes 0.5, Absolute Eosinophils 0.1, Absolute Basophils 0, PUBS MCHC 32.6 L Problems: 1. Left lower extremity pain. 2. Hypocalcemia with secondary hyperparathyroidism. 3. Hypomagnesemia. 4. Anemia. 5. Borderline hypotension. 6. Atrial fibrillation Plan: -She is scheduled for lower extremity angiogram this week. -Optimize pain control by increasing Vicodin to 2 tablets every 4 hours. -Supplement magnesium levels intravenously. Repeat magnesium level in a.m. -Hemoglobin level is 7.7 today. Patient has been running hemoglobin levels around 7 in the past few days. She did present with hemoglobin level of 9.4 on admission. Check stool guaiac. -Anticoagulation is on hold for her angiogram study. -Continue diltiazem for rate control. Monitor blood pressure closely as her blood pressure is borderline on this medication. -Endocrinology follow-up appreciated.
--- NOTE | 2016-11-06 12:22 | PN- Endocrinology ---
Assessment/Plan Assessment: 80 year old female with PMH of Afib on eliquis, 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 Her BP has improved. Patient was found to have severe hypocalcemia, vitamin D deficiency and secondary hyperparathyroidism. She was put on vitamin d2 50,000 units once a week, calcitriol 0.25 mcg daily and calcium carbonate 1250 mg ( elemental calcium 500 mg) x 3 times a day Repeat am lab showed calcium 6.8, Mg 1.3, albumin 2.2 and phos 2.6 ( corrected calcium 8.2). Calcium carbonate was decreased to 1250 mg twice a day. Repeat lab this morning showed calcium 7.5, albumin 1.9 and Mg 1.5. Corrected calcium is 9.2. with regards to DM, she is on Novolog coverage. Her FSGs were 132, 164, 216, 140 and 127. Plan: 1. decrease calcium supplement to 1250 mg daily; 2. continue the current vitamin D supplement; 3. replete Mg; 4. continue the current Novolog coverage. will follow. Subjective Subjective: she complains of having left shoulder pain. Objective Last 24 Hrs of Vital Signs/I&O Vital Signs Date Time Temp Pulse Resp B/P B/P Pulse O2 O2 Flow FiO2 Mean Ox Delivery Rate 11/06 0635 98.1 78 20 100/60 96 Nasal 2.0L Cannula 11/06 0000 Nasal 2.0L Cannula 11/05 2233 98.0 100 20 100/60 20 08 1600 Nasal 2.0L Cannula 11/05 1406 98.0 81 20 102/70 92 Nasal 2.0L Cannula Intake & Output 11/06 1600 11/06 0800 11/06 0000 Intake Total 120 160 Output Total 450 220 Balance -330 -60 Intake, IV 20 Intake, Oral 120 140 Output, Urine 450 220 Patient 189 lb Weight Results Pertinent Lab/Carlos Results: Laboratory Tests 11/06 637 Chemistry Sodium (137 - 145 mmol/L) 139 Potassium (3.5 - 5.1 mmol/L) 4.2 Chloride (98 - 107 mmol/L) 113 H Carbon Dioxide (22 - 30 mmol/L) 21 L Anion Gap (5 - 16) 6 BUN (7 - 17 mg/dL) 11 Creatinine (0.5 - 1.0 mg/dL) 1.0 Estimated GFR (>60 ml/min) 53 L BUN/Creatinine Ratio (7 - 25 %) 11.0 Calcium (8.4 - 10.2 mg/dL) 7.5 L Magnesium (1.6 - 2.3 mg/dL) 1.5 L Albumin (3.5 - 5.0 g/dL) 1.9 L Hematology CBC w Diff NO MAN DIFF REQ WBC (4.8 - 10.8 /CUMM) 7.3 RBC (4.20 - 5.40 /CUMM) 2.36 L Hgb (12.0 - 16.0 G/DL) 7.7 L Hct (37 - 47 %) 23.6 L MCV (81.0 - 99.0 FL) 100.1 H MCH (27.0 - 31.0 PG) 32.6 H RDW (11.5 - 14.5 %) 14.5 Plt Count (130 - 400 /CUMM) 190 MPV (7.4 - 10.4 FL) 8.1 Gran % (42.2 - 75.2 %) 79.2 H Lymphocytes % (20.5 - 51.1 %) 12.4 L Monocytes % (1.7 - 9.3 %) 7.1 Eosinophils % (0 - 5 %) 1.1 Basophils % (0.0 - 2.0 %) 0.2 Absolute Granulocytes (1.4 - 6.5 /CUMM) 5.8 Absolute Lymphocytes (1.2 - 3.4 /CUMM) 0.9 L Absolute Monocytes (0.10 - 0.60 /CUMM) 0.5 Absolute Eosinophils (0.0 - 0.7 /CUMM) 0.1 Absolute Basophils (0.0 - 0.2 /CUMM) 0 PUBS MCHC (33.0 - 37.0 G/DL) 32.6 L
[2016-11-06 14:45] VITALS: BP 118/80
[2016-11-06 21:58] VITALS: BP 100/60
[2016-11-07 06:48] VITALS: BP 102/58
--- NOTE | 2016-11-07 07:04 | PN- Housestaff ---
See Addendum Subjective Follow-up For: Left foot pain, electrolyte abnormalities Subjective: She is feeling okay this morning. She is still having a lot of pain in her legs. She is now also complaining of itchiness all over her body. She said she had this once before a couple months ago. Her breathing is doing well. She had an episode a few nights ago where she had some shortness of breath. Otherwise she really wants to have the angiogram tomorrow. Review of Systems Constitutional: Reports: see HPI. Cardiovascular: Denies: no symptoms. Respiratory: Denies: no symptoms. Gastrointestinal: Denies: no symptoms. Genitourinary: Denies: no symptoms. Musculoskeletal: Reports: see HPI. Skin: Reports: see HPI. Objective Last 24 Hrs of Vital Signs/I&O Vital Signs Date Time Temp Pulse Resp B/P B/P Pulse O2 O2 Flow FiO2 Mean Ox Delivery Rate 11/07 0648 98.1 96 16 102/58 94 / 0000 Nasal 2.0L Cannula 11/06 2158 98.4 98 18 100/60 100 Nasal 2.0L Cannula 11/06 1600 Nasal 2.0L Cannula 11/06 1445 98.5 90 20 118/80 99 Nasal 2.0L Cannula Intake & Output 11/07 1600 11/07 0800 11/07 0000 Intake Total 360 630 Output Total 150 150 Balance 210 480 Intake, IV 130 Intake, Oral 360 500 Output, Urine 150 150 Physical Exam General Appearance: Alert, Oriented X3, Cooperative, No Acute Distress Cardiovascular: irregularly irregular, murmur Lungs: Clear to Auscultation Abdomen: Normal Bowel Sounds, Soft, large mass/hernia Extremities: both legs are hard. Pulses are not felt Current Medications: Current Medications Sig/Abundio Start time Last Medication Dose Route Stop Time Status Admin Acetaminophen 650 MG Q6P PRN 10/31 2130 AC 11/04 PO 0909 Acetaminophen/ 2 TAB Q4P PRN 11/06 0930 AC 11/07 Hydrocodone Bitart PO 0606 Acetaminophen/ 1 TAB Q4P PRN 11/04 1200 DC 11/06 Hydrocodone Bitart PO 0858 Atorvastatin Calcium 20 MG 1700 / 1700 AC 11/06 PO 1700 Calcium Carbonate 650 MG DAILY 11/07 1000 AC PO Calcium Carbonate 1,250 MG BID 11/03 2200 DC 11/06 PO 0900 Diltiazem HCl 240 MG AT BEDTIME 11/01 2200 AC 11/06 PO 2130 Diphenhydramine HCl 25 MG ONCE ONE 11/07 0730 DC PO 11/07 0731 Diphenhydramine HCl 25 MG ONCE ONE 11/07 0415 DC 11/07 PO 11/07 0416 0431 Ergocalciferol 50,000 IU ONCE A WEEK 11/02 1000 AC 11/02 PO 12/21 1001 1126 Famotidine 20 MG DAILY 11/04 1136 AC 11/06 PO 0900 Hydromorphone HCl 1 MG Q6P PRN 10/31 2130 AC 11/07 IV 0405 Insulin Aspart 0 TIDAC 11/04 1700 AC 11/06 SC 1218 Magnesium Oxide 800 MG ONCE ONE 11/06 1215 CAN PO 11/06 1216 Magnesium Sulfate 1 GM Q2H 11/06 1245 DC 11/06 Dextrose/Water 100 ML IV 11/06 1644 1740 Assessment/Plan Assessment: 80-year-old female with history of 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 However it may also be claudication. When she arrived she had an MISTY that has since resolved with hydration and her creatinine is now 1.0. She likely had a metformin induced lactic acidosis. Her lactic acid has come down from 8.7 on October 31 to 1.0 on November 04. Her other electrolytes have continued to improve. I called her PCP, Dr. Rosario, on 11/03/2016 and confirmed a superficial wound culture that grew Pseudomonas. It was taken the day of admission. Because it was a superficial wound culture and she does not show signs of infection this is likely a contaminant. On 11/04/2016, she was supposed to go for an angiogram. However when she went down for the procedure she started experiencing shortness of breath with crackles on exam. Because of this she was unable to receive angiogram. Unfortunately the vascular surgeon will not be able to perform this until Monday now. Chest x-ray did not show any effusion or infiltrate. She was given Lasix and her dyspnea improved. #Left lower extremity pain: The vascular surgeon will perform the angiogram on Monday. We will continue to monitor for signs of infection. Cultures no growth so far. Her pain is quite severe. -Continue to monitor off antibiotics. -Leg elevation -Daily weight and intake output record -ID, podiatry, vascular consults -Leg angiogram on Monday -Vicodin increased to 2 tabs Q4H PRN. -hold eliquid and nothing by mouth after midnight for angiogram tomorrow #Dyspnea: This has improved s/p lasix. She feels like she is breathing better, though she is still on oxygen. -Monitor vitals. If she becomes tachycardic or hypoxic consider CTA -Oxygen therapy -Consider Lasix if she seems overloaded -Cardiology/pulmonology clearance for angiogram tomorrow #Itchiness: she is complaining of some generalized itchiness that moves around her body currently located in her back. There is no rash. This is likely a side effect of the Vicodin versus xerosis. She received some Benadryl with good effect. 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 Recently increased lasix dose, but likely not the cause of her issues. This is probably caused by a vitamin D deficiency. With this, she has also been hypocalcemic and hypomagnesic. -Replete vitamin D [id number] Qweekly -Calcitrol 0.25 g by mouth daily -Decreased to Calcium carbonate 1250 mg by mouth daily -Endocrine, nephrology consult -Replete magnesium with IV and by mouth magnesium #Macrocytic (MCV 100.1 today) anemia. Her hemoglobin has been vacillating. It was 9.1 on November 05 and yesterday was 7.7. We'll follow up what it is today. Most likely anemia of chronic disease with a low TIBC and normal iron and normal ferritin. Her vitamin B12 was normal. We will monitor for blood loss. -Daily CBCs -f/u stool guaiac. #Hypotension: Her pressures have be good lately. -Monitor BP MISTY. Creatinine around 1.0. Resolved. -Holding lasix and lisinopril Hypomagnesimeia; she received 2 bags of magnesium IV yesterday. -Follow up magnesium level today. Chronic and stable conditions Atrial fibrillation: continue eliquis 2.5mg BID and diltiazem 240mg at bedtime HTN: Holding lisinopril and Lasix in the setting of normotension. Diabetes: Hold metformin; on atorvastatin 20mg- continue Accuchecks with sliding scale GERD: Stop omeprazole. Start an H2 emanuel instead because PPIs can waste magnesium. Pain management with Tylenol mild/Dilaudid IV Q6 PRN Diabetic diet DVT prophylaxis On Eliquis. Refused ALPS Code status full code Problem List: 1. Hypocalcemia 2. Left foot pain 3. Atrial fibrillation, chronic Pain Ratin Pain Location: Left foot Pain Goal: Remain pain free Pain Plan: see A/P Tomorrow's Labs & Rationales: CBC, BEP, Ca, Mg
[2016-11-07 10:59] LABS: ABSOLUTE BASOPHIL COUNT 0 /CUMM (0.0-0.2); ABSOLUTE EOSINOPHIL COUNT 0.1 /CUMM (0.0-0.7); ABSOLUTE GRANULOCYTE CT 4.2 /CUMM (1.4-6.5); ABSOLUTE LYMPH COUNT 1.3 /CUMM (1.2-3.4); ABSOLUTE MONOCYTE COUNT 0.5 /CUMM (0.10-0.60); BASOPHIL % 0.5 % (0.0-2.0); EOSINOPHIL % 1.6 % (0-5); GRANULOCYTE % 68.5 % (42.2-75.2); HEMATOCRIT 25.2 % (37-47); MEAN CORPUSCULAR HGB 33.1 PG (27.0-31.0); MEAN CORPUSCULAR HGB CONC 33.1 G/DL (33.0-37.0); MEAN CORPUSCULAR VOLUME 100.1 FL (81.0-99.0); MEAN PLATELET VOLUME 8.1 FL (7.4-10.4); PLATELET COUNT 211 /CUMM (130-400); RBC DISTRIBUTION WIDTH 14.9 % (11.5-14.5); RED BLOOD CELL CT 2.52 /CUMM (4.20-5.40); WHITE BLOOD CELL COUNT 6.2 /CUMM (4.8-10.8)
--- NOTE | 2016-11-07 12:14 | PN- Endocrinology ---
Assessment/Plan Assessment: 80 year old female with PMH of Afib on eliquis, 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 Her BP has improved. Patient was found to have severe hypocalcemia, vitamin D deficiency and secondary hyperparathyroidism. She was put on vitamin d2 50,000 units once a week, calcitriol 0.25 mcg daily and calcium carbonate 1250 mg ( elemental calcium 500 mg) x 3 times a day Repeat am lab showed calcium 6.8, Mg 1.3, albumin 2.2 and phos 2.6 ( corrected calcium 8.2). Calcium carbonate was decreased to 1250 mg twice a day. Repeat lab this morning showed calcium 7.5, albumin 1.9 and Mg 1.5. Corrected calcium is 9.2. Calcium carbonate was decreased to 1250 mg daily. with regards to DM, she is on Novolog coverage. Her FSGs were 127, 172, 145, 138 and 129. Plan: 1. continue calcium carbonate 1250 mg daily; 2. continue the current vitamin D supplement; 3. continue the current Novolog coverage. will follow. Subjective Subjective: She feels okay this morning. Objective Last 24 Hrs of Vital Signs/I&O Vital Signs Date Time Temp Pulse Resp B/P B/P Pulse O2 O2 Flow FiO2 Mean Ox Delivery Rate 11/07 0648 98.1 96 16 102/58 94 11/07 0000 Nasal 2.0L Cannula 11/06 2158 98.4 98 18 100/60 100 Nasal 2.0L Cannula 11/06 1600 Nasal 2.0L Cannula 11/06 1445 98.5 90 20 118/80 99 Nasal 2.0L Cannula Intake & Output 11/07 1600 11/07 0800 11/07 0000 Intake Total 360 630 Output Total 400 150 150 Balance -400 210 480 Intake, IV 130 Intake, Oral 360 500 Output, Urine 400 150 150 Patient 192 lb Weight Results Pertinent Lab/Carlos Results: Laboratory Tests 11/07 1017 Chemistry Sodium (137 - 145 mmol/L) 138 Potassium (3.5 - 5.1 mmol/L) 4.9 Chloride (98 - 107 mmol/L) 113 H Carbon Dioxide (22 - 30 mmol/L) 19 L Anion Gap (5 - 16) 6 BUN (7 - 17 mg/dL) 14 Creatinine (0.5 - 1.0 mg/dL) 1.3 H Estimated GFR (>60 ml/min) Pending BUN/Creatinine Ratio (7 - 25 %) 10.8 Magnesium (1.6 - 2.3 mg/dL) 1.7 Hematology CBC w Diff NO MAN DIFF REQ WBC (4.8 - 10.8 /CUMM) 6.2 RBC (4.20 - 5.40 /CUMM) 2.52 L Hgb (12.0 - 16.0 G/DL) 8.3 L Hct (37 - 47 %) 25.2 L MCV (81.0 - 99.0 FL) 100.1 H MCH (27.0 - 31.0 PG) 33.1 H RDW (11.5 - 14.5 %) 14.9 H Plt Count (130 - 400 /CUMM) 211 MPV (7.4 - 10.4 FL) 8.1 Gran % (42.2 - 75.2 %) 68.5 Lymphocytes % (20.5 - 51.1 %) 20.8 Monocytes % (1.7 - 9.3 %) 8.6 Eosinophils % (0 - 5 %) 1.6 Basophils % (0.0 - 2.0 %) 0.5 Absolute Granulocytes (1.4 - 6.5 /CUMM) 4.2 Absolute Lymphocytes (1.2 - 3.4 /CUMM) 1.3 Absolute Monocytes (0.10 - 0.60 /CUMM) 0.5 Absolute Eosinophils (0.0 - 0.7 /CUMM) 0.1 Absolute Basophils (0.0 - 0.2 /CUMM) 0 PUBS MCHC (33.0 - 37.0 G/DL) 33.1
[2016-11-07 14:26] VITALS: BP 130/80
--- NOTE | 2016-11-07 15:15 | PN- Vascular Surgery ---
Surgical Brief Attending Note Brief Attending Note: Patient is tentatively on the OR schedule for tomorrow 11/08 for left leg angio if ok from [facility]. Thank you
--- NOTE | 2016-11-07 15:22 | PN- Infect Dx ---
Subjective Subjective: Afebrile. She feels improved today though still reports pain in both feet. Objective Last 24 Hrs of Vital Signs/I&O Vital Signs Date Time Temp Pulse Resp B/P B/P Pulse O2 O2 Flow FiO2 Mean Ox Delivery Rate 11/07 1426 98.2 69 20 130/80 98 Nasal 2.0L Cannula 11/07 1349 Nasal 2.0L Cannula 11/07 0800 99 Nasal 2.0L Cannula 11/07 0648 98.1 96 16 102/58 94 11/07 0000 Nasal 2.0L Cannula 11/06 2158 98.4 98 18 100/60 100 Nasal 2.0L Cannula 11/06 1600 Nasal 2.0L Cannula Intake & Output 11/07 1600 11/07 0800 11/07 0000 Intake Total 360 630 Output Total 800 150 150 Balance -800 210 480 Intake, IV 130 Intake, Oral 360 500 Output, Urine 800 150 150 Patient 192 lb Weight Physical Exam Other Physical Findings: She appears comfortable in no acute distress Extremities left foot dressing intact; right foot with lateral ulcer with no surrounding inflammation Results Last 24 Hours of Lab Results: Laboratory Tests 11/07 1017 Chemistry Sodium (137 - 145 mmol/L) 138 Potassium (3.5 - 5.1 mmol/L) 4.9 Chloride (98 - 107 mmol/L) 113 H Carbon Dioxide (22 - 30 mmol/L) 19 L Anion Gap (5 - 16) 6 BUN (7 - 17 mg/dL) 14 Creatinine (0.5 - 1.0 mg/dL) 1.3 H Estimated GFR (>60 ml/min) 39 L BUN/Creatinine Ratio (7 - 25 %) 10.8 Magnesium (1.6 - 2.3 mg/dL) 1.7 Hematology CBC w Diff NO MAN DIFF REQ WBC (4.8 - 10.8 /CUMM) 6.2 RBC (4.20 - 5.40 /CUMM) 2.52 L Hgb (12.0 - 16.0 G/DL) 8.3 L Hct (37 - 47 %) 25.2 L MCV (81.0 - 99.0 FL) 100.1 H MCH (27.0 - 31.0 PG) 33.1 H RDW (11.5 - 14.5 %) 14.9 H Plt Count (130 - 400 /CUMM) 211 MPV (7.4 - 10.4 FL) 8.1 Gran % (42.2 - 75.2 %) 68.5 Lymphocytes % (20.5 - 51.1 %) 20.8 Monocytes % (1.7 - 9.3 %) 8.6 Eosinophils % (0 - 5 %) 1.6 Basophils % (0.0 - 2.0 %) 0.5 Absolute Granulocytes (1.4 - 6.5 /CUMM) 4.2 Absolute Lymphocytes (1.2 - 3.4 /CUMM) 1.3 Absolute Monocytes (0.10 - 0.60 /CUMM) 0.5 Absolute Eosinophils (0.0 - 0.7 /CUMM) 0.1 Absolute Basophils (0.0 - 0.2 /CUMM) 0 PUBS MCHC (33.0 - 37.0 G/DL) 33.1 Last 24 Hours of Carlos Results: No recent cultures Assessment/Plan Impression: Stable off antibiotics with temperatures and white blood cell count remaining normal. Her pain appears to be under control and is most likely ischemic in nature, with a possible neuropathic component as well. She is tentatively scheduled for a left leg angiogram in the a.m. Suggestion: 1. Await left leg angiogram in the a.m. 2. Continue to follow off antibiotics Will no longer follow at this time, but please call with any questions
--- NOTE | 2016-11-07 17:27 | Cons- Cardiology ---
General Information and HPI Consulting Request Date of Consult: 11/07/16 Requested By: KELLY ARAUZ MD Reason for Consult: Acute shortness of breath. Source of Information: patient, old records Exam Limitations: physical impairment (hearing loss) History of Present Illness: Mrs. Kristen Gonzalez is 89-year-old female with a history of obesity, remote tobacco use, hypertension, dyslipidemia, diabetes mellitus with neuropathy, suspected chronic kidney disease, chronic anemia, and atrial fibrillation for which she is on the factor Xa antagonist apixaban who presented to the ED after her OP furosemide had been increased from 20 mg to 40 mg daily with hypotension, metabolic acidosis possibly secondary to metformin 10/31, hypocalcemia, hypomagnesemia, vitamin D deficiency with suspected hyperparathyroidism, and bilateral (left greater than right) foot pain with edema, erythema, ulcerations, etc. felt secondary to cellulitis was seen by vascular surgery (Yunier Brumfield M.D.) and a left lower extremity angiogram had been planned, but aborted after she became acutely short of breath without acute electrocardiographic or chest x-ray findings. Fortunately, her breathing has improved and she presently feels as though she is at her baseline. It is unlikely that she has had any recent noninvasive cardiac evaluation including an echocardiogram, pharmacologic stress test, etc. Allergies/Medications Allergies: Coded Allergies: No Known Allergies (10/31/16) Home Med List: Apixaban (Eliquis) 2.5 MG TABLET 1 TAB PO BID BLOOD THINNER (Reported) Diltiazem HCl (Cardizem Cd) 240 MG CAP.ER.24H 1 CAP PO QHS HEART/BP (Reported ) Furosemide 20 MG TABLET 1 TAB PO EOD DIURETIC (Reported) Furosemide (Lasix) 40 MG TABLET 1 TAB PO AD DIURETIC (Reported) Levofloxacin (Unknown Strength) TABLET (Unknown Dose) UNKNOWN (Reported) Metformin HCl 500 MG TABLET 1 TAB PO QAM DM (Reported) Metformin HCl 500 MG TABLET 2 TAB PO QPM DM (Reported) Multivitamin (Multi-Day Vitamins) 1 EACH TABLET 1 TAB PO DAILY SUPPLEMENT ( Reported) Omeprazole 40 MG CAPSULE.DR 1 CAP PO DAILY AC GI (Reported) Oxycodone HCl/Acetaminophen (Oxycodone-Acetaminophen 5-325) 5 MG-325 MG TABLET 1 TAB PO 4XDAILY PRN PAIN (Reported) Ramipril 10 MG CAPSULE 1 CAP PO QAM BP (Reported) Simvastatin (Zocor*) 20 MG TABLET 1 TAB PO QPM CHOLESTEROL (Reported) Review of Systems Review of Systems: A 14 point system review was obtained and was noncontributory, other than for the fact she wears glasses, has hearing loss, and in addition to her bilateral lower extremity discomfort is experiencing left shoulder pain. Past History Travel History Traveled to [place] past 21 day No Medical History Blood Transfusion Hx: No Neurological: peripheral neuropathy EENT: hearing loss Cardiovascular: AFIB Respiratory: NONE Gastrointestinal: constipation Hepatic: NONE Renal: NONE Musculoskeletal: NONE Psychiatric: NONE Endocrine: diabetes Blood Disorders: anemia Cancer(s): NONE COMMUNITY RELATIONS DIRECTOR/Reproductive: NONE Surgical History Surgical History: none Family History Relations & Conditions If Any: Relation not specified for: Cardiac disorder FH: cancer Psychosocial History Where Do You Live? Home Services at Home: None Smoking Status: Never Smoked ETOH Use: denies use Illicit Drug Use: denies illicit drug use Exam & Diagnostic Data Vital Signs and I&O Vital Signs Date Time Temp Pulse Resp B/P B/P Pulse O2 O2 Flow FiO2 Mean Ox Delivery Rate 11/07 1426 98.2 69 20 130/80 98 Nasal 2.0L Cannula 11/07 1349 Nasal 2.0L Cannula 11/07 0800 99 Nasal 2.0L Cannula 11/07 0648 98.1 96 16 102/58 94 11/07 0000 Nasal 2.0L Cannula 11/06 2158 98.4 98 18 100/60 100 Nasal 2.0L Cannula Intake & Output 11/07 1600 11/07 0800 11/07 0000 11/06 1600 11/06 0800 11/06 0000 Intake Total 480 360 630 600 120 160 Output Total 800 150 150 400 450 220 Balance -320 210 480 200 -330 -60 Intake, IV 130 20 Intake, Oral 480 360 500 600 120 140 Output, Urine 800 150 150 400 450 220 Patient 192 lb 189 lb Weight Physical Exam: Well-developed, obese, pale-appearing, elderly female in no acute distress with nasal oxygen in place. Vital signs: See above. HEENT: Normocephalic, atraumatic, EOMI, slightly dry mucous membranes. Neck: No JVD, no bruits. Lungs: Clear to auscultation. Heart: S1, S2 with grade 1-2/6 systolic murmur. No gallop or rub appreciated. PMI not well felt. Abdomen: Soft, nontender, positive bowel sounds. Extremities: 2+ bilateral lower extremity edema with some erythema and wrapped feet. Labs/Carlos Results: Laboratory Tests 11/07 11/06 1017 0638 Chemistry Sodium (137 - 145 mmol/L) 138 139 Potassium (3.5 - 5.1 mmol/L) 4.9 4.2 Chloride (98 - 107 mmol/L) 113 H 113 H Carbon Dioxide (22 - 30 mmol/L) 19 L 21 L Anion Gap (5 - 16) 6 6 BUN (7 - 17 mg/dL) 14 11 Creatinine (0.5 - 1.0 mg/dL) 1.3 H 1.0 Estimated GFR (>60 ml/min) 39 L 53 L BUN/Creatinine Ratio (7 - 25 %) 10.8 11.0 Calcium (8.4 - 10.2 mg/dL) 7.5 L Magnesium (1.6 - 2.3 mg/dL) 1.7 1.5 L Albumin (3.5 - 5.0 g/dL) 1.9 L Hematology CBC w Diff NO MAN DIFF REQ NO MAN DIFF REQ WBC (4.8 - 10.8 /CUMM) 6.2 7.3 RBC (4.20 - 5.40 /CUMM) 2.52 L 2.36 L Hgb (12.0 - 16.0 G/DL) 8.3 L 7.7 L Hct (37 - 47 %) 25.2 L 23.6 L MCV (81.0 - 99.0 FL) 100.1 H 100.1 H MCH (27.0 - 31.0 PG) 33.1 H 32.6 H RDW (11.5 - 14.5 %) 14.9 H 14.5 Plt Count (130 - 400 /CUMM) 211 190 MPV (7.4 - 10.4 FL) 8.1 8.1 Gran % (42.2 - 75.2 %) 68.5 79.2 H Lymphocytes % (20.5 - 51.1 %) 20.8 12.4 L Monocytes % (1.7 - 9.3 %) 8.6 7.1 Eosinophils % (0 - 5 %) 1.6 1.1 Basophils % (0.0 - 2.0 %) 0.5 0.2 Absolute Granulocytes (1.4 - 6.5 /CUMM) 4.2 5.8 Absolute Lymphocytes (1.2 - 3.4 /CUMM) 1.3 0.9 L Absolute Monocytes (0.10 - 0.60 /CUMM) 0.5 0.5 Absolute Eosinophils (0.0 - 0.7 /CUMM) 0.1 0.1 Absolute Basophils (0.0 - 0.2 /CUMM) 0 0 PUBS MCHC (33.0 - 37.0 G/DL) 33.1 32.6 L Diagnostic Data EKG Results (11/04/2016): Atrial fibrillation, diffuse low voltage, 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 Faster rate when compared to previous tracing (10/31/2016). CXR Results (11/04/2016): Stable appearing chest x-ray. Assessment/Plan Assessment/Plan Fortunately, Mrs. Gonzalez is feeling improved, however, the etiology for her acute episode of shortness of breath is unclear with no acute significant electrocardiographic changes, no evidence of myocardial necrosis by serial cardiac enzymes, and an unremarkable CXR. Given her known risk equivalent for coronary artery disease with diabetes mellitus and suspected vascular disease, as well as, her multiple risk factors for the same underlying myocardial ischemia may have played a role in her episode, however, it was long-lasting enough to have let's to electrocardiographic changes or a troponin bump. Fortunately, the angiogram and possible percutaneous vascular intervention should be relatively low risk and the benefit would appear to outweigh the risk. Recommendations: * Proceed with planned lower extremity arteriogram and intervention as needed. * Postprocedure ECG. * Hold apixaban and start IV heparin in anticipation of the arteriogram and possible percutaneous intervention. * Evaluate anemia. * Follow-up on ID, endocrine, and vascular recommendations. * Schedule an echocardiogram to assess her left ventricular function, systolic murmur, etiology for low voltage, etc. * DVT prophylaxis being addressed by her anticoagulation for chronic atrial fibrillation. * An outpatient pharmacologic stress test would be appropriate at some point for risk stratification. Consult Acknowledgment - Thank you for your consult request.
--- NOTE | 2016-11-07 20:22 | NUR ---
PT BEGINNING OF SHIFT PT COMPLAINING OF LEFT SHOULDER PAIN, PER PATIENT PAIN STARTED A DAY AGO BUT IS NOW SEVERE. SHOULDER HURTS WITH MOVEMENT. DILAUDID GIVEN FOR PAIN. MD CHRISTIAN CAME TO ASSESS PATIENT AROUND 1800, DAUGHTER ENEDINA AT BEDSIDE. X RAY ORDERED FOR SHOULDER PAIN. 2+ GENERALIZED EDEMA, 3+ EDEMA ON LOWER EXT. LUNG SOUNDS DIMINSHED TO AUSCULTATION. LEGS ELEVALTED, BED ALARM ON. LASIX 20 MG PO GIVEN FOR THE FLUID RETENTION. BP 110/60. WILL CONTINUE TO ASSESS PT.
--- NOTE | 2016-11-07 20:28 | Event Note ---
Event Note Event Note: I saw and examined the patient. As per dr. Vanegas note we needed to start her on start IV heparin in anticipation of the arteriogram. Before starting Guaiac test was performed. I explained it to her and she agreed to it. It was negative and pt will be started on heparin as per cardio recs
--- NOTE | 2016-11-07 22:21 | RADIOLOGY REPORT ---
EXAMINATION: XR HUMERUS, LEFT CLINICAL INFORMATION: Pain with movement. COMPARISON: None TECHNIQUE: AP and lateral views of the left humerus. FINDINGS: Bone mineral density is diffusely decreased without evidence of fracture or dislocation. No focal osseous lesions are seen. Joint space is maintained without productive or erosive changes. IMPRESSION: Osteopenia, no focal osseous lesions or fractures.
--- NOTE | 2016-11-07 23:02 | Event Note ---
Event Note Event Note: S Heparin Not started B: Patient needs to be on Heparin from DVT prophylaxis. A/R: Patient was a tough stick, however, nurses assured house staff they were working on it. Access was obtained, patient on IV Heparin as per recomendations from Cardiology
[2016-11-07 23:43] VITALS: BP 124/60
[2016-11-08 06:44] VITALS: BP 110/64
--- NOTE | 2016-11-08 06:56 | PN- Housestaff ---
See Addendum Subjective Follow-up For: Lower extremity claudication Subjective: Dr. Krishna, the paid search analyst saw her last night for clearance for the angiogram. He provided some instructions. She was started on heparin and apixiban was held. This morning she continues to be in pain. She is hopeful that the procedure will reduce the pain. She was also complaining of some shoulder pain in the left. She received an x-ray that showed osteopenia but no focal lesions or fractures. She believes this is caused by the IV sticks that are very painful for her. Review of Systems Constitutional: Reports: no symptoms. EENTM: Reports: no symptoms. Cardiovascular: Reports: no symptoms. Respiratory: Reports: no symptoms. Gastrointestinal: Reports: no symptoms. Genitourinary: Reports: no symptoms. Musculoskeletal: Reports: no symptoms. Skin: Reports: no symptoms. Neurological/Psychological: Reports: no symptoms. Hematologic/Endocrine: Reports: no symptoms. Immunologic/Allergic: Reports: no symptoms. Review of Systems Review of Systems Constitutional: Reports: no symptoms. EENTM: Reports: no symptoms. Cardiovascular: Reports: no symptoms. Respiratory: Reports: no symptoms. GI: Reports: no symptoms. Genitourinary: Reports: no symptoms. Musculoskeletal: Reports: see HPI. Skin: Reports: no symptoms. Neurological/Psychological: Reports: no symptoms. Hematologic/Endocrine: Reports: no symptoms. Immunologic/Allergic: Reports: no symptoms. All Other Systems: Reviewed and Negative Objective Last 24 Hrs of Vital Signs/I&O Vital Signs Date Time Temp Pulse Resp B/P B/P Pulse O2 O2 Flow FiO2 Mean Ox Delivery Rate 11/08 0644 98.0 66 20 110/64 95 Nasal 2.0L Cannula 11/08 0000 Nasal 2.0L Cannula 11/07 2343 98.4 83 20 124/60 100 Nasal Cannula 11/07 1600 Nasal 2.0L Cannula 11/07 1426 98.2 69 20 130/80 98 Nasal 2.0L Cannula 11/07 1349 Nasal 2.0L Cannula 11/07 0800 99 Nasal 2.0L Cannula Intake & Output 11/08 0800 11/08 0000 11/07 1600 Intake Total 1008 450 480 Output Total 400 350 800 Balance 608 100 -320 Intake, IV 1008 Intake, Oral 450 480 Number 0 Bowel Movements Output, Urine 400 350 800 Patient 192 lb Weight Physical Exam General Appearance: Alert, Oriented X3, Cooperative, No Acute Distress Cardiovascular: Regular Rate, Normal S1, Normal S2, systolic murmur Lungs: Clear to Auscultation Abdomen: Soft, No Tenderness, hernia/mass Extremities: absent DP pulses bilaterally Current Medications: Current Medications Sig/Abundio Start time Last Medication Dose Route Stop Time Status Admin Acetaminophen 650 MG Q6P PRN 10/31 2130 AC 11/04 PO 0909 Acetaminophen/ 2 TAB ONCE ONE 11/08 0200 DC 11/08 Hydrocodone Bitart PO 11/08 0201 0204 Acetaminophen/ 2 TAB Q4P PRN 11/06 0930 AC 11/07 Hydrocodone Bitart PO 2258 Apixaban 2.5 MG BID 11/08 2200 CAN PO Apixaban 2.5 MG ONCE ONE 11/07 1115 CAN PO 11/07 1116 Atorvastatin Calcium 20 MG 1700 11/01 1700 AC 11/07 PO 1843 Calcium Carbonate 650 MG DAILY 11/07 1000 AC 11/07 PO 0901 Dextrose/Sodium 1,000 ML Q10H 11/07 1900 AC 11/07 Chloride IV 2250 Diltiazem HCl 240 MG AT BEDTIME 11/01 2200 AC 11/07 PO 2258 Ergocalciferol 50,000 IU ONCE A WEEK 11/02 1000 AC 11/02 PO 12/21 1001 1126 Famotidine 20 MG DAILY 11/04 1136 AC 11/07 PO 0901 Furosemide 20 MG ONCE ONE 11/07 1830 DC 11/07 PO 11/07 1831 1843 Heparin Sodium 25,000 UNIT Q24H 11/07 2030 AC 11/07 (Porcine) IV 2342 Sodium Chloride 500 ML Hydromorphone HCl 1 MG Q6P PRN 10/31 2130 DC 11/07 IV 1642 Insulin Aspart 0 TIDAC 11/04 1700 CA 11/07 SC 1235 Insulin Human Regular 0 Q6 11/08 2359 [facility] Insulin Human Regular 0 Q6 11/08 0015 11/08 SC 0636 Patient Medication 1 ED .STK-MED ONE 11/07 1400 CA Teaching ED 11/07 1401 Last 24 Hrs of Lab/Carlos Results Last 24 Hrs of Labs/Mics: Laboratory Tests 11/08/16 0600: APTT Cancelled 11/07/16 1017: Anion Gap 6, Estimated GFR 39 L, BUN/Creatinine Ratio 10.8, Magnesium 1.7, CBC w Diff NO MAN DIFF REQ, RBC 2.52 L, MCV 100.1 H, MCH 33.1 H, RDW 14.9 H, MPV 8.1, Gran % 68.5, Lymphocytes % 20.8, Monocytes % 8.6, Eosinophils % 1.6, Basophils % 0.5, Absolute Granulocytes 4.2, Absolute Lymphocytes 1.3, Absolute Monocytes 0.5, Absolute Eosinophils 0.1, Absolute Basophils 0, PUBS MCHC 33.1 Assessment/Plan Assessment: 80-year-old female with history of 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 However it may also be claudication. When she arrived she had an MISTY that has since resolved with hydration and her creatinine is now 1.0. She likely had a metformin induced lactic acidosis. Her lactic acid has come down from 8.7 on October 31 to 1.0 on November 04. Her other electrolytes have continued to improve. I called her PCP, Dr. Rosario, on 11/03/2016 and confirmed a superficial wound culture that grew Pseudomonas. It was taken the day of admission. Because it was a superficial wound culture and she does not show signs of infection this is likely a contaminant. On 11/04/2016, she was supposed to go for an angiogram. However when she went down for the procedure she started experiencing shortness of breath with crackles on exam. Because of this she was unable to receive angiogram. Chest x- ray did not show any effusion or infiltrate. She was given Lasix and her dyspnea improved. Yesterday, Dr. Krishna the paid search analyst saw her. He gave her clearance for the angiogram today. #Left lower extremity pain likely secondary to claudication: The vascular surgeon will perform the angiogram today. We will continue to monitor for signs of infection. Cultures no growth so far. Her pain is quite severe. -Continue to monitor off antibiotics. -Leg elevation -Daily weight and intake output record -ID, podiatry, vascular consults -Leg angiogram on Monday -Vicodin 2 tabs Q4H PRN. -Appreciate Dr. Tomi's recommendations: Postprocedure ECG, echocardiogram, outpatient pharmacologic stress test. -Restart apixiban after the angiogram #Dyspnea: This has improved s/p lasix. She feels like she is breathing better, though she is still on oxygen. -Monitor vitals. -Oxygen therapy as needed -Consider Lasix if she seems overloaded -Cardiology Recommendations: -Postprocedure EKG -Hold apixiban and start IV heparin anticipation of the arteriogram. -Evaluating anemia murmur, etiology for low voltage #Shoulder pain: She was complaining of shoulder pain last night. She says the IV sticks cause this. An x-ray showed osteopenia, no focal lesions or fractures. -Ice -Consider using lidocaine before venipuncture #Itchiness: she is complaining of some generalized itchiness that moves around her body currently located in her back. There is no rash. This is likely a side effect of the Vicodin versus xerosis. She received some Benadryl with good effect. 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 Recently increased lasix dose, but likely not the cause of her issues. This is probably caused by a vitamin D deficiency. With this, she has also been hypocalcemic and hypomagnesic. -Replete vitamin D 80128B Qweekly -Calcitrol 0.25 g by mouth daily -Calcium carbonate 1250 mg by mouth daily -Appreciate Endocrine recommendations -Replete magnesium with IV and by mouth magnesium #Macrocytic (MCV 100.1 today) anemia. Her hemoglobin has been vacillating. It was 9.1 on November 05 and yesterday was 7.7. We'll follow up what it is today. Most likely anemia of chronic disease with a low TIBC and normal iron and normal ferritin. Bilirubin and LDH has been normal. Her vitamin B12 was normal. We will monitor for blood loss. Stool guaiac negative. -Daily CBCs -Follow up haptoglobin #Hypotension: Her pressures have be good lately. -Monitor BP MISTY. Creatinine around 1.3 today. However we do not want to push her into an exacerbation of CHF. We will consider gentle fluid hydration after the angiogram. -Holding lasix and lisinopril Hypomagnesimeia; she received 2 bags of magnesium IV yesterday. -Follow up magnesium level today. Chronic and stable conditions Atrial fibrillation: diltiazem 240mg at bedtime. Holding apixiban for angiogram today. We'll restart it after the procedure. otis is now on heparin. HTN: Holding lisinopril in the setting of normotension. Diabetes: Hold metformin; on atorvastatin 20mg- continue Accuchecks with sliding scale GERD: Famotidine. Pain management with Tylenol mild/Dilaudid IV Q6 PRN Diabetic diet DVT prophylaxis Heparin Code status full code Problem List: 1. Left foot pain Pain Ratin Pain Location: Lower extremities Pain Goal: Remain pain free Pain Plan: see A/P Tomorrow's Labs & Rationales: CBC, BEP, Ca, Mg, Phos
[2016-11-08 10:52] LABS: PT 11.7 SEC (9.4-12.5); PTT 90 SEC (25-37)
[2016-11-08 11:12] LABS: ABSOLUTE BASOPHIL COUNT 0 /CUMM (0.0-0.2); ABSOLUTE EOSINOPHIL COUNT 0.1 /CUMM (0.0-0.7); ABSOLUTE GRANULOCYTE CT 4.1 /CUMM (1.4-6.5); ABSOLUTE LYMPH COUNT 1.5 /CUMM (1.2-3.4); ABSOLUTE MONOCYTE COUNT 0.6 /CUMM (0.10-0.60); BASOPHIL % 0.2 % (0.0-2.0); EOSINOPHIL % 2.1 % (0-5); GRANULOCYTE % 64.7 % (42.2-75.2); HEMATOCRIT 24.1 % (37-47); MEAN CORPUSCULAR HGB 32.6 PG (27.0-31.0); MEAN CORPUSCULAR HGB CONC 32.6 G/DL (33.0-37.0); MEAN PLATELET VOLUME 8.4 FL (7.4-10.4); PLATELET COUNT 243 /CUMM (130-400); RBC DISTRIBUTION WIDTH 14.8 % (11.5-14.5); RED BLOOD CELL CT 2.41 /CUMM (4.20-5.40); WHITE BLOOD CELL COUNT 6.3 /CUMM (4.8-10.8)
--- NOTE | 2016-11-08 12:20 | NUR ---
Physical Therapy: Attempted to see pt this afternoon for treatment. Pt currently FELIX for an angiogram. At this time not sure what time patient will return. Will follow up with pt tomorrow as appropriate. Thank you.
--- NOTE | 2016-11-08 13:14 | ECHOCARDIOGRAM REPORT ---
[facility] Age: 80 : 1935 Gender: F Exam Date: 11/07/2016 17:00 Exam Location: [address] [place] [address] A Ht (in): 68 Wt (lb): 183 BSA: 2.01 BP: 130 / 80 Ordering Physician: PERRY LUDWIG MD Referring Physician: Romulo Krishna MD Technologist: Mirtha Cotton [facility] Room Number: 229-01 Indications: AFIB/FLUTTER Rhythm: Atrial fibrillation Technical Quality: Fair FINDINGS Left Ventricle Normal size left ventricle. Borderline to mild concentric left ventricular hypertrophy. No obvious regional wall motion abnormalities. Normal left ventricular ejection fraction visually estimated at >65%. Right Ventricle Right ventricle at upper limits of normal. Right Atrium Mild to moderate right atrial dilatation. Left Atrium Mild to moderate left atrial dilatation. Mitral Valve Moderate mitral annular calcification. Mitral valve mildly thickened with decreased leaflet excursion. Mild mitral stenosis. Mild mitral regurgitation. Aortic Valve Diffuse thickening of the aortic valve cusps with reduced excursion. Moderate aortic stenosis. No aortic regurgitation. Tricuspid Valve Thickened tricuspid valve. Mild tricuspid regurgitation. Mild pulmonary hypertension. Right ventricular systolic pressure estimated to be elevated at 42 mmHg. Pulmonic Valve Pulmonic valve not well visualized, grossly normal. Mild pulmonic regurgitation. Pericardium Small pericardial effusion. No echocardiographic findings to suggest a hemodynamically significant pericardial effusion. Great Vessels Normal size aortic root. CONCLUSIONS Normal size left ventricle. Borderline to mild concentric left ventricular hypertrophy. No obvious regional wall motion abnormalities. Normal left ventricular ejection fraction visually estimated at > 65%. Right ventricle at upper limits of normal. Mild to moderate right atrial dilatation. Mild to moderate left atrial dilatation. Mild mitral stenosis. Mild mitral regurgitation. Moderate aortic stenosis. Mild tricuspid regurgitation. Mild pulmonary hypertension. Mild pulmonic regurgitation. Small pericardial effusion. Romulo Krishna M.D. (Electronically Signed) Final Date: 08 November 2016 13:13 MEASUREMENTS (Male / Female) Normal Values 2D ECHO LV Diastolic Diameter PLAX 3.8 cm 4.2 - 5.9 / 3.9 - 5.3 cm LV Systolic Diameter PLAX 2.2 cm 2.1 - 4.0 cm LV Fractional Shortening PLAX 42.1 % 25 - 46 % LV Ejection Fraction 2D Teich 73.8 % IVS Diastolic Thickness 0.9 cm LVPW Diastolic Thickness 1.1 cm LV Relative Wall Thickness 0.5 RV Internal Dim ED PLAX 3.3 cm 1.9 - 3.8 cm LVOT Diameter 2.2 cm Aortic Root Diameter 3.4 cm LA Systolic Diameter LX 5.2 cm 3.0 - 4.0 / 2.7 - 3.8 cm LA Volume 54.0 cm 18 - 58 / 22 - 52 cm Ascending Aorta Diameter 3.3 cm DOPPLER AV Peak Velocity 313.0 cm/s AV Peak Gradient 39.2 mmHg AV Mean Velocity 218.0 cm/s AV Mean Gradient 22.0 mmHg AV Velocity Time Integral 65.9 cm LVOT Peak Velocity 81.0 cm/s LVOT Peak Gradient 2.6 mmHg LVOT Mean Velocity 54.6 cm/s LVOT Mean Gradient 1.0 mmHg LVOT Velocity Time Integral 21.9 cm LVOT Stroke Volume 83.2 cm AV Area Cont Eq vti 1.3 cm AV Area Cont Eq pk 1.0 cm MV Peak Velocity 198.0 cm/s MV Peak Gradient 15.7 mmHg MV Mean Velocity 90.6 cm/s MV Mean Gradient 5.0 mmHg Mitral E Point Velocity 147.0 cm/s MV PHT Velocity 202.0 cm/s MV Deceleration [place] 676.0 cm/s MV Pressure Half Time 89.6 ms MV Area PHT 2.5 cm MV Deceleration Time 322.0 ms TR Peak Velocity 302.0 cm/s TR Peak Gradient 36.5 mmHg Right Atrial Pressure 5.0 mmHg Pulmonary Artery Systolic Pressu 41.5 mmHg Right Ventricular Systolic Press 41.5 mmHg PV Peak Velocity 97.9 cm/s PV Peak Gradient 3.8 mmHg PV Mean Velocity 66.8 cm/s PV Mean Gradient 2.0 mmHg PV Velocity Time Integral 22.8 cm LV E' Lateral Velocity 8.7 cm/s Mitral E to LV E' Lateral Ratio 16.9 LV E' Septal Velocity 5.3 cm/s Mitral E to LV E' Septal Ratio 27.9
[2016-11-08 17:30] LABS: ABSOLUTE BASOPHIL COUNT 0 /CUMM (0.0-0.2); ABSOLUTE EOSINOPHIL COUNT 0.1 /CUMM (0.0-0.7); ABSOLUTE LYMPH COUNT 1.2 /CUMM (1.2-3.4); ABSOLUTE MONOCYTE COUNT 0.5 /CUMM (0.10-0.60); HEMATOCRIT 21.1 % (37-47); PLATELET COUNT 221 /CUMM (130-400); RED BLOOD CELL CT 2.11 /CUMM (4.20-5.40)
[2016-11-08 17:34] LABS: BASOPHIL % 0.1 % (0.0-2.0); EOSINOPHIL % 1.2 % (0-5); GRANULOCYTE % 68.7 % (42.2-75.2); MEAN CORPUSCULAR HGB 32.9 PG (27.0-31.0); MEAN CORPUSCULAR HGB CONC 32.9 G/DL (33.0-37.0); MEAN PLATELET VOLUME 7.6 FL (7.4-10.4); WHITE BLOOD CELL COUNT 5.8 /CUMM (4.8-10.8)
--- NOTE | 2016-11-08 18:12 | Operative Report ---
Operative/Inv Procedure Report Surgery Date: 11/08/16 Name of Procedure: -Ultrasound-guided right common femoral artery access -Aortogram -Third order left leg angiogram -Angioplasty of left anterior tibial artery Pre-Operative Diagnosis: Nonhealing left foot wound Post-Operative Diagnosis: Same Estimated Blood Loss: scant Surgeon/Call Center Agent: ROBERT DUPREE MD Anesthesia: moderate sedation Operative/Procedure Note Note: 80-year-old lady with multiple medical issues presented to the hospital with hypotension and left foot nonhealing wounds. An arterial ultrasound of the left leg showed no significant disease in the femoral artery. There was question about tibial disease. Because of the nature and nonhealing wounds, the patient was scheduled for left leg angiogram with possible intervention. The nature of the procedure including is possible complications including but not limited to bleeding, infection, blood clots, injury to vessels, and need for re- intervention were discussed. Informed consent was obtained. Patient was taken to the operating room and placed supine on the table. 2 g of Ancef was given. After satisfactory induction of anesthesia, the patient was prepped and draped in standard surgical fashion. Using an ultrasound, right common femoral artery was accessed using micropuncture technique. A Bentson wire was advanced into the common iliac artery under direct fluoroscopic guidance. This wire was not easily advanced into the aorta tortuosity of the iliac artery. The micropuncture sheath was then exchanged with a short 5 Filipino sheath. The aid of a glide catheter, the wire was advanced into the aorta under direct fluoroscopic guidance. Then an Omni flush catheter was advanced over the wire and placed into the abdominal aorta. From this position, an aortogram was performed which showed patent aorta, iliac, external iliac and internal iliac arteries with no significant disease. There was tortuosity of bilateral iliac arteries. Using the Omni Flush catheter and Bentson wire, the iliac artery system was selected. The Omni Flush catheter was exchanged with a glide catheter which was advanced over the wire and placed in the proximal left common femoral artery. From this position, left leg angiogram was performed which showed patent common femoral and profunda femoris. SFA was patent with mild disease. Popliteal artery was patent. There was a short segment stenosis in the below-knee popliteal artery. Then the Bentson wire was advanced into the distal SFA. The glide wire was then advanced into the mid SFA. From this position, left leg Yarely Richard was performed which showed patent proximal anterior tibial artery. This artery then occludes distally. There is diffuse disease throughout this artery. Peroneal artery is the main artery to the foot and is patent from it's origin. Posterior tibial artery is occluded from its origin. There is collaterals in the distal leg. 6000 units of heparin was given. Then the 5 Filipino sheath was exchanged with a 70 cm 6 Filipino Ansell sheath. Because of the tortuosity of the iliac artery, this sheath was very difficult to get into the left external iliac artery. The Townsend wire was then exchanged with a Amplatz wire. This wire was placed into the distal SFA. Then the Ansell sheath was advanced over the wire until the proximal SFA. It was very difficult to advance the sheath at this time any further. I decided to stop there and proceed with intervention from this position. Then the wire was exchanged with 014 journey wire with the aid of a 014 quick cross, I was able to get this wire into the mid anterior tibial artery. The wire would not advance any further. This wire was then exchanged with a 014 victory wire with 12 g tip. This wire was then advanced into the anterior tibial artery further down into the distal segment. The quick cross catheter was advanced for support. I was able to get the wire into the distal anterior tibial artery just before the dorsalis pedis. Then angioplasty of this artery was performed with a 2 x 220 mm balloon. Post angioplasty through the balloon showed that there perhaps was a dissection in the distal segment of the anterior tibial artery. I pulled the quick cross catheter back and perform the angiogram again in which showed improvement of the antecubital artery but there was dissection a distal segment. The below-knee popliteal artery was angioplastied using a 3 x 20 mm followed by 4 x 40 mm balloon. Post angio plasty angiogram showed resolution of the stenosis. At this time, I decided to abort the procedure. Wires and catheters were removed. The Ansell sheath was exchanged with a short 6 Filipino sheath. The puncture site was then closed using Exoseal device. 2 minutes of manual pressure was applied. Sterile dressing was then applied. There was a stronger dorsalis pedis and posterior tibial artery post procedure. The patient was taken to the PACU in stable condition.
[2016-11-08 22:53] VITALS: BP 122/74
--- NOTE | 2016-11-09 05:21 | PN- Vascular Surgery ---
Subjective Subjective: Patient resting comfortably, no complaints of pain at the present time, has been able to sleep. Objective Vital Signs and I&Os Vital Signs Date Time Temp Pulse Resp B/P B/P Pulse O2 O2 Flow FiO2 Mean Ox Delivery Rate 11/08 2301 97 Nasal 3.0L Cannula 11/08 2253 98.0 94 20 122/74 97 Room Air 11/08 0941 Nasal 2.0L Cannula 11/08 0644 98.0 66 20 110/64 95 Nasal 2.0L Cannula Intake & Output 11/09 0811/09 0000 11/08 1600 11/08 0811/08 0000 11/07 1600 Intake Total 329 122 3367 450 480 Output Total 300 540 400 350 800 Balance -100 160 608 100 -320 Intake, IV 600 1008 Intake, Oral 200 100 450 480 Number 0 Bowel Movements Output, Urine 300 540 400 350 800 Patient 192 lb Weight Physical Exam: General: Drowsy, currently asleep, awakens to verbal stimuli, answers appropriately Cardiac: RRR s1s2 Pulm: Non-labored respiratory effort, cta Abdomen: Obese, non-tender Extremties: Distal sensations intact, left foot dp pulse palpable, skin warm and well perfused, bilateral calves soft Surgical site: Right groin, dressing dry and intact Assessment/Plan Assessment/Plan This is an 80 year old female, POD 1, s/p aortogram and left leg angioplasty -Continue primary management per medical team -Issa for anticoagulation -F/U h&h -Surgery remains available for consult
[2016-11-09 07:28] VITALS: BP 120/70
[2016-11-09 08:12] LABS: ABSOLUTE BASOPHIL COUNT 0 /CUMM (0.0-0.2); ABSOLUTE EOSINOPHIL COUNT 0.1 /CUMM (0.0-0.7); ABSOLUTE LYMPH COUNT 0.9 /CUMM (1.2-3.4)
[2016-11-09 08:40] LABS: ABSOLUTE GRANULOCYTE CT 5.5 /CUMM (1.4-6.5); ABSOLUTE MONOCYTE COUNT 0.6 /CUMM (0.10-0.60); BASOPHIL % 0.1 % (0.0-2.0); EOSINOPHIL % 0.7 % (0-5); GRANULOCYTE % 77.8 % (42.2-75.2); MEAN CORPUSCULAR HGB 32.4 PG (27.0-31.0); MEAN CORPUSCULAR HGB CONC 33.3 G/DL (33.0-37.0); MEAN CORPUSCULAR VOLUME 97.5 FL (81.0-99.0); PLATELET COUNT 220 /CUMM (130-400); RBC DISTRIBUTION WIDTH 16.6 % (11.5-14.5); WHITE BLOOD CELL COUNT 7.1 /CUMM (4.8-10.8)
[2016-11-09 08:44] LABS: HEMATOCRIT 28.1 % (37-47); RED BLOOD CELL CT 2.88 /CUMM (4.20-5.40)
--- NOTE | 2016-11-09 08:52 | RADIOLOGY REPORT ---
EXAMINATION: INTRAOPERATIVE FLUOROSCOPY DURING LEFT LOWER EXTREMITY ANGIOGRAM AND ANGIOPLASTY. CLINICAL INDICATION: Intraoperative Fluoroscopy during angiogram. COMPARISON: None. TECHNIQUE: The procedure was performed by Dr. Leonardo in the operating room. FLUOROSCOPY TIME: 28 minutes 45 seconds. FINDINGS/IMPRESSION: Intraoperative fluoroscopy was utilized by Dr. Leonardo during aortogram, left lower extremity angiogram and angioplasty of the left anterior tibial artery. Please refer to the operative report for a detailed description of the procedure and the real-time findings made and acted upon by the surgeon.
--- NOTE | 2016-11-09 13:57 | PN- Housestaff ---
JONH LÓPEZ,SAILAJA 11/09/16 1356: Subjective Follow-up For: #Left lower extremity pain #Dyspnea #Shoulder pain #macrocytic Complaints: no complaints Tele-Events Since Last Visit: a fib multifocal, pvcs 72-85, 3 beats run at 6 am Review of Systems Constitutional: Reports: weakness. Cardiovascular: Reports: see HPI. Respiratory: Reports: short of breath, sputum production. Musculoskeletal: Reports: muscle pain (intermittent claudication). Objective Last 24 Hrs of Vital Signs/I&O Vital Signs Date Time Temp Pulse Resp B/P B/P Pulse O2 O2 Flow FiO2 Mean Ox Delivery Rate 11/09 1522 98.4 75 20 112/60 99 Nasal 2.5L Cannula 11/09 1138 Nasal 2.0L Cannula 11/09 0800 Nasal 3.0L Cannula 11/09 0728 97.9 76 20 120/70 94 Nasal 3.0L Cannula 11/08 2301 97 Nasal 3.0L Cannula 11/08 2253 98.0 94 20 122/74 97 Room Air Intake & Output 11/09 1600 11/09 0800 11/09 0000 Intake Total 985.5 450 200 Output Total 300 300 300 Balance 685.5 150 -100 Intake, IV 405.5 350 Intake, Oral 580 100 200 Number 1 Bowel Movements Output, Urine 300 300 300 Patient 207 lb Weight Weight Fadumo Lift Measurement Method Physical Exam General Appearance: Alert, Oriented X3, Cooperative, No Acute Distress Skin: No Rashes, No Breakdown, No Significant Lesion, right breast is enlarged but not hot or red or tender HEENT: Atraumatic, PERRLA, EOMI, Mucous Membr. 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 However it may also be claudication. When she arrived she had an MISTY that has since resolved with hydration and her creatinine is now 1.0. She likely had a metformin induced lactic acidosis. Her lactic acid has come down from 8.7 on October 31 to 1.0 on November 04. Her other electrolytes have continued to improve. superficial wound culture grew Pseudomonas. It was taken the day of admission. Because it was a superficial wound culture and she does not show signs of infection this is likely a contaminant. On 11/04/2016, she was supposed to go for an angiogram. However when she went down for the procedure she started experiencing shortness of breath with crackles on exam. Because of this she was unable to receive angiogram. Chest x- ray did not show any effusion or infiltrate. She was given Lasix and her dyspnea improved. #Left lower extremity pain: -2/2 claudication:s/p aortogram and left leg angioplasty -We will continue to monitor for signs of infection. -Cultures no growth so far. -Continue to hold antibiotics. -Leg elevation -Daily weight: pt gianed around 29 lbs since admission , will follow up with strict weights , and intake output record -ID, podiatry, vascular consults -Vicodin 2 tabs Q4H PRN. -will continue eliquis as per vascular surgery #Dyspnea: improved continue lasix 40 mg PO -follow-up ECG, check troponin, Follow-up H/H this p.m, ,Check CXR in a.m. as per dr Krishna recomm -Monitor vitals. -Oxygen therapy as needed might need Outpatient pharmacologic stress test #Shoulder pain: improved, An x-ray showed osteopenia, no focal lesions or fractures. -Consider using lidocaine before venipuncture #Itchiness: she is complaining of some generalized itchiness that moves around her body currently located in her back. There is no rash. This is likely a side effect of the Vicodin versus xerosis. 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 This is probably caused by a vitamin D deficiency. -Replete vitamin D 93397I Qweekly -Calcitrol 0.25 g by mouth daily -Calcium carbonate 1250 mg by mouth daily -Appreciate Endocrine recommendations -Replete magnesium with IV and by mouth magnesium #Macrocytic anemia: It is hgb 9.3, mcv 97.5 today We'll follow up on cbc/day Most likely anemia of chronic disease with a low TIBC and normal iron and normal ferritin. Bilirubin and LDH has been normal,Her vitamin B12 was normal. We will monitor for blood loss. Stool guaiac negative. #Hypotension: improved continue to Monitor BP #MISTY: improved reatinine around 1 today. #chronic Atrial fibrillation: diltiazem 240mg at bedtime, eliquis #Diabetes: Hold metformin; continue Accuchecks with sliding scale GERD: Famotidine. Pain management with Tylenol mild/Dilaudid IV Q6 PRN Diabetic diet DVT prophylaxis Heparin Code status full code Problem List: 1. Left foot pain 2. Cellulitis 3. Atrial fibrillation, chronic 4. Lactic acidemia 5. Acute renal failure Pain Ratin Pain Location: n/a Pain Goal: Remain pain free Pain Plan: tylenol mild/Dilaudid IV Q6 PRN Tomorrow's Labs & Rationales: cbc bep DVT/Prophylaxis: pharmacological KELLY ARAUZ MD 11/09/16 1192: Attending MD Review Statement Attending Statement Attending MD Statement: examined this patient, discuss w/resident/PA/[employer], agreed w/resident/PA/[employer], reviewed EMR data (avail) Attending Assessment/Plan: Patient doing well post-procedure yesterday. Required 1 unit pRBC post-op. BP and HR normalized, breathing at baseline. Will continue on telemetry, follow vascular and cardiology recommendations, obtain podiatry consult, continue to monitor off antibiotics, monitor CBC, continue current medications, DVT PPx OTILIO DOCKERY MD 11/12/16 7052: Attending Review Statement Attending Statement Attending Assessment/Plan: Followed by Dr. Arauz.
[2016-11-09 15:22] VITALS: BP 112/60
--- NOTE | 2016-11-09 17:30 | PN- Cardiology ---
Subjective Subjective: Sitting up visiting with son and complaining of some lower extremity discomfort POD #1, s/p US-guided right common femoral artery access, aortogram, third order left leg angiogram, and angioplasty of left anterior tibial artery and subsequent hypotension with anemia s/p transfusion pRBCs. Denies any chest discomfort, shortness of breath, etc. Objective Vital Signs and I&Os Vital Signs Date Time Temp Pulse Resp B/P B/P Pulse O2 O2 Flow FiO2 Mean Ox Delivery Rate 11/09 1522 98.4 75 20 112/60 99 Nasal 2.5L Cannula 11/09 1138 Nasal 2.0L Cannula 11/09 0800 Nasal 3.0L Cannula 11/09 0728 97.9 76 20 120/70 94 Nasal 3.0L Cannula 11/08 2301 97 Nasal 3.0L Cannula 11/08 2253 98.0 94 20 122/74 97 Room Air Intake & Output 11/09 1600 11/09 0800 11/09 0000 11/08 1600 11/08 0800 11/08 0000 Intake Total 985.5 450 387 894 9888 450 Output Total 300 300 300 540 400 350 Balance 685.5 150 -100 160 608 100 Intake, IV 405.5 072 353 6868 Intake, Oral 580 100 200 100 450 Number 1 0 Bowel Movements Output, Urine 300 300 300 540 400 350 Patient 207 lb Weight Weight Fadumo Lift Measurement Method Physical Exam: Well-developed, obese and pale appearing elderly female in no acute distress. Vital signs: See above. Lungs: Few bibasilar crackles. Heart: S1, S2 with grade 2/6 systolic murmur. Extremities: Positive edema. Current Medications: Current Medications Sig/Abundio Start time Last Medication Dose Route Stop Time Status Admin Acetaminophen 650 MG Q6P PRN 10/31 2130 AC 11/04 PO 0909 Acetaminophen/ 2 TAB Q4P PRN 11/06 0930 AC 11/09 Hydrocodone Bitart PO 0658 Apixaban 2.5 MG BID 11/08 220 AC 11/09 PO 0957 Atorvastatin Calcium 20 MG 1700 11/01 1700 AC 11/09 PO 1608 Calcium Carbonate 650 MG DAILY 11/07 1000 AC 11/09 PO 0957 Dextrose/Sodium 1,000 ML Q10H 11/07 1900 DC 11/09 Chloride IV 0004 Diltiazem HCl 240 MG AT BEDTIME 11/01 2199 AC 11/08 PO 2345 Ergocalciferol 50,000 IU ONCE A WEEK 11/02 1000 AC 11/09 PO 12/21 1001 0956 Famotidine 20 MG DAILY 11/04 1136 AC 11/09 PO 0956 Furosemide 40 MG DAILY 11/09 1559 AC 11/09 PO 1608 Hydromorphone HCl 1 MG Q6P PRN 11/08 1045 AC 11/09 IV 0957 Insulin Aspart 0 TIDAC 11/09 0800 SC Patient Medication 1 ED .STK-MED ONE 11/09 1439 [facility] ED 11/09 1440 Results Last 48 Hrs of Labs/Mics: Laboratory Tests 11/09/16 0640: Anion Gap 8, Estimated GFR 53 L, BUN/Creatinine Ratio 13.0, CBC w Diff NO MAN DIFF REQ, RBC 2.88 L, MCV 97.5, MCH 32.4 H, RDW 16.6 H, MPV 8.0, Gran % 77.8 H, Lymphocytes % 13.1 L, Monocytes % 8.3, Eosinophils % 0.7, Basophils % 0.1, Absolute Granulocytes 5.5, Absolute Lymphocytes 0.9 L, Absolute Monocytes 0.6, Absolute Eosinophils 0.1, Absolute Basophils 0, PUBS MCHC 33.3 11/08/16 1710: CBC w Diff NO MAN DIFF REQ, RBC 2.11 L, MCV 100.0 H, MCH 32.9 H, RDW 15.0 H, MPV 7.6, Gran % 68.7, Lymphocytes % 21.4, Monocytes % 8.6, Eosinophils % 1.2, Basophils % 0.1, Absolute Granulocytes 4.0, Absolute Lymphocytes 1.2, Absolute Monocytes 0.5, Absolute Eosinophils 0.1, Absolute Basophils 0, PUBS MCHC 32.9 L 11/08/16 0950: Haptoglobin Pending 11/08/16 0950: Anion Gap 4 L, Estimated GFR 48 L, BUN/Creatinine Ratio 11.8, Calcium 7.6 L, Magnesium 1.5 L, Total Bilirubin 0.4, Direct Bilirubin 0.2, AST 27, ALT 33, Alkaline Phosphatase 123, Lactate Dehydrogenase 470, Total Protein 4.5 L, Albumin 2.0 L, PT 11.7, INR 1.12, APTT 90 H, CBC w Diff NO MAN DIFF REQ, RBC 2.41 L, MCV 100.0 H, MCH 32.6 H, RDW 14.8 H, MPV 8.4, Gran % 64.7, Lymphocytes % 23.4, Monocytes % 9.6 H, Eosinophils % 2.1, Basophils % 0.2, Absolute Granulocytes 4.1, Absolute Lymphocytes 1.5, Absolute Monocytes 0.6, Absolute Eosinophils 0.1, Absolute Basophils 0, PUBS MCHC 32.6 L 11/08/16 0600: APTT Cancelled Assessment/Plan Assessment/Plan [id number] w/ hx obesity, remote tobacco use, HTN, HLD, DM w/ neuropathy, suspected CKD, chronic anemia, and AF on Eliquis who presented to the ED after her OP furosemide had been increased from 20 mg to 40 mg daily with hypotension, metabolic acidosis possibly secondary to metformin 10/31/2016, hypocalcemia, hypomagnesemia, vitamin D deficiency with suspected hyperparathyroidism, and bilateral (left greater than right) foot pain with edema, erythema, ulcerations, etc. felt secondary to cellulitis was seen by vascular surgery (Yunier Brumfield M.D.) and a left lower extremity angiogram had been planned, but aborted after she became acutely short of breath without acute electrocardiographic or chest x-ray findings and who subsequently underwent angioplasty of the left anterior tibial artery on 11/08/2016 with postprocedure hypotension, anemia, etc. that improved with volume, PRBCs, etc. Recommendation: * Continue on telemetry, follow-up ECG, check troponin. * Follow-up H/H this p.m. * Anticoagulation as per vascular surgery. * Check CXR in a.m. * DVT prophylaxis. Continue telemetry? Yes including an echocardiogram, pharmacologic stress test, etc. Continue telemetry? Yes
--- NOTE | 2016-11-09 19:53 | PN- Housestaff ---
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 However it may also be claudication. When she arrived she had an MISTY that has since resolved with hydration and her creatinine is now 1.0. She likely had a metformin induced lactic acidosis. Her lactic acid has come down from 8.7 on October 31 to 1.0 on November 04. Her other electrolytes have continued to improve. I called her PCP, Dr. Rosario, on 11/03/2016 and confirmed a superficial wound culture that grew Pseudomonas. It was taken the day of admission. Because it was a superficial wound culture and she does not show signs of infection this is likely a contaminant. On 11/04/2016, she was supposed to go for an angiogram. However when she went down for the procedure she started experiencing shortness of breath with crackles on exam. Because of this she was unable to receive angiogram. Chest x- ray did not show any effusion or infiltrate. She was given Lasix and her dyspnea improved. Yesterday, Dr. Krishna the vehicle leasing and rental manager saw her. He gave her clearance for the angiogram today. #Left lower extremity pain likely secondary to claudication: The vascular surgeon will perform the angiogram today. We will continue to monitor for signs of infection. Cultures no growth so far. Her pain is quite severe. -Continue to monitor off antibiotics. -Leg elevation -Daily weight and intake output record -ID, podiatry, vascular consults -Leg angiogram on Monday -Vicodin 2 tabs Q4H PRN. -Appreciate Dr. Krishna's recommendations: Postprocedure ECG, echocardiogram, outpatient pharmacologic stress test. -Restart apixiban after the angiogram #Dyspnea: This has improved s/p lasix. She feels like she is breathing better, though she is still on oxygen. -Monitor vitals. -Oxygen therapy as needed -Consider Lasix if she seems overloaded -Cardiology Recommendations: -Postprocedure EKG -Hold apixiban and start IV heparin anticipation of the arteriogram. -Evaluating anemia murmur, etiology for low voltage #Shoulder pain: She was complaining of shoulder pain last night. She says the IV sticks cause this. An x-ray showed osteopenia, no focal lesions or fractures. -Ice -Consider using lidocaine before venipuncture #Itchiness: she is complaining of some generalized itchiness that moves around her body currently located in her back. There is no rash. This is likely a side effect of the Vicodin versus xerosis. She received some Benadryl with good effect. 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 Recently increased lasix dose, but likely not the cause of her issues. This is probably caused by a vitamin D deficiency. With this, she has also been hypocalcemic and hypomagnesic. -Replete vitamin D [id number] Qweekly -Calcitrol 0.25 g by mouth daily -Calcium carbonate 1250 mg by mouth daily -Appreciate Endocrine recommendations -Replete magnesium with IV and by mouth magnesium #Macrocytic (MCV 100.1 today) anemia. Her hemoglobin has been vacillating. It was 9.1 on November 05 and yesterday was 7.7. We'll follow up what it is today. Most likely anemia of chronic disease with a low TIBC and normal iron and normal ferritin. Bilirubin and LDH has been normal. Her vitamin B12 was normal. We will monitor for blood loss. Stool guaiac negative. -Daily CBCs -Follow up haptoglobin #Hypotension: Her pressures have be good lately. -Monitor BP MISTY. Creatinine around 1.3 today. However we do not want to push her into an exacerbation of CHF. We will consider gentle fluid hydration after the angiogram. -Holding lasix and lisinopril Hypomagnesimeia; she received 2 bags of magnesium IV yesterday. -Follow up magnesium level today. Chronic and stable conditions Atrial fibrillation: diltiazem 240mg at bedtime. Holding apixiban for angiogram today. We'll restart it after the procedure. otis is now on heparin. HTN: Holding lisinopril in the setting of normotension. Diabetes: Hold metformin; on atorvastatin 20mg- continue Accuchecks with sliding scale GERD: Famotidine. Pain management with Tylenol mild/Dilaudid IV Q6 PRN Diabetic diet DVT prophylaxis Heparin Code status full code
[2016-11-09 20:46] LABS: ABSOLUTE BASOPHIL COUNT 0 /CUMM (0.0-0.2); ABSOLUTE EOSINOPHIL COUNT 0 /CUMM (0.0-0.7); ABSOLUTE GRANULOCYTE CT 5.1 /CUMM (1.4-6.5); ABSOLUTE LYMPH COUNT 0.9 /CUMM (1.2-3.4); ABSOLUTE MONOCYTE COUNT 0.5 /CUMM (0.10-0.60); BASOPHIL % 0.1 % (0.0-2.0); EOSINOPHIL % 0.7 % (0-5); GRANULOCYTE % 77.6 % (42.2-75.2); HEMATOCRIT 27.6 % (37-47); MEAN CORPUSCULAR HGB 31.7 PG (27.0-31.0); MEAN CORPUSCULAR HGB CONC 32.6 G/DL (33.0-37.0); MEAN CORPUSCULAR VOLUME 97.2 FL (81.0-99.0); PLATELET COUNT 241 /CUMM (130-400); RBC DISTRIBUTION WIDTH 16.2 % (11.5-14.5); RED BLOOD CELL CT 2.84 /CUMM (4.20-5.40); WHITE BLOOD CELL COUNT 6.6 /CUMM (4.8-10.8)
[2016-11-09 21:11] VITALS: BP 110/60
--- NOTE | 2016-11-09 21:36 | ULTRASOUND REPORT ---
EXAMINATION: US BREAST, UNILATERAL RIGHT DIAGNOSTIC CLINICAL INFORMATION: Right breast enlarged and painful. Evaluate for infection. COMPARISON: None. TECHNIQUE: High-resolution grayscale sonography of the right breast was performed by a technologist with a high frequency linear transducer following a standardized protocol. Real-time assessment by the reading radiologist was also performed. FINDINGS: There is diffuse skin thickening seen involving the right breast and extending into the axillary area. This is most marked in the periareolar and outer right breast at the 7 to 9:00 position, where the skin thickness measures up to 0.6 cm and where there is prominent edema months the fascial planes of the breast. No drainable abscess collection is seen. No suspicious mass mass, area of architectural distortion, complex cyst or other sonographically suspicious lesion is identified. IMPRESSION: 1. Above findings are nonspecific but in the clinical setting provided would be consistent with diffuse cellulitis and mastitis. 2. No drainable abscess collection is seen. ASSESSMENT: Right breast: ACR BI-RADS 3: Probably benign finding - short interval follow up. RECOMMENDATIONS: Management of the patient's right breast infection as clinically appropriate. Short interval follow-up right breast ultrasound is also recommended in 3 months.
[2016-11-10 07:43] VITALS: BP 118/68
[2016-11-10 08:27] LABS: ABSOLUTE BASOPHIL COUNT 0 /CUMM (0.0-0.2); ABSOLUTE EOSINOPHIL COUNT 0.1 /CUMM (0.0-0.7); ABSOLUTE MONOCYTE COUNT 0.5 /CUMM (0.10-0.60); BASOPHIL % 0.3 % (0.0-2.0); GRANULOCYTE % 71.4 % (42.2-75.2); HEMATOCRIT 26.8 % (37-47); MEAN CORPUSCULAR HGB 32.3 PG (27.0-31.0); MEAN CORPUSCULAR HGB CONC 33.1 G/DL (33.0-37.0); MEAN CORPUSCULAR VOLUME 97.6 FL (81.0-99.0); MEAN PLATELET VOLUME 7.9 FL (7.4-10.4); PLATELET COUNT 229 /CUMM (130-400); RBC DISTRIBUTION WIDTH 15.9 % (11.5-14.5); RED BLOOD CELL CT 2.75 /CUMM (4.20-5.40); WHITE BLOOD CELL COUNT 5.6 /CUMM (4.8-10.8)
--- NOTE | 2016-11-10 10:08 | RADIOLOGY REPORT ---
EXAMINATION: XR PORTABLE CHEST CLINICAL INFORMATION: Pulmonary edema and fluid retention. COMPARISON: Chest x-ray 11/04/2016. TECHNIQUE: Portable 85 degrees semierect frontal view of the chest was obtained at 9:41 AM. FINDINGS: The lung interiano are moderately well-expanded. There has been interval increase in the left pleural effusion compared to the prior study. Adjacent opacification may be consistent with developing atelectasis or consolidation. The cardiac silhouette is prominent but stable. There is mild prominence of the central pulmonary vasculature. The aortic arch is calcified and the descending aorta is tortuous and ectatic. There are no acute osseous findings. IMPRESSION: 1. There has been interval increase in the left pleural effusion with adjacent opacification, which may be consistent with atelectasis or developing consolidation. 2. There is stable cardiomegaly.
--- NOTE | 2016-11-10 11:23 | PN- Housestaff ---
JOHN LÓPEZ,SAILAJA 11/10/16 1110: Subjective Follow-up For: 1. Left lower extremity pain 2. Dyspnea 3.Shoulder pain 4.macrocytic anemia Complaints: generalized body aches , generalized swelling , SOB Tele-Events Since Last Visit: GM Review of Systems Constitutional: Reports: malaise, weakness. Objective Last 24 Hrs of Vital Signs/I&O Vital Signs Date Time Temp Pulse Resp B/P B/P Pulse O2 O2 Flow FiO2 Mean Ox Delivery Rate 11/10 0800 Nasal 3.0L Cannula 11/10 0743 98.3 61 18 118/68 98 Room Air 11/10 0000 Nasal 3.0L Cannula 11/09 2111 98.5 88 16 110/60 96 Nasal 2.5L Cannula 11/09 1522 98.4 75 20 112/60 99 Nasal 2.5L Cannula 11/09 1138 Nasal 2.0L Cannula Intake & Output 11/10 1600 11/10 0800 11/10 0000 Intake Total 300 835 Output Total 650 Balance 300 185 Intake, IV 75 Intake, Oral 300 760 Number 0 Bowel Movements Output, Urine 650 Patient 195 lb Weight Weight Chair scale Measurement Method Physical Exam General Appearance: Alert, Oriented X3, Cooperative, No Acute Distress Skin: No Rashes, rt lower limb dressing for angio HEENT: Atraumatic, PERRLA, EOMI, Mucous Membr. moist/pink Neck: Supple, No JVD Cardiovascular: Regular Rate, Normal S1, Normal S2, No Murmurs, ejection systolic murmur Extremities: bilateral 2+ edema Vascular: Dp not felt on both LL Orders Radiology Findings: 1. There has been interval increase in the left pleural effusion with adjacent opacification, which may be consistent with atelectasis or developing consolidation. 2. There is stable cardiomegaly. 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 However it may also be claudication. When she arrived she had an MISTY that has since resolved with hydration and her creatinine is now 1.0. She likely had a metformin induced lactic acidosis. Her lactic acid has come down from 8.7 on October 31 to 1.0 on November 04. Her other electrolytes have continued to improve. superficial wound culture grew Pseudomonas. It was taken the day of admission. Because it was a superficial wound culture and she does not show signs of infection this is likely a contaminant. On 11/04/2016, she was supposed to go for an angiogram. However when she went down for the procedure she started experiencing shortness of breath with crackles on exam. Because of this she was unable to receive angiogram. Chest x- ray did not show any effusion or infiltrate. She was given Lasix and her dyspnea improved. #Left lower extremity pain: -2/2 PAD, s/p aortogram and left leg angioplasty -continue to monitor for signs of infection. -Cultures no growth so far. -Continue to hold antibiotics. -Leg elevation -ID, podiatry, vascular on board -Vicodin 2 tabs Q4H PRN. -will continue eliquis as per vascular surgery -generalized edema and fluid retention: pt lost 12 LBS since yesterday due to diuresis will follow up with strict weights , and intake output record #Dyspnea: improved continue lasix 40 mg PO -cxr this morning :There has been interval increase in the left pleural effusion with adjacent opacification, which may be consistent with atelectasis or developing consolidation, There is stable cardiomegaly. -Monitor vitals. -Oxygen therapy as needed might need Outpatient pharmacologic stress test #Shoulder pain: improved, An x-ray showed osteopenia, no focal lesions or fractures. -Consider using lidocaine before venipuncture #Itchiness: she is complaining of some generalized itchiness that moves around her body currently located in her back. There is no rash. This is likely a side effect of the Vicodin versus xerosis. She received some Benadryl with good effect.Benedryl prn itchiness #Vitamin D deficiency , with secondary hypeparathyroidism, hypocalcemia and hypomagnesemia This is probably caused by a vitamin D deficiency. -Replete vitamin D 23273U Qweekly -Calcitrol 0.25 g by mouth daily -Calcium carbonate 1250 mg by mouth daily -Appreciate Endocrine recommendations -Slo-Mag pO #Macrocytic anemia: -Most likely anemia of chronic disease with a low TIBC and normal iron and normal ferritin. Bilirubin and LDH has been normal,Her vitamin B12 was normal. We will monitor for blood loss. Stool guaiac negative. - hgb 8.9, mcv 97.6 today, We'll follow up on cbc/day #Hypotension: improved continue to Monitor BP #MISTY: improved creatinine around 1 today. #chronic Atrial fibrillation: continue diltiazem 240mg at bedtime, eliquis #Diabetes: Hold metformin; continue Accuchecks with sliding scale #GERD: Famotidine. Pain management with Tylenol mild/Dilaudid IV Q6 PRN Diabetic diet DVT prophylaxis Heparin Code status full code Problem List: 1. Left foot pain 2. Cellulitis 3. Atrial fibrillation, chronic 4. Lactic acidemia 5. Acute renal failure 6. PAD (peripheral artery disease) 7. Vitamin D deficiency 8. S/P angioplasty 9. Fluid retention 10. GERD (gastroesophageal reflux disease) 11. Anemia 12. Hyperparathyroidism 13. Diabetes 14. Hypocalcemia 15. Hypomagnesemia Pain Ratin Pain Location: left leg Pain Goal: Pain 4 or less Pain Plan: tylenol mild/Dilaudid IV Q6 PRN Tomorrow's Labs & Rationales: cbc bep DVT/Prophylaxis: pharmacological KELLY ARAUZ MD 11/10/16 1500: Attending MD Review Statement Attending Statement Attending MD Statement: examined this patient, discuss w/resident/PA/KEYLINER, agreed w/resident/PA/KEYLINER, reviewed EMR data (avail) Attending Assessment/Plan: 80F PMH Afib on eliquis, T2DM w/ neuropathy, HTN, B12 def anemia, CHF admitted initially for LLE cellulitis, has had persistent hypotension since admission with metabolic derangement including hypocalcemia, hypomagnesemia, lactic acidosis, MISTY. 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 Pituitary function appears intact. Renal function is improving. The patient is now off antibiotics. Angiogram done on 11/09 showed no occlusive disease. Patient slightly short of breath today, reports feeling swollen. CXR shows slightly worsening pleural effusion. 1. LLE cellulitis 2. Persistent hypotension 3. Hypocalcemia 4. Secondary hyperparathyroidism 5. Vitamin D deficiency 6. Hypomagnesemia 7. MISTY (resolved) 8. Lactic acidosis (resolved) Plan - Continue on general medicine - Increase Lasix to 40mg PO BID, monitor output and fluid status - Follow endocrine, nephrology, vascular, cardiology, and podiatry consults - Magnesium repletion with Slo-Mag - Continue Calcitriol, Ergocalciferol, calcium carbonate - Continue home medications - DVT PPx - Follow PT recommendations. If breathing is improved and no further surgical interventions, can be discharged to [facility] tomorrow.
[2016-11-10 14:52] VITALS: BP 114/60
[2016-11-10 23:13] VITALS: BP 112/68
[2016-11-11 06:50] VITALS: BP 118/70
[2016-11-11 08:41] LABS: ABSOLUTE BASOPHIL COUNT 0 /CUMM (0.0-0.2); ABSOLUTE EOSINOPHIL COUNT 0.1 /CUMM (0.0-0.7); ABSOLUTE GRANULOCYTE CT 4.1 /CUMM (1.4-6.5); ABSOLUTE LYMPH COUNT 1.1 /CUMM (1.2-3.4); ABSOLUTE MONOCYTE COUNT 0.4 /CUMM (0.10-0.60); BASOPHIL % 0.3 % (0.0-2.0); EOSINOPHIL % 1.3 % (0-5); GRANULOCYTE % 71.5 % (42.2-75.2); HEMATOCRIT 27.9 % (37-47); MEAN CORPUSCULAR HGB 31.9 PG (27.0-31.0); MEAN CORPUSCULAR VOLUME 96.6 FL (81.0-99.0); MEAN PLATELET VOLUME 8.3 FL (7.4-10.4); PLATELET COUNT 181 /CUMM (130-400); RBC DISTRIBUTION WIDTH 15.5 % (11.5-14.5); RED BLOOD CELL CT 2.89 /CUMM (4.20-5.40); WHITE BLOOD CELL COUNT 5.8 /CUMM (4.8-10.8)
--- NOTE | 2016-11-11 08:50 | PN- Endocrinology ---
Assessment/Plan Assessment: 80 year old female with PMH of Afib on eliquis, 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 Her BP has improved. Patient was found to have severe hypocalcemia, vitamin D deficiency and secondary hyperparathyroidism. She was put on vitamin d2 50,000 units once a week, calcitriol 0.25 mcg daily and calcium carbonate 1250 mg ( elemental calcium 500 mg) x 3 times a day initially. Her calcium level has improved. Currently she is on vitamin D2 50,000 units once a week and calcium carbonate 650 mg daily. with regards to DM, she is on Novolog coverage. Her FSGs were 150, 143, 121, 114 , 168, 88 and 76. Plan: continue the current calcium and vitamin D supplement; monitor calcium and 25 OH vitamin D level; continue the current Novolog coverage before meals; monitor her FSGs. will follow. Subjective Subjective: she still has swelling on her both LE. Objective Last 24 Hrs of Vital Signs/I&O Vital Signs Date Time Temp Pulse Resp B/P B/P Pulse O2 O2 Flow FiO2 Mean Ox Delivery Rate 11/11 0650 98.1 72 18 118/70 98 Nasal Cannula 11/10 2313 98.5 88 16 112/68 97 Nasal 2.0L Cannula 11/10 2249 Nasal 2.0L Cannula 11/10 1452 98.3 80 18 114/60 99 Nasal 2.0L Cannula Intake & Output 11/11 1600 11/11 0800 11/11 0000 Intake Total 550 1044 Output Total 200 Balance 550 844 Intake, Oral 550 1044 Number 2 1 Bowel Movements Output, Urine 200 Patient 192 lb Weight Results Pertinent Lab/Carlos Results: Laboratory Tests 11/11 0658 Chemistry Sodium Pending Potassium Pending Chloride Pending Carbon Dioxide Pending Anion Gap Pending BUN Pending Creatinine Pending BUN/Creatinine Ratio Pending Hematology CBC w Diff Pending WBC Pending RBC Pending Hgb Pending Hct Pending MCV Pending MCH Pending RDW Pending Plt Count Pending MPV Pending PUBS MCHC Pending
[2016-11-11] MEDS ORDERED: LASIX40 M1 PO (11:25)
[2016-11-11] MEDS ORDERED: SLOW-MAG71.5 MG PO (11:27)
--- NOTE | 2016-11-11 11:43 | Patient Discharge Instructions ---
Discharge Instructions General Discharge Information You were seen/treated for: Left lower leg cellulitis Persistent hypotension Hypocalcemia Secondary hyperparathyroidism Special Instructions: 1. Please f/u with your PCP within 1 week of discharge. 2. Please f/u with your library media specialist Dr Krishna in 1 week. 3. Please f/u with the vascular surgeon within 1 week of discharge. 4. Please f/u with territory sales manager medical after discharge. Diet Recommended Diet: Diabetic Acute Coronary Syndrome Inclusion Criteria At DC or during hospital stay patient has or had the following: ACS DIAGNOSIS No Discharge Core Measures Meds if any: Prescribed or Continued at Discharge Meds if any: NOT Prescribed or Continued at Discharge Congestive Heart Failure Inclusion Criteria At DC or during hospital stay patient has or had the following: CHF DIAGNOSIS No Discharge Core Measures Meds if any: Prescribed or Continued at Discharge Meds if any: NOT Prescribed or Continued at Discharge Cerebrovascular accident Inclusion Criteria At DC or during hospital stay patient has or had the following: CVA/TIA Diagnosis No Discharge Core Measures Meds if any: Prescribed or Continued at Discharge Meds if any: NOT Prescribed or Continued at Discharge Venous thromboembolism Inclusion Criteria VTE Diagnosis No VTE Type NONE VTE Confirmed by (Test) NONE Discharge Core Measures - Per Current guidelines, there needs to be overlap - treatment for the first 5 days of Warfarin therapy. - If discharged on Warfarin prior to 5 days of - overlap therapy, the patient will need to be - assessed for post discharge needs including - *Post discharge parental anticoagulation - *Warfarin and/or parental anticoagulation education - *Follow up date to check INR post discharge At least 5 days overlap therapy as Inpatient No Meds if any: Prescribed or Continued at Discharge Note: Overlap Therapy is Warfarin and Anticoagulant Meds if any: NOT Prescribed or Continued at Discharge
[2016-11-11] MEDS ORDERED: VITAMIN D250000 UNIT PO (11:54)
[2016-11-11] MEDS ORDERED: CALCIUM CARBON650 MG PO (11:54)
--- NOTE | 2016-11-11 12:02 | PN- Cardiology ---
Subjective Subjective: Complaining of bilateral lower extremity edema. Objective Vital Signs and I&Os Vital Signs Date Time Temp Pulse Resp B/P B/P Pulse O2 O2 Flow FiO2 Mean Ox Delivery Rate 11/11 0650 98.1 72 18 118/70 98 Nasal Cannula 11/10 2313 98.5 88 16 112/68 97 Nasal 2.0L Cannula 11/10 2249 Nasal 2.0L Cannula 11/10 1452 98.3 80 18 114/60 99 Nasal 2.0L Cannula Intake & Output 11/11 1600 11/11 0800 11/11 0000 11/10 1600 11/10 0811/10 0000 Intake Total 550 1044 600 300 835 Output Total 200 800 650 Balance 550 844 -200 300 185 Intake, IV 75 Intake, Oral 550 1044 600 300 760 Number 2 1 0 Bowel Movements Output, Urine 200 800 650 Patient 192 lb 195 lb Weight Weight Chair scale Measurement Method Physical Exam: Well-developed, obese and pale appearing elderly female in no acute distress. Vital signs: See above. Lungs: Few bibasilar crackles. Heart: S1, S2 with grade 2/6 systolic murmur. Extremities: Positive edema. Current Medications: Current Medications Sig/Abundio Start time Last Medication Dose Route Stop Time Status Admin Acetaminophen 650 MG Q6P PRN 10/31 2130 AC 11/04 PO 0909 Acetaminophen/ 2 TAB Q4P PRN 11/06 0930 AC 11/11 Hydrocodone Bitart PO 0131 Apixaban 2.5 MG BID 11/08 2200 AC 11/11 PO 0948 Atorvastatin Calcium 20 MG 1700 11/01 1700 AC 11/10 PO 1603 Bisacodyl 5 MG DAILY 11/10 1345 AC 11/11 PO 0948 Calcium Carbonate 650 MG DAILY 11/07 1000 AC 11/11 PO 0948 Diltiazem HCl 240 MG AT BEDTIME 11/01 2200 AC 11/10 PO 2056 Ergocalciferol 50,000 IU ONCE A WEEK 11/02 1000 AC 11/09 PO 12/21 1001 0956 Famotidine 20 MG DAILY 11/04 1136 AC 11/11 PO 0949 Furosemide 40 MG BID 11/10 2200 AC 11/11 PO 0948 Furosemide 40 MG DAILY 11/09 1559 DC 11/10 PO 0904 Hydromorphone HCl 1 MG Q6P PRN 07/11 1045 AC 11/09 IV 2227 Insulin Aspart 0 TIDAC 11/09 0800 AC 11/10 SC 1731 Magnesium Chloride 64 MG BID 11/10 1553 AC 11/11 PO 0949 Nystatin 1 FELICITY BID 11/09 2200 11/11 TOP 0948 Senna/Docusate Sodium 2 TAB DAILY 11/10 1344 AC 11/11 PO 0948 Results Last 48 Hrs of Labs/Mics: Laboratory Tests 11/11/16 0658: Anion Gap 11, Estimated GFR 53 L, BUN/Creatinine Ratio 13.0, CBC w Diff NO MAN DIFF REQ, RBC 2.89 L, MCV 96.6, MCH 31.9 H, RDW 15.5 H, MPV 8.3, Gran % 71.5, Lymphocytes % 19.4 L, Monocytes % 7.5, Eosinophils % 1.3, Basophils % 0.3, Absolute Granulocytes 4.1, Absolute Lymphocytes 1.1 L, Absolute Monocytes 0.4, Absolute Eosinophils 0.1, Absolute Basophils 0, PUBS MCHC 33.0 11/10/16 0635: Anion Gap 7, Estimated GFR 53 L, BUN/Creatinine Ratio 12.0, CBC w Diff NO MAN DIFF REQ, RBC 2.75 L, MCV 97.6, MCH 32.3 H, RDW 15.9 H, MPV 7.9, Gran % 71.4, Lymphocytes % 17.6 L, Monocytes % 9.7 H, Eosinophils % 1.0, Basophils % 0.3, Absolute Granulocytes 4.0, Absolute Lymphocytes 1.0 L, Absolute Monocytes 0.5, Absolute Eosinophils 0.1, Absolute Basophils 0, PUBS MCHC 33.1 11/09/16 1915: CBC w Diff NO MAN DIFF REQ, RBC 2.84 L, MCV 97.2, MCH 31.7 H, RDW 16.2 H, MPV 8.0, Gran % 77.6 H, Lymphocytes % 14.1 L, Monocytes % 7.5, Eosinophils % 0.7, Basophils % 0.1, Absolute Granulocytes 5.1, Absolute Lymphocytes 0.9 L, Absolute Monocytes 0.5, Absolute Eosinophils 0, Absolute Basophils 0, PUBS MCHC 32.6 L Recent Imaging Studies: CXR (11/10/2016): 1. There has been interval increase in the left pleural effusion with adjacent opacification, which may be consistent with atelectasis or developing consolidation. 2. There is stable cardiomegaly. Ultrasound right breast (11/09/2016): 1. Above findings are nonspecific but in the clinical setting provided would be consistent with diffuse cellulitis and mastitis. 2. No drainable abscess collection is seen. ASSESSMENT: Right breast: ACR BI-RADS 3: Probably benign finding - short interval follow up. Assessment/Plan Assessment/Plan [id number] w/ hx obesity, remote tobacco use, HTN, HLD, DM w/ neuropathy, suspected CKD, chronic anemia, and AF on Eliquis who presented to the ED after her OP furosemide had been increased from 20 mg to 40 mg daily with hypotension, metabolic acidosis possibly secondary to metformin 10/31/2016, hypocalcemia, hypomagnesemia, vitamin D deficiency with suspected hyperparathyroidism, and bilateral (left greater than right) foot pain with edema, erythema, ulcerations, etc. felt secondary to cellulitis was seen by vascular surgery (Yunier Brumfield M.D.) and a left lower extremity angiogram had been planned, but aborted after she became acutely short of breath without acute electrocardiographic or chest x-ray findings and who subsequently underwent angioplasty of the left anterior tibial artery on 11/08/2016 with postprocedure hypotension, anemia, etc. that improved with volume, PRBCs, etc. Complaining of increased bilateral lower extremity edema and CXR findings of increased left pleural effusion. She is confused about how much diuretic she was on as an outpatient. The medical record states she was on furosemide 40 mg twice daily, she thinks she was on furosemide 20 mg twice daily. Recommendation: * Continue on telemetry, follow-up ECG, check troponin. * Replete potassium and follow-up magnesium level. * Increase diuretic dosage to help improve lower extremity edema. * Anticoagulation as per vascular surgery. * Check CXR in a.m. following a good diuresis. * DVT prophylaxis.
[2016-11-11 14:09] VITALS: BP 118/70
--- NOTE | 2016-11-11 15:09 | PN- Att Addend ---
Attending Addendum Attending Brief Note 80F PMH Afib on eliquis, T2DM w/ neuropathy, HTN, B12 def anemia, CHF admitted initially for LLE cellulitis, has had persistent hypotension since admission with metabolic derangement including hypocalcemia, hypomagnesemia, lactic acidosis, MISTY. 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 Pituitary function appears intact. Renal function is improving. The patient is now off antibiotics. Angiogram done on 11/09 showed no occlusive disease. Shortness of breath is resolved. Patient still with lower extremity edema that is improving with excellent diuresis from increased Lasix. AFVSS NAD, comfortable Anicteric Supple RRR CTAB Soft, NTND 1+ edema to knees bilaterally Pulses diminished bilaterally, unchanged in feet A&Ox3 no focal deficits Current Medications Sig/Abundio Start time Last Medication Dose Route Stop Time Status Admin Acetaminophen 650 MG Q6P PRN 10/31 2130 AC 11/04 PO 0909 Acetaminophen/ 2 TAB Q4P PRN 11/06 0930 AC 11/11 Hydrocodone Bitart PO 0131 Apixaban 2.5 MG BID 11/08 2200 AC 11/11 PO 0948 Atorvastatin Calcium 20 MG 1700 11/01 1700 AC 11/10 PO 1603 Bisacodyl 5 MG DAILY 11/10 1345 AC 11/11 PO 0948 Calcium Carbonate 650 MG DAILY 11/07 1000 AC 11/11 PO 0948 Diltiazem HCl 240 MG AT BEDTIME 11/01 2200 AC 11/10 PO 2056 Ergocalciferol 50,000 IU ONCE A WEEK 11/02 1000 AC 11/09 PO 12/21 1001 0956 Famotidine 20 MG DAILY 11/04 1136 AC 11/11 PO 0949 Furosemide 40 MG BID 11/10 2200 AC 11/11 PO 0948 Hydromorphone HCl 1 MG Q6P PRN 11/08 1045 AC 11/09 IV 2227 Insulin Aspart 0 TIDAC 11/09 0800 AC 11/10 SC 1731 Magnesium Chloride 64 MG BID 11/10 1553 AC 11/11 PO 0949 Nystatin 1 FELICITY BID 11/09 2200 AC 11/11 TOP 0948 Patient Medication 1 ED .STK-MED ONE 11/11 1436 DC Teaching ED 11/11 1437 Senna/Docusate Sodium 2 TAB DAILY 11/10 1344 AC 11/11 PO 0948 Laboratory Tests 11/11 0658 Chemistry Sodium (137 - 145 mmol/L) 141 Potassium (3.5 - 5.1 mmol/L) 3.9 Chloride (98 - 107 mmol/L) 106 Carbon Dioxide (22 - 30 mmol/L) 23 Anion Gap (5 - 16) 11 BUN (7 - 17 mg/dL) 13 Creatinine (0.5 - 1.0 mg/dL) 1.0 Estimated GFR (>60 ml/min) 53 L BUN/Creatinine Ratio (7 - 25 %) 13.0 Hematology CBC w Diff NO MAN DIFF REQ WBC (4.8 - 10.8 /CUMM) 5.8 RBC (4.20 - 5.40 /CUMM) 2.89 L Hgb (12.0 - 16.0 G/DL) 9.2 L Hct (37 - 47 %) 27.9 L MCV (81.0 - 99.0 FL) 96.6 MCH (27.0 - 31.0 PG) 31.9 H RDW (11.5 - 14.5 %) 15.5 H Plt Count (130 - 400 /CUMM) 181 MPV (7.4 - 10.4 FL) 8.3 Gran % (42.2 - 75.2 %) 71.5 Lymphocytes % (20.5 - 51.1 %) 19.4 L Monocytes % (1.7 - 9.3 %) 7.5 Eosinophils % (0 - 5 %) 1.3 Basophils % (0.0 - 2.0 %) 0.3 Absolute Granulocytes (1.4 - 6.5 /CUMM) 4.1 Absolute Lymphocytes (1.2 - 3.4 /CUMM) 1.1 L Absolute Monocytes (0.10 - 0.60 /CUMM) 0.4 Absolute Eosinophils (0.0 - 0.7 /CUMM) 0.1 Absolute Basophils (0.0 - 0.2 /CUMM) 0 PUBS MCHC (33.0 - 37.0 G/DL) 33.0 Vital Signs Date Time Temp Pulse Resp B/P B/P Pulse O2 O2 Flow FiO2 Mean Ox Delivery Rate 11/11 1409 98.1 72 18 118/70 11/11 0800 Nasal 2.0L Cannula 11/11 0650 98.1 72 18 118/70 98 Nasal Cannula 11/10 2313 98.5 88 16 112/68 97 Nasal 2.0L Cannula 11/109 Nasal 2.0L Cannula Intake & Output 11/11 1600 11/11 0800 11/11 0000 Intake Total 431 020 3211 Output Total 700 200 Balance 200 550 844 Intake, Oral 328 012 5926 Number 2 2 1 Bowel Movements Output, Urine 700 200 Patient 87.203 kg Weight 1. LLE cellulitis 2. Persistent hypotension 3. Hypocalcemia 4. Secondary hyperparathyroidism 5. Vitamin D deficiency 6. Hypomagnesemia 7. MISTY (resolved) 8. Lactic acidosis (resolved) Plan - Stable for discharge - Increase Lasix to 40mg PO BID - Follow endocrine, nephrology, vascular, cardiology, and podiatry consults - Continue home medications
== END 2016-11-11 15:15 | DRG 253 ==
LOC: ERH 17:08 → 1NO 21:58 → ERHI 21:58 → 2NA 21:58 → ENRESERV 22:26 → 2NA 11-01 01:02 → ENTRNSPT 11-04 13:42 → EDTRNSPTSTS 11-04 13:55 → CMPTRNSPT 11-04 14:10 → 1NO 11-08 19:13 → ENTRNSPT 11-08 19:40 → EDTRNSPTSTS 11-08 19:59 → CMPTRNSPT 11-08 20:16 → 1NO 11-09 09:40
PROVIDERS: Anesthesiology; Internal Medicine; Physician Assistant Medical; Preventive Medicine Public Health & General Preventive Medicine; Student in an Organized Health Care Education/Training Program; ADMIT Student in an Organized Health Care Education/Training Program
PROC: 047Q3ZZ Dilation of Left Anterior Tibial Artery, Percutaneous Approach (ICD-10-PCS; principal; 2016-11-08)
PROC: 30233N1 Transfusion of Nonautologous Red Blood Cells into Peripheral Vein, Percutaneous Approach (ICD-10-PCS; 2016-11-08)
DX: E11.51 Type 2 diabetes mellitus with diabetic peripheral angiopathy without gangrene (principal); L03.116 Cellulitis of left lower limb; N17.9 Acute kidney failure, unspecified; L89.152 Pressure ulcer of sacral region, stage 2; E87.2 Acidosis; E11.40 Type 2 diabetes mellitus with diabetic neuropathy, unspecified; I11.0 Hypertensive heart disease with heart failure; D62 Acute posthemorrhagic anemia; I50.9 Heart failure, unspecified; I95.2 Hypotension due to drugs; L97.421 Non-pressure chronic ulcer of left heel and midfoot limited to breakdown of skin; L97.411 Non-pressure chronic ulcer of right heel and midfoot limited to breakdown of skin; E86.0 Dehydration; I48.91 Unspecified atrial fibrillation; I73.9 Peripheral vascular disease, unspecified; T50.1X5A Adverse effect of loop [high-ceiling] diuretics, initial encounter; Z79.84 Long term (current) use of oral hypoglycemic drugs; E20.8 Other hypoparathyroidism; R01.1 Cardiac murmur, unspecified; E83.51 Hypocalcemia; E83.42 Hypomagnesemia; E55.9 Vitamin D deficiency, unspecified; M25.512 Pain in left shoulder; Z79.01 Long term (current) use of anticoagulants; Z87.891 Personal history of nicotine dependence; H91.93 Unspecified hearing loss, bilateral; K59.00 Constipation, unspecified; K42.9 Umbilical hernia without obstruction or gangrene
CPT/HCPCS: 1NSP; 2NASP; 84133; 84300; ERO; 36415; 73060-LT; 73590-LT; 73620-LT; 73620-RT; 76641-RT; 81001; 82436; 82570; 83010; 86920; 87040; 87086; 93005; 93010; 93306; 93925; 96374; 97110-GO; 97116-GO; 97162-GP; 97530-GO; C1725; C1760; J0131; J0610; J0690; J0696; J1644; J1815; J7040; J7042; P9016; Q9967